=== PATIENT | female | born 1960 | race Caucasian/White ===

== ENCOUNTER 2016-08-19 13:33 | Inpatient (IN) | payer OTHER ==
[~2016-08-19] VITALS: Ht 162.5 cm
--- NOTE | ~2016-08-19 | PR ---
[place], [place] PROGRESS NOTE NAME: MONI CRONIN UNIT #: [id number] ROOM: 424 DOCTOR: IZABELA ALANIZ MD BIRTHDATE: [birth year] DOS: 08/23/2016 SUBJECTIVE: The patient has been admitted to hospital with history of marked weakness and difficulty in walking and the patient has severe arthritis of the back and hips that was causing the pain. She has also acute urinary tract infection with sepsis. The patient is feeling better now. Her urine culture and sensitivity shows E. coli infection, heavy growth of gram-positive bacteria, presently it is sensitive to many antibiotics including the one which she is already taking. CAT scan of the lumbar spine has been done, which showed chronic compression deformity of thoracolumbar junction, kyphosis, stable from the prior study, multilevel central canal stenosis, subarticular space compromise and L4-L5 foraminal compromise are noted and also felt to be chronic in nature. Her blood pressure is 110/62, pulse 68, respirations 18, temperature 98.5. The patient is having chronic renal failure and on hemodialysis and getting it. The patient is feeling better except some pain in the hip and the back. IZABELA ALANIZ MD CM:STEPHANIA [id number] IZABELA ALANIZ MD 09/29/16 1128 interface
--- NOTE | ~2016-08-19 | PR ---
[place], [place] PROGRESS NOTE [id number] UNIT #: [id number] ROOM: 424 DOCTOR: RANJANA GRIFFIN MD BIRTHDATE: [birth year] DOS: 08/21/2016 I am seeing this patient on behalf of Dr. Rosales. SUBJECTIVE: She is much better just finished her dinner. She is not short of breath, feels no palpitations and has no chest pain. She had left thoracentesis done. OBJECTIVE: GENERAL: She looks much better. Breathing is pretty comfortable. Her complexion looks reasonable. VITAL SIGNS: Pulse is 80 irregular at about 80 beats per minute. NECK: JVP is normal. CARDIOVASCULAR: Auscultation reveals irregular heart rate at about 80 beats per minute. No edema of the lower extremities. LUNGS: Breath sounds are diminished. She has crackles in both lungs, moreso on the right than on the left side. LABORATORY DATA: Monitor shows normal sinus rhythm at about 70-80 beats per minute. IMPRESSION: This patient has paroxysmal atrial fibrillation and is in normal sinus rhythm now and she is on Eliquis and current cardiac medications should be continued. From cardiac point, she may be discharged home. RANJANA GRIFFIN MD CM:PNTRANS [id number] RANJANA GRIFFIN MD 08/22/16 0747 interface
--- NOTE | ~2016-08-19 | PR ---
[place], [place] PROGRESS NOTE [id number] UN[facility] #: [id number] ROOM: 424 DOCTOR: IZABELA ALANIZ MD BIRTHDATE: [birth year] DOS: 08/22/2016 SUBJECTIVE: The patient who has been admitted to hospital with history of marked weakness and difficulty in walking. She fell down at home and sustained injury of the right shoulder and right hip, and she is complaining that she is feeling very weaker, not able to walk. She is getting physical therapy and has been seen by Dr. Retana for cardiac problem and he does not think there is any acute cardiac problem. She is having shortness of breath and anemia. Her basic metabolic profile showed glucose 82, BUN 32, creatinine 6.92. GFR is 6. CBC showed her hemoglobin 9.2, hematocrit 29.6, MCV 102.1. OBJECTIVE: VITAL SIGNS: Her blood pressure is 124/60, pulse 66, respirations 18, temperature 97.9. CHEST: Clear. HEART: Regular. ABDOMEN: Soft. The patient is getting dialysis for her chronic renal failure. IZABELA ALANIZ MD CM:PNTRANS [id number] IZABELA ALANIZ MD 09/29/16 1130 interface
--- NOTE | ~2016-08-19 | PR ---
[place], [place] PROGRESS NOTE [id number] UNIT #: [id number] ROOM: 424 DOCTOR: RANJANA GRIFFIN MD BIRTHDATE: [birth year] DOS: 08/21/2016 SUBJECTIVE: She feels much better. She walked around in the room a little bit today. She had diagnosis done and did not have chest pain or palpitations. Her breathing is pretty good. OBJECTIVE: GENERAL: She is very obese, pleasant, alert. VITAL SIGNS: Pulse is regular at 80, blood pressure is fine. NECK: JVP is difficult to assess. LUNGS: Clear. EXTREMITIES: No edema of the lower extremities. IMPRESSION: This patient has coronary disease and troponin I level was slightly and above normal, most likely due to severe anemia that she had along with hypertension and end-stage renal disease. From cardiac standpoint, she may be discharged home. RANJANA GRIFFIN MD CM:PNTRANS [phone] RANJANA GRIFFIN MD 08/22/16 0754 interface
--- NOTE | ~2016-08-19 | PR ---
[place], [place] PROGRESS NOTE [id number] UNIT #: [id number] ROOM: 424 DOCTOR: STACY CRONIN MD BIRTHDATE: [birth year] DOS: SUBJECTIVE: Twenty four-hour events noted. Discussed with the nursing staff. The patient's condition has not much changed since yesterday. OBJECTIVE: VITAL SIGNS: The last blood pressure is 130/50, heart rate is 69. HEENT: Unremarkable. NECK: Supple, no JVD. LUNGS: Diminished breath sounds. ABDOMEN: Soft, obese. EXTREMITIES: No edema. The patient does have some wheezing. GENERAL: The patient is morbidly obese. No rebound tenderness. LABORATORY DATA: Sodium 136. Hemoglobin 8.9, hematocrit 29.4. Sodium 141, potassium 4.7, BUN 24, creatinine 5.5, GFR is 8. IMPRESSION: End-stage renal disease, on dialysis, morbid obesity, atypical chest pain, gastroesophageal reflux disease, psoriasis, and hypertension. PLAN: Continue the present medication. Continue with dialysis. The patient has chronic hip pain. The patient had a hip x-ray basically showed bilateral osteoarthritis to a mild degree. Continue the pain medications and we will follow up. STACY CRONIN MD CM:PNTRANS 0705 20 STACY CRONIN MD 08/25/16 232 interface
--- NOTE | ~2016-08-19 | CON ---
[place], [place] REPORT OF CONSULTATION NAME[id number] UNIT #: [id number] ROOM: 424 DOCTOR: RANJANA GRIFFIN MD BIRTHDATE: [birth year] DOS: 08/20/2016 HISTORY OF PRESENT ILLNESS: This is a 55-year-old -[place] woman with a history of coronary artery disease. She had stents deployed in the left anterior descending artery a few years ago, this was done by me in [facility]. She has essential hypertension, end-stage renal disease and dialyzes 3 times a week, GERD, has had chronic anemia and morbid obesity. She does not have diabetes mellitus and never had a stroke or COPD. She quit smoking a very long time ago. No use of alcohol. FAMILY HISTORY: Positive for coronary artery disease, diabetes mellitus and hypertension. She was in the [facility] a few days ago and had her fistula recanalized I believe and at that time, she was found to have severe anemia. I believe hemoglobin was below 7 grams and she was transfused with 2 units of packed RBCs and the hemoglobin jordana to about 9 grams. She had developed some abdominal discomfort and has been constipated, felt very uncomfortable and came to the Emergency Department. She did not have any chest pain, pressure, heaviness and neck discomfort or arm discomfort. She did not have any undue shortness of breath or/more than usual shortness of breath and had no palpitations, dizziness or loss of consciousness and has not had any swelling of the lower extremities. HOME MEDICATIONS: Include aspirin, calcitriol, calcium acetate, calcium carbonate, carvedilol 25 b.i.d., clopidogrel 75 mg daily, famotidine 20 mg daily, hydrocodone p.r.n. Micardis 40 mg daily, Enbrel and Diastat cream. PHYSICAL EXAMINATION: GENERAL: The patient who is very pleasant, alert. She is moderately obese, looks little pale. No finger clubbing. VITAL SIGNS: Pulse is regular at 80 beats per minute, blood pressure 152/81. NECK: JVP difficult to assess. There is no obvious carotid bruit. HEART: There is no cardiomegaly. Auscultation revealed distant heart sounds. No rub. EXTREMITIES: She had no edema at all in the lower extremities and pedal pulses are palpable. LUNGS: Clear to auscultation and percussion with reduced breath sounds because of obesity. DIAGNOSTIC STUDIES: An ECG showed normal sinus rhythm with minimal ST segment depression in V5 and V6 and lead 1. An ECG on 10/15/[address] segment depression in similar leads. LABORATORY DATA: Troponin I level was 0.732 and 0.883. A week earlier, it was essentially normal. IMPRESSION: This patient with known coronary artery disease, has slightly increased troponin I level, but is entirely asymptomatic. Elevation of troponin is fairly common in patient with end-stage renal disease, the patient with [place], [place] REPORT OF CONSULTATION NAME: MONI CRONIN UNIT #: [id number] ROOM: 424 DOCTOR: RANJANA GRIFFIN MD BIRTHDATE: [birth year] volume overload and anemia. She had got severe anemia last week and this may be contributing to slightly increased troponin I level (this is probably due to her oxygen supply demand issue rather than occlusion of epicardial artery). At this time, I do not recommend any further cardiac workup. Should she develop any chest pain or heaviness, then one need to consider a normal noninvasive testing such as Lexiscan Cardiolite to look for any ischemia. She is not on a statin drug and I think this would be appropriate if no contraindication or side effects have been noted previously. I thank you for this consult. RANJANA GRIFFIN MD CM:CONSTR:REPORT OF CONSULTATION 0635 09/29/16 1138 interface EVA MALDONADO MD
--- NOTE | ~2016-08-19 | EKG ---
[place], [place] ELECTROCARDIOGRAM REPORT NAME: MONI CRONIN UNIT #: [id number] ROOM: 424 DOCTOR: RANJANA GRIFFIN MD BIRTHDATE: [birth year] DOS: 08/19/2016 TIME: 1459 hours. Normal sinus rhythm at 81 beats per minute. Minimal ST segment depression in V5 and V6 and lead I. No previous tracing is available for comparison. RANJANA GRIFFIN MD CM:EKGRPT:ELECTROCARDIOGRAM REPORT 0610 0800 RANJANA GRIFFIN MD
[2016-08-19 13:33] VITALS: BP 141/66
[~2016-08-19 13:33] MED LIST: ALAVERT D-12 HO1 T12 PO; ALBUTEROL0.09 MG/A2 IH; ANCEF1 GM; ANTIVERT/2525 MG PO; ASPIRIN ADULT L81 M1 PO; ASPIRIN ADULT L81 M2 PO; ASPIRIN325 MG PO; BENADRYL25 MG PO; CALCIUM ACETAT667 M2 PO; CIPROFLOXACIN500 MG PO; CLARITIN10 MG PO; COLACE100 MG PO; COREG CR40 MG PO; COREG12.5 MG PO; COREG25 MG PO; CUBICIN500 MG IV; DIPHENHYDRAMINE50 M1 PO; ENBREL50 MG/ML SC; FIORICET 325 MG1 TAB PO; FLEXERIL5 MG PO; FLONASE 0.05% 121 EA NAS; FLONASE ALLERG9.9 ML NAS; FLONASE0.05 MG/AC NS; HYCODAN/HYDROMET5 ML PO; HYDROCODONE BIT1 T11 PO; KEFLEX500 MG PO; KENALOG0.5% TP; MACROBID100 M1 PO; MECLIZINE HCL25 M1 PO; MEDROL DOSEPAK4 MG PO; MICARDIS40 M1 PO; MICARDIS40 MG PO; NIACIN50 MG PO; Nystatin Cream15 GM T; PEPCID20 MG PO; PLAVIX75 M1 PO; PLAVIX75 MG PO; PREDNICOT20 MG PO; PREDNISONE10 MG PO; PREDNISONE20 M1 PO; PREDNISONE20 MG PO; RENVELA800 MG PO; ROBITUSSIN DM 105 ML PO; Rocaltrol0.25 MCG PO; TOBRADEX 0.1%-0.5 ML OPH; TUMS EXTRA STR750 MG PO; TUMS SMOOTHIES750 M1 PO; VENTOLIN H0.09 MG/AC INH; VICODIN 5-3001 EACH PO; VICODIN 5/500 505 MG PO; VICODIN ES 7501 TAB PO; VITAMIN D-32000 UNIT PO; VITAMIN D50000 I3 PO; ZITHROMAX Z PA250 MG PO; ZITHROMAX250 MG PO; ZYRTEC10 MG PO
[2016-08-19 14:28] LABS: HEMATOCRIT 32.8 % (37.0-47.0); HEMOGLOBIN 10.6 g/dl (12.0-16.0); MEAN CORPUSCULAR HGB 32.3 pg (27.0-31.0); MEAN CORPUSCULAR HGB CONC 32.3 g/dl (33.0-37.0); NUCLEATED RED BLOOD CELL 0.1 10*3/uL (0.0-0.0); NUCLEATED RED BLOOD CELL 0.4 % (0.0-0.0); PLATELET COUNT AUTOMATED 241 10*3/uL (130-400); RED BLOOD COUNT 3.28 10*6/uL (4.10-5.10); RED CELL DISTRI WIDTH 16.4 % (0-14.5); WHITE BLOOD COUNT 12.3 10*3/uL (4.8-10.8)
[2016-08-19 14:44] LABS: ALBUMIN 2.6 gm/dl (3.1-4.5); BILIRUBIN, TOTAL 0.4 mg/dl (0.2-1.0); POTASSIUM 3.9 mmol/L (3.5-5.1); TOTAL PROTEIN 7.1 gm/dL (6.4-8.2)
[2016-08-19 14:46] LABS: TROPONIN I 0.967 ng/ml (<0.5)
[2016-08-19 14:47] LABS: LYMPHOCYTE # 1.5 10*3/uL (1.3-4.4); METAMYELOCYTES 1 % (0-0); MONOCYTE # 0.7 10*3/uL (0.1-1.0); NEUTROPHILS 81 % (47-73); PLATELET SUFFICIENCY NORMAL (NORMAL); POLYCHROMASIA SLIGHT; TOTAL CELLS COUNTED 100 #CELLS
[2016-08-19 15:00] VITALS: BP 140/88
[2016-08-19 18:12] VITALS: BP 150/84
[2016-08-19 18:23] LABS: CKMB 1.1 ng/ml (0.5-3.6)
[2016-08-19 18:35] LABS: TROPONIN I 0.883 ng/ml (<0.5)
[2016-08-19 20:00] VITALS: BP 152/81
[2016-08-20 00:43] LABS: CKMB 0.9 ng/ml (0.5-3.6)
[2016-08-20 00:45] LABS: TROPONIN I 0.732 ng/ml (<0.5)
[2016-08-20 06:39] LABS: CKMB 1.1 ng/ml (0.5-3.6)
[2016-08-20 06:45] LABS: BASO % 0.3 % (0.0-1.0); EOS # 0.2 10*3/uL (0.0-0.4); EOS % 1.5 % (1.0-4.0); HEMATOCRIT 30.4 % (37.0-47.0); HEMOGLOBIN 9.7 g/dl (12.0-16.0); IG # 0.2 10*3/uL (0.0-0.1); LYMPH # 1.5 10*3/uL (1.3-4.4); LYMPH % 14.3 % (27.0-41.0); MEAN CELL VOLUME 100.7 fl (81.0-99.0); MEAN CORPUSCULAR HGB 32.1 pg (27.0-31.0); MEAN CORPUSCULAR HGB CONC 31.9 g/dl (33.0-37.0); MONO # 0.9 10*3/uL (0.1-1.0); NEUT # 7.6 10*3/uL (2.3-7.9); NEUT % 73.2 % (47.0-73.0); NUCLEATED RED BLOOD CELL 0.1 10*3/uL (0.0-0.0); NUCLEATED RED BLOOD CELL 0.6 % (0.0-0.0); PLATELET COUNT AUTOMATED 237 10*3/uL (130-400); RED BLOOD COUNT 3.02 10*6/uL (4.10-5.10); RED CELL DISTRI WIDTH 15.8 % (0-14.5); WHITE BLOOD COUNT 10.4 10*3/uL (4.8-10.8)
[2016-08-20 06:46] LABS: TROPONIN I 0.698 ng/ml (<0.5)
[2016-08-20 07:03] LABS: ALBUMIN 2.6 gm/dl (3.1-4.5); BILIRUBIN, TOTAL 0.2 mg/dl (0.2-1.0); MAGNESIUM 2.2 mg/dL (1.5-2.1); PHOSPHOROUS 3.5 mg/dL (2.5-4.9); POTASSIUM 4.3 mmol/L (3.5-5.1); TOTAL PROTEIN 6.4 gm/dL (6.4-8.2)
[2016-08-20 16:00] VITALS: BP 128/53
[2016-08-20 18:48] LABS: BILIRUBIN NEGATIVE (NEGATIVE); BLOOD 2+ (NEGATIVE); CLARITY SL CLOUDY (CLEAR); COLOR YELLOW (YELLOW); GLUCOSE NEGATIVE (NEGATIVE); KETONE NEGATIVE (NEGATIVE); LEUKO ESTERASE 2+ (NEGATIVE); NITRITE NEGATIVE (NEGATIVE); PH 8.5 (5.0-9.0); PROTEIN 2+ (NEGATIVE); SPECIFIC GRAVITY 1.015 (1.005-1.030); UROBILINOGEN 0.2 E.U./dl (0.2-1.0)
[2016-08-20 18:56] LABS: EPITHELIAL CELLS 15-20; RBC 0-2 rbc/hpf (0-2)
[2016-08-20 18:57] LABS: BACTERIA 4+; URINE REFLEX COMMENT YES (NO)
[2016-08-20 20:00] VITALS: BP 143/49
[2016-08-21] VITALS: BP 134/60
[2016-08-21 07:43] LABS: BASO % 0.3 % (0.0-1.0); EOS # 0.5 10*3/uL (0.0-0.4); EOS % 5.1 % (1.0-4.0); HEMATOCRIT 29.6 % (37.0-47.0); HEMOGLOBIN 9.2 g/dl (12.0-16.0); IG # 0.1 10*3/uL (0.0-0.1); LYMPH # 2.3 10*3/uL (1.3-4.4); LYMPH % 22.5 % (27.0-41.0); MEAN CELL VOLUME 102.1 fl (81.0-99.0); MEAN CORPUSCULAR HGB 31.7 pg (27.0-31.0); MEAN CORPUSCULAR HGB CONC 31.1 g/dl (33.0-37.0); MEAN PLATELET VOLUME 11.1 fl (9.6-12.3); MONO % 9.7 % (3.0-9.0); NEUT # 6.1 10*3/uL (2.3-7.9); NEUT % 61.1 % (47.0-73.0); NUCLEATED RED BLOOD CELL 0.1 10*3/uL (0.0-0.0); NUCLEATED RED BLOOD CELL 0.6 % (0.0-0.0); PLATELET COUNT AUTOMATED 267 10*3/uL (130-400); RED CELL DISTRI WIDTH 15.5 % (0-14.5)
[2016-08-21 08:00] VITALS: BP 122/62
[2016-08-21 08:08] LABS: POTASSIUM 4.5 mmol/L (3.5-5.1)
[2016-08-21] MEDS ORDERED: BACTRIM DS 8001 TAB PO (15:50)
[2016-08-21 16:00] VITALS: BP 116/54
[2016-08-21 20:00] VITALS: BP 108/66
[2016-08-22] VITALS (7 sets, daily range): BP systolic 90–135; BP diastolic 50–63
[2016-08-22] MEDS ORDERED: COLACE100 MG PO (21:19)
[2016-08-23] VITALS: BP 135/73
[2016-08-23 08:00] VITALS: BP 126/46
[2016-08-23 12:00] VITALS: BP 110/62
[2016-08-23 16:00] VITALS: BP 119/52
[2016-08-23 20:00] VITALS: BP 124/58
[2016-08-24] VITALS: BP 125/72
[2016-08-24 08:00] VITALS: BP 110/37
[2016-08-24 08:41] LABS: BASO % 0.1 % (0.0-1.0); EOS # 0.3 10*3/uL (0.0-0.4); EOS % 2.3 % (1.0-4.0); HEMATOCRIT 28.3 % (37.0-47.0); HEMOGLOBIN 8.8 g/dl (12.0-16.0); IG # 0.1 10*3/uL (0.0-0.1); LYMPH # 1.3 10*3/uL (1.3-4.4); LYMPH % 11.3 % (27.0-41.0); MEAN CORPUSCULAR HGB 32.4 pg (27.0-31.0); MEAN CORPUSCULAR HGB CONC 31.1 g/dl (33.0-37.0); MEAN PLATELET VOLUME 10.9 fl (9.6-12.3); MONO % 9.2 % (3.0-9.0); NEUT # 8.4 10*3/uL (2.3-7.9); NEUT % 76.5 % (47.0-73.0); PLATELET COUNT AUTOMATED 303 10*3/uL (130-400); RED BLOOD COUNT 2.72 10*6/uL (4.10-5.10); RED CELL DISTRI WIDTH 15.6 % (0-14.5)
[2016-08-24 08:53] LABS: ALBUMIN 2.2 gm/dl (3.1-4.5); PHOSPHOROUS 5.4 mg/dL (2.5-4.9); POTASSIUM 5.6 mmol/L (3.5-5.1)
[2016-08-24 09:05] VITALS: BP 149/86
[2016-08-24 12:00] VITALS: BP 133/70
[2016-08-24 16:00] VITALS: BP 120/48
[2016-08-24 20:00] VITALS: BP 154/74
[2016-08-25] VITALS: BP 137/57
[2016-08-25 06:19] LABS: BASO % 0.1 % (0.0-1.0); EOS # 0.3 10*3/uL (0.0-0.4); EOS % 2.9 % (1.0-4.0); HEMATOCRIT 29.4 % (37.0-47.0); HEMOGLOBIN 8.9 g/dl (12.0-16.0); IG # 0.1 10*3/uL (0.0-0.1); LYMPH # 1.1 10*3/uL (1.3-4.4); LYMPH % 12.6 % (27.0-41.0); MEAN CORPUSCULAR HGB 31.8 pg (27.0-31.0); MEAN CORPUSCULAR HGB CONC 30.3 g/dl (33.0-37.0); MEAN PLATELET VOLUME 10.6 fl (9.6-12.3); MONO # 1.1 10*3/uL (0.1-1.0); MONO % 12.6 % (3.0-9.0); NEUT # 6.3 10*3/uL (2.3-7.9); NEUT % 71.2 % (47.0-73.0); PLATELET COUNT AUTOMATED 294 10*3/uL (130-400); RED CELL DISTRI WIDTH 15.9 % (0-14.5); WHITE BLOOD COUNT 8.9 10*3/uL (4.8-10.8)
[2016-08-25 06:52] LABS: POTASSIUM 4.7 mmol/L (3.5-5.1)
[2016-08-25 08:00] VITALS: BP 129/49
[2016-08-25] MEDS ORDERED: WALKER (10:42)
[2016-08-25 12:00] VITALS: BP 99/43
[2016-08-25 16:00] VITALS: BP 135/43
[2016-08-25 20:00] VITALS: BP 107/75
[2016-08-25 23:19] LABS: BILIRUBIN NEGATIVE (NEGATIVE); BLOOD 2+ (NEGATIVE); CLARITY SL CLOUDY (CLEAR); COLOR YELLOW (YELLOW); GLUCOSE NEGATIVE (NEGATIVE); KETONE NEGATIVE (NEGATIVE); LEUKO ESTERASE 1+ (NEGATIVE); NITRITE NEGATIVE (NEGATIVE); PH 8.5 (5.0-9.0); PROTEIN 2+ (NEGATIVE); UROBILINOGEN 0.2 E.U./dl (0.2-1.0)
[2016-08-25 23:30] LABS: BACTERIA TRACE; EPITHELIAL CELLS TNTC; URINE REFLEX COMMENT YES (NO)
[2016-08-26] VITALS: BP 131/59
[2016-08-26 07:41] VITALS: BP 100/72
[2016-08-26 08:30] LABS: BASO % 0.3 % (0.0-1.0); EOS # 0.4 10*3/uL (0.0-0.4); EOS % 5.5 % (1.0-4.0); HEMATOCRIT 28.7 % (37.0-47.0); HEMOGLOBIN 8.7 g/dl (12.0-16.0); LYMPH # 0.9 10*3/uL (1.3-4.4); LYMPH % 11.9 % (27.0-41.0); MEAN CELL VOLUME 105.1 fl (81.0-99.0); MEAN CORPUSCULAR HGB 31.9 pg (27.0-31.0); MEAN CORPUSCULAR HGB CONC 30.3 g/dl (33.0-37.0); MEAN PLATELET VOLUME 10.9 fl (9.6-12.3); MONO % 13.9 % (3.0-9.0); PLATELET COUNT AUTOMATED 305 10*3/uL (130-400); RED BLOOD COUNT 2.73 10*6/uL (4.10-5.10); RED CELL DISTRI WIDTH 15.8 % (0-14.5); WHITE BLOOD COUNT 7.3 10*3/uL (4.8-10.8)
[2016-08-26 08:43] LABS: ALBUMIN 2.1 gm/dl (3.1-4.5); PHOSPHOROUS 6.3 mg/dL (2.5-4.9); POTASSIUM 5.1 mmol/L (3.5-5.1)
[2016-08-26 12:00] VITALS: BP 129/72
[2016-08-26 16:00] VITALS: BP 156/84
[2016-08-26 20:00] VITALS: BP 123/51
[2016-08-27] VITALS: BP 120/44
[2016-08-27 08:00] VITALS: BP 130/50
[2016-08-27 12:00] VITALS: BP 122/59
[2016-08-27] MEDS ORDERED: TESSALON PERLE100 MG PO (13:32)
== END 2016-08-27 14:58 | disposition home or self-care (01) | DRG 871 ==
LOC: ED 13:33 → 4E 16:54 → EDHOLD 16:54 → 4E 17:54
PROVIDERS: Emergency Medicine; Hospitalist; Internal Medicine Nephrology
PROC: 5A1D60Z (ICD-10-PCS; principal; 2016-08-20)
DX: A41.9 Sepsis, unspecified organism (principal); E43 Unspecified severe protein-calorie malnutrition; I12.0 Hypertensive chronic kidney disease with stage 5 chronic kidney disease or end stage renal disease; N18.6 End stage renal disease; I48.0 Paroxysmal atrial fibrillation; Z68.42 Body mass index [BMI] 45.0-49.9, adult; N39.0 Urinary tract infection, site not specified; E83.41 Hypermagnesemia; R07.89 Other chest pain; M79.652 Pain in left thigh; M25.552 Pain in left hip; M25.551 Pain in right hip; E83.9 Disorder of mineral metabolism, unspecified; D63.1 Anemia in chronic kidney disease; D50.0 Iron deficiency anemia secondary to blood loss (chronic); I25.119 Atherosclerotic heart disease of native coronary artery with unspecified angina pectoris; D53.9 Nutritional anemia, unspecified; L40.9 Psoriasis, unspecified; E83.51 Hypocalcemia; B96.20 Unspecified Escherichia coli [E. coli] as the cause of diseases classified elsewhere; K21.9 Gastro-esophageal reflux disease without esophagitis; K59.00 Constipation, unspecified; E66.01 Morbid (severe) obesity due to excess calories; E89.2 Postprocedural hypoparathyroidism; Z98.890 Other specified postprocedural states; Z99.2 Dependence on renal dialysis; Z88.8 Allergy status to other drugs, medicaments and biological substances; Z88.6 Allergy status to analgesic agent; Z88.1 Allergy status to other antibiotic agents; Z91.041 Radiographic dye allergy status; Z82.49 Family history of ischemic heart disease and other diseases of the circulatory system; Z83.3 Family history of diabetes mellitus

== ENCOUNTER 2017-02-16 10:11 | Inpatient (IN) | payer OTHER ==
[2017-02-16] VITALS (8 sets, daily range): BP systolic 127–224; BP diastolic 60–105
[~2017-02-16] VITALS: Ht 162.6 cm; Wt 113.4 kg
[~2017-02-16 10:11] MED LIST changes: +BACTRIM DS 8001 TAB PO; +TESSALON PERLE100 MG PO; +WALKER
[2017-02-16 10:54] LABS: BASO % 0.1 % (0.0-1.0); EOS # 0.1 10*3/uL (0.0-0.4); EOS % 0.3 % (1.0-4.0); HEMOGLOBIN 12.2 g/dl (12.0-16.0); IG # 0.1 10*3/uL (0.0-0.1); LYMPH # 0.6 10*3/uL (1.3-4.4); LYMPH % 4.2 % (27.0-41.0); MEAN CELL VOLUME 98.5 fl (81.0-99.0); MEAN CORPUSCULAR HGB 30.8 pg (27.0-31.0); MEAN CORPUSCULAR HGB CONC 31.3 g/dl (33.0-37.0); MEAN PLATELET VOLUME 10.7 fl (9.6-12.3); MONO # 0.9 10*3/uL (0.1-1.0); MONO % 5.8 % (3.0-9.0); NEUT # 13.3 10*3/uL (2.3-7.9); NEUT % 89.1 % (47.0-73.0); PLATELET COUNT AUTOMATED 258 10*3/uL (130-400); RED BLOOD COUNT 3.96 10*6/uL (4.10-5.10); RED CELL DISTRI WIDTH 15.4 % (0-14.5); WHITE BLOOD COUNT 14.9 10*3/uL (4.8-10.8)
[2017-02-16 11:11] LABS: ALBUMIN 2.8 gm/dl (3.1-4.5); BILIRUBIN, TOTAL 0.5 mg/dl (0.2-1.0); POTASSIUM 4.4 mmol/L (3.5-5.1); TOTAL PROTEIN 7.2 gm/dL (6.4-8.2)
[2017-02-16 12:11] LABS: BILIRUBIN NEGATIVE (NEGATIVE); BLOOD TRACE-INTACT (NEGATIVE); CLARITY CLEAR (CLEAR); COLOR YELLOW (YELLOW); GLUCOSE TRACE (NEGATIVE); KETONE NEGATIVE (NEGATIVE); LEUKO ESTERASE NEGATIVE (NEGATIVE); NITRITE NEGATIVE (NEGATIVE); PH 8.5 (5.0-9.0); PROTEIN 2+ (NEGATIVE); UROBILINOGEN 0.2 E.U./dl (0.2-1.0)
[2017-02-16 12:17] LABS: BACTERIA TRACE; URINE REFLEX COMMENT NO (NO)
[2017-02-17 03:31] VITALS: BP 169/65
[2017-02-17 06:01] LABS: HEMOGLOBIN A1c 5.1 % (4.8-5.6)
[2017-02-17 06:05] LABS: BASO % 0.1 % (0.0-1.0); EOS # 0.3 10*3/uL (0.0-0.4); EOS % 3.8 % (1.0-4.0); HEMATOCRIT 33.5 % (37.0-47.0); HEMOGLOBIN 10.2 g/dl (12.0-16.0); LYMPH # 1.5 10*3/uL (1.3-4.4); LYMPH % 17.1 % (27.0-41.0); MEAN CELL VOLUME 100.6 fl (81.0-99.0); MEAN CORPUSCULAR HGB 30.6 pg (27.0-31.0); MEAN CORPUSCULAR HGB CONC 30.4 g/dl (33.0-37.0); MEAN PLATELET VOLUME 11.2 fl (9.6-12.3); MONO # 0.9 10*3/uL (0.1-1.0); MONO % 10.5 % (3.0-9.0); NEUT # 6.1 10*3/uL (2.3-7.9); NEUT % 68.2 % (47.0-73.0); PLATELET COUNT AUTOMATED 225 10*3/uL (130-400); RED BLOOD COUNT 3.33 10*6/uL (4.10-5.10); RED CELL DISTRI WIDTH 15.7 % (0-14.5)
[2017-02-17 06:15] LABS: ALBUMIN 2.3 gm/dl (3.1-4.5); BILIRUBIN, TOTAL 0.4 mg/dl (0.2-1.0); MAGNESIUM 2.1 mg/dL (1.5-2.1); PHOSPHOROUS 6.7 mg/dL (2.5-4.9); POTASSIUM 4.5 mmol/L (3.5-5.1)
[2017-02-17 06:21] LABS: FREE T4 1.13 ng/dl (0.76-1.46); THYROID STIM HORMONE (HS) 0.486 uIU/ml (0.358-4.75)
[2017-02-17 07:03] LABS: FOLIC ACID 2.49 ng/mL (>5.38); VITAMIN D, 25-HYDROXY 22.8 ng/mL (30-100)
[2017-02-17 08:00] VITALS: BP 128/71
[2017-02-17 12:00] VITALS: BP 125/72
[2017-02-17 16:07] VITALS: BP 164/65
[2017-02-17 20:00] VITALS: BP 147/71
[2017-02-18] VITALS: BP 143/65
[2017-02-18 04:00] VITALS: BP 139/68
[2017-02-18 05:51] LABS: ALBUMIN 2.2 gm/dl (3.1-4.5); BILIRUBIN, TOTAL 0.4 mg/dl (0.2-1.0); PHOSPHOROUS 5.9 mg/dL (2.5-4.9); POTASSIUM 4.6 mmol/L (3.5-5.1); TOTAL PROTEIN 6.2 gm/dL (6.4-8.2)
[2017-02-18 06:03] LABS: BASO % 0.1 % (0.0-1.0); EOS # 0.5 10*3/uL (0.0-0.4); HEMATOCRIT 34.3 % (37.0-47.0); HEMOGLOBIN 10.6 g/dl (12.0-16.0); LYMPH # 1.7 10*3/uL (1.3-4.4); LYMPH % 23.6 % (27.0-41.0); MEAN CELL VOLUME 100.6 fl (81.0-99.0); MEAN CORPUSCULAR HGB 31.1 pg (27.0-31.0); MEAN CORPUSCULAR HGB CONC 30.9 g/dl (33.0-37.0); MEAN PLATELET VOLUME 11.2 fl (9.6-12.3); MONO # 0.9 10*3/uL (0.1-1.0); MONO % 12.7 % (3.0-9.0); NEUT % 56.3 % (47.0-73.0); PLATELET COUNT AUTOMATED 213 10*3/uL (130-400); RED BLOOD COUNT 3.41 10*6/uL (4.10-5.10); RED CELL DISTRI WIDTH 15.3 % (0-14.5)
[2017-02-18 08:00] VITALS: BP 161/62
[2017-02-18 12:00] VITALS: BP 171/71
[2017-02-18] MEDS ORDERED: LINEZOLID-600 MG/300 IV (13:37)
[2017-02-18] MEDS ORDERED: GENTAMICIN SULF15 GM T (13:46)
[2017-02-18] MEDS ORDERED: CEFTRIAXON2 GM/50 ML IV (13:46)
[2017-02-18] MEDS ORDERED: PHARMASSURE FO0.4 MG PO (13:46)
[2017-02-20 12:07] LABS: ORGANISM ID Not indicated. (.); SPECIMEN SOURCE Urine (.); STREPTOCOCCUS PNEUMONIAE AG Negative (Negative)
== END 2017-02-18 16:10 | disposition short-term general hospital (02) | DRG 314 ==
LOC: ED 10:11 → EDHOLD 12:05 → ICCU 12:05
PROVIDERS: Emergency Medicine; Internal Medicine
DX: T80.211A Bloodstream infection due to central venous catheter, initial encounter (principal); A40.1 Sepsis due to streptococcus, group B; E43 Unspecified severe protein-calorie malnutrition; I50.33 Acute on chronic diastolic (congestive) heart failure; J18.9 Pneumonia, unspecified organism; N18.6 End stage renal disease; Z68.41 Body mass index [BMI] 40.0-44.9, adult; E66.01 Morbid (severe) obesity due to excess calories; I16.1 Hypertensive emergency; I13.2 Hypertensive heart and chronic kidney disease with heart failure and with stage 5 chronic kidney disease, or end stage renal disease; R42 Dizziness and giddiness; R74.8 Abnormal levels of other serum enzymes; R73.9 Hyperglycemia, unspecified; D63.1 Anemia in chronic kidney disease; K21.9 Gastro-esophageal reflux disease without esophagitis; J44.9 Chronic obstructive pulmonary disease, unspecified; N28.1 Cyst of kidney, acquired; L40.9 Psoriasis, unspecified; E53.8 Deficiency of other specified B group vitamins; I25.10 Atherosclerotic heart disease of native coronary artery without angina pectoris; E55.9 Vitamin D deficiency, unspecified; L30.8 Other specified dermatitis; M25.552 Pain in left hip; M25.551 Pain in right hip; Z99.2 Dependence on renal dialysis; Z95.5 Presence of coronary angioplasty implant and graft; Z88.6 Allergy status to analgesic agent; Z88.1 Allergy status to other antibiotic agents; Z88.5 Allergy status to narcotic agent; Z88.8 Allergy status to other drugs, medicaments and biological substances; Z91.041 Radiographic dye allergy status; Z87.891 Personal history of nicotine dependence; Z79.82 Long term (current) use of aspirin; E89.2 Postprocedural hypoparathyroidism; Y83.8 Other surgical procedures as the cause of abnormal reaction of the patient, or of later complication, without mention of misadventure at the time of the procedure; Y92.89 Other specified places as the place of occurrence of the external cause

== ENCOUNTER 2017-04-18 18:36 | Emergency (ER) | payer OTHER ==
[~2017-04-18] VITALS: Ht 162.5 cm; Wt 104.3 kg
[~2017-04-18 18:36] MED LIST changes: +CEFTRIAXON2 GM/50 ML IV; +GENTAMICIN SULF15 GM T; +LINEZOLID-600 MG/300 IV; +PHARMASSURE FO0.4 MG PO
== END 2017-04-18 20:07 | disposition home or self-care (01) ==
LOC: ED 18:36
DX: T82.9XXA Unspecified complication of cardiac and vascular prosthetic device, implant and graft, initial encounter (principal); I13.2 Hypertensive heart and chronic kidney disease with heart failure and with stage 5 chronic kidney disease, or end stage renal disease; N18.6 End stage renal disease; K21.9 Gastro-esophageal reflux disease without esophagitis; Z88.1 Allergy status to other antibiotic agents; Z88.8 Allergy status to other drugs, medicaments and biological substances; Z88.6 Allergy status to analgesic agent; Z79.82 Long term (current) use of aspirin; Z99.2 Dependence on renal dialysis

== ENCOUNTER → 2017-05-19 | Outpatient (CLI) | payer OTHER | END | disposition home or self-care (01) | LOC: US 10:19 | DX: I82.C11 Acute embolism and thrombosis of right internal jugular vein (principal); M79.89 Other specified soft tissue disorders ==

== ENCOUNTER 2017-05-29 18:04 | Inpatient (IN) | payer OTHER ==
[~2017-05-29] VITALS: Ht 157.4 cm; Wt 116.3 kg
[2017-05-29] VITALS (18 sets, daily range): BP systolic 71–235; BP diastolic 33–123
--- NOTE | ~2017-05-29 | CON ---
[place], [place] REPORT OF CONSULTATION [id number] UNIT #: [id number] ROOM: [facility] DOCTOR[facility] [birth year] DOS: 05/30/2017 COVERING PHYSICIAN: Dr. Mock, Hammer Operator HISTORY OF PRESENT ILLNESS: The patient may have bacteremia and Troponin is elevated marginally, probably related to the sepsis, bacteremia, and also from the renal failure dialysis dependent end-stage. It appears to be noncardiac. EKG did not show any acute changes. No significant progressive change in the troponin. The patient is on the ventilator and the patient is on sedation. Skin is warm and not diaphoretic. The patient is on pressor agent. Blood pressure 105/50, 80/30, 91/40. Hypotensive, borderline blood pressure. Case discussed with Dr. Jeff Greenwood and difficult venous access. We attempted to get the access, could not get through it. The patient has a previous AV fistula on both sides, tunneled dialysis and one side apparently bacteremia could be coming from and possible ____ and I will discuss with Dr. Mock in the morning. The nursing staff here also will inform Dr. Mock. The patient is coming under Dr. Green and Dr. Mock, who may do the transesophageal echocardiogram to evaluate for any underlying bacterial endocarditis. The existing tunneled dialysis catheter will come out, put a new one and at the same time try to get a permanent access so that the patient continue to have the good IV access to get IV antibiotics given and the blood drawn and CKMV is elevated. Troponin is 1.7, but it has remained same but without any EKG changes. No clinical manifestation to indicate acute myocardial infarctions. Although, troponin is 1.8, but not critically different and 1.15 also was then. There is redness in the left shoulder and armpit area and underlying infectious cellulitis cannot be excluded. PAST MEDICAL HISTORY: The patient has hypothyroidism, hypercalcemia, hypertension, hypertensive cardiovascular coronary artery disease, morbid obesity, esophagitis, gastroesophageal reflux disease and macrocytic anemia. The patient has a previous history of fistula formation for the dialysis apparently and has been using the tunneled dialysis catheter, history of coronary artery graft with , history of umbilical hernia repair, parathyroidectomy and removal of arteriovenous graft in the past, and stent in the coronary artery. SOCIAL HISTORY: No drug or alcohol use. No history of smoking. ALLERGIES: The patient's multiple allergies has been registered. LABORATORY DATA: EKG, sinus rhythm. Nonspecific ST-T changes, no acute changes noted. IMPRESSION: Noncardiac troponin elevation, does not appears to be clinically or acute coronary syndrome at this time and overwhelming concern at this time congestive heart failure, respiratory failure and bacteremia, sepsis, and possible endocarditis and tunneled dialysis may come out and cut the venous access and put a new tunneled dialysis catheter for the dialysis. Dr. Green is admitting Dr. Mock will the follow the patient at [facility]. Dr. Platt is the churn operator. He will follow the patient at the [place], [place] REPORT OF CONSULTATION NAME: MONI CRONIN UNIT #: [id number] ROOM: [facility] DOCTOR: SANCHEZ TOTH [facility] BIRTHDATE: [birth year] [facility] and I will inform Dr. Mock about the current status of the patient. Thank you very for asking me to see the patient and Dr. Mock will follow the patient at [place]. TETE BRADFORD MD CM:CONSTR:REPORT OF CONSULTATION 1934 05/31/17 1004 interface IZABELA ALANIZ MD
--- NOTE | ~2017-05-29 | EKG ---
[place], [place] ELECTROCARDIOGRAM REPORT NAME: MONI CRONIN UNIT #: [id number] ROOM: [facility] DOCTOR: RANJANA GRIFFIN MD BIRTHDATE: [birth year] DOS: 05/29/2017 TIME: 2144 hours. Normal sinus rhythm at 93 beats per minute. Minimal ST segment depression in lateral leads. When compared with an ECG done about 3 hours earlier, no significant change has become evident, except the heart rate is little slower. RANJANA GRIFFIN MD CM:EKGRPT:ELECTROCARDIOGRAM REPORT 1139 [id number] RANJANA GRIFFIN MD
--- NOTE | ~2017-05-29 | CON ---
[place], [place] REPORT OF CONSULTATION NAME: MONI CRONIN [facility] #: [id number] UNIT #: [id number] ROOM: [facility] DOCTOR: CHIN HATCH MD BIRTHDATE: [birth year] DOS: 05/30/2017 REASON FOR CONSULTATION: Management of dialysis/patient known to you. HISTORY OF PRESENT ILLNESS: The patient is a 56-year-old female. She has a past questionable history of end-stage renal disease. She undergoes dialysis Wednesday, Wednesday, Wednesday at [facility] under the care of our practice. The patient has a number of failed dialysis access. She currently has a right upper extremity AV fistula, has not matured yet. She does have tunneled dialysis catheter in her right IJ it seems. Exact details of what transpired are not clear other than the patient presented to the emergency room seems last night with shortness of breath, pulmonary edema, was started on BiPAP. She eventually was intubated and transferred to the intensive care unit. The patient was hypotensive and was started on pressors. Blood cultures were drawn yesterday and apparently now are growing Gram-positive cocci in clusters in 2 bottles. She has been started on broad spectrum antibiotics. Again the exact details of what has transpired so far are not quite clear. She has had slight increase in her troponin level as well. All information was obtained from review of the records, the patient was unable to obviously give any history. I do not see that there is any reported syncope or seizure. Apparently, the patient was hypoxic even for EMS with sats noted in the 70s. The patient was on sedation when I had seen her. ALLERGIES: Listed to CODEINE, OXYCODONE, IV CONTRAST, WELLBUTRIN, SENSIPAR, CIPROFLOXACIN, CARDIZEM, NEXIUM, PREVACID, METHOTREXATE, AMOXICILLIN, CODEINE, MEPERIDINE AND VANCOMYCIN. MEDICATIONS: Include Fortaz, propofol, aztreonam, norepinephrine, Zyvox. PAST MEDICAL HISTORY: 1. End-stage renal disease, on hemodialysis as stated above. 2. Coronary artery disease. 3. Anemia. 4. History of angioedema. 5. AV fistula creation on a number of occasions. 6. Tunneled dialysis catheter placement. 7. Hypertension. 8. Obesity. 9. Polycystic kidney disease. 10. Psoriasis. 11. Yeast dermatitis. 12. Cardiac catheterization. 13. x 2. 14. Hernia repair. 15. History of parathyroidectomy. 16. History of cardiac stents. 17. Anemia of chronic disease. FAMILY HISTORY: Positive for polycystic kidney disease and diabetes. Otherwise, noncontributory. [place], [place] REPORT OF CONSULTATION NAME: MONI CRONIN UNIT #: [id number] ROOM: [facility] DOCTOR: CHIN HATCH MD BIRTHDATE: [birth year] SOCIAL HISTORY: No current tobacco, alcohol or illicit drugs. REVIEW OF SYSTEMS: As per HPI, otherwise a 10-point review of systems was reviewed and was negative or unobtainable. PHYSICAL EXAMINATION: VITAL SIGNS: T max of 101, pulse was in the 70s, respiratory rate 14, systolic blood pressures were in the 90s-110s. GENERAL: She is critically ill, sedated, intubated, sedated on vent support. HEENT: Endotracheal tube is in place. Anicteric sclerae. She has a thick appearing neck. Mucous membranes were dry. Pharynx otherwise clear. NECK: Supple. Trachea midline. There is no lymphadenopathy or thyromegaly. LUNGS: Diminished breath sounds, appreciable wheezes. No tactile fremitus. She is not breathing excessively over the vent. HEART: Normal S1, S2. No rub, thrill or gallop. ABDOMEN: Obese, soft, nontender. There is no organomegaly or rigidity, rebound or guarding. There is no CVA tenderness. EXTREMITIES: Had no edema. There is no lower extremity lymphadenopathy. Distal pulses are present. SKIN: She had no overt rash. She did have yeast dermatitis in her bilateral groin areas and lower abdominal area. Skin temperature was warm. NEUROLOGIC: She is sedated, otherwise neurological exam is limited. DIAGNOSTIC DATA: Blood cultures were drawn, it seems showing Gram-positive cocci in cultures 4 out of 4 bottles, hemoglobin 11.0, white count of 23,000, platelets 246, BUN 29, creatinine 6.7, sodium 138, potassium 5.3, CO2 of 20, calcium of 8.0, albumin of 2.5. The chest x-ray was personally reviewed, my interpretation was bilateral infiltrate/edema. IMPRESSION: 1. End-stage renal disease on hemodialysis Wednesday, Wednesday and Wednesday through a tunneled dialysis catheter. 2. Bacteremia with septic shock. 3. Respiratory failure. 4. Anemia. 5. Elevated troponin/questionable N-STEMI. 6. Yeast dermatitis. 7. Numerous allergies including vancomycin. 8. Coronary artery disease. 9. Apparent history of psoriasis. PLAN: 1. Continue ongoing hemodynamic support. Central line is being placed. Would recommend an arterial line as well. Monitor blood pressure very carefully. 2. The patient has blood cultures that are positive. Her dialysis catheter will need to be removed. Would recommend consulting surgery to remove the catheter. She will need a temporary dialysis catheter to resume dialysis as well. 3. Would consult infectious disease to evaluate the patient. She likely will [place], [place] REPORT OF CONSULTATION NAME: MONI CRONIN UNIT #: [id number] ROOM: [facility] DOCTOR: HOLDEN TOTH,CHIN Merino BIRTHDATE: [birth year] need to rule out endocarditis. 4. Dose medications for end-stage renal disease. The patient may certainly require continuous renal replacement therapy. She will be evaluated in the morning for dialysis. We will give Epogen with dialysis. Transfuse as needed. This was discussed with the patient's nurse. Thank you for this consultation. We will follow with you. CHIN HATCH MD CM:CONSTR:REPORT OF CONSULTATION 1257 05/30/17 1857 interface
--- NOTE | ~2017-05-29 | WRIGHTHP ---
[place], [place] PATIENT HISTORY AND PHYSICAL EXAM NAME: MONI CRONIN [facility] #: [id number] UNIT #: [id number] ROOM: [facility] DOCTOR: IZABELA ALANIZ MD BIRTHDATE: [birth year] DOS: 05/29/2017 HISTORY OF PRESENT ILLNESS: The patient has been admitted to the hospital this morning with very severe difficulty in breathing and right now she is on respirator and cannot talk to me what is happening to her but according to her daughter, the patient was feeling fairly good day before yesterday, yesterday morning she started having pain in the left shoulder and left neck and then developed acute difficulty in breathing and progressively getting worse and she was not able to move around or do anything and she came to Emergency Department where she was found to be having severe congestive heart failure and needed to be admitted to the ICU and was needed to be put on the respirator. The patient was last admitted to hospital in January 2016. The patient has history of chronic kidney disease and is on kidney dialysis. PAST MEDICAL HISTORY: Chest pain, elevated troponin level, end-stage renal failure, moderate protein chlorine malnutrition, macrocytic anemia and GERD syndrome, esophagitis, psoriasis, morbid obesity, hypermagnesemia, CAD, hypertension, hypocalcemia, hypoparathyroidism, constipation, left thigh pain, urinary tract infection. The patient has multiple alleges, she has history of allergic angioedema. PAST SURGICAL HISTORY: The patient has history of fistula formation for her dialysis, cardiac catheterization, history of , history of hernia repair, history of umbilical hernia repair, history of parathyroidectomy, status post removal of arteriovenous graft, stent in the coronary artery. SOCIAL HISTORY: The patient does not drink and does not do any drugs. She does not smoke. FAMILY HISTORY: Mother and father both have high blood pressure. ALLERGIES: SHE IS ALLERGIC TO IV DYE, BUPRENORPHINE, PERCOCET, CIPROFLOXACIN, DILTIAZEM, NEXIUM, PREVACID, METHOTREXATE, OXYCODONE, AMOXICILLIN, VANCOMYCIN. MEDICATIONS: She is taking following medication at home: Aspirin 81 mg daily, calcitriol 1 mcg daily, calcium acetate 667 mg 3 times daily, carvedilol 25 mg twice daily, Plavix 75 mg daily, Colace p.r.n., Pepcid 20 mg daily, hydrocodone/acetaminophen 5/325 mg daily and Micardis 80 mg daily. PHYSICAL EXAMINATION: GENERAL: The patient is lying in the bed on respirator. Cannot talk and she is on dopamine drip which is maintained slowly. LABORATORY DATA: Lactic acidosis base is due. Protime is 10.4. Comprehensive metabolic profile showed glucose 117, creatinine is 5.89, GFR is 7, sodium 135, magnesium is 2.2, alkaline phosphatase is 181. ProBNP is 26,477. Troponin level on admission was 0.20, but now it has gone high. Her latest CK and CK-MB, troponin level, CK is 212, CK-MB is 7.7, troponin level is 1.76. Blood culture showed gram-positive cocci in cluster. CBC showed white count 23,200, hemoglobin 11.9, hematocrit 37.6, 82% neutrophils, 10%, lymphocyte and 90% [place], [place] PATIENT HISTORY AND PHYSICAL EXAM NAME: MONI CRONIN [facility] #: [id number] UNIT #: [id number] ROOM: [facility] DOCTOR: IZABELA ALANIZ MD BIRTHDATE: [birth year] neutrophils. Arterial blood gas shows pH 7.38, pCO2 of 42, pO2 of 61.7. O2 saturation 90.3, that is why patient needed to be on respirator due to respiratory failure. DIAGNOSES: Myocardial infarction with acute congestive heart failure, respiratory failure, septicemia, history of end-stage renal disease, hypertension, history of coronary artery disease, history of angioplasty, gastroesophageal reflux disease syndrome, chronic pain, hypoparathyroidism, moderate protein calorie malnutrition, morbid obesity, polycystic kidney disease, psoriasis. PLAN: The patient is right now on respirator, consultation has been called with Dr. Will, vp research and also with Dr. Platt, systems analyst developer. Her condition is very, very serious and critical. This has been explained very clearly to the family. IZABELA ALANIZ MD CM:HISPHYS:PATIENT HISTORY AND PHYSICAL EXAMINATION 1126 1251 IZABELA ALANIZ MD 05/30/17 1250 interface
--- NOTE | ~2017-05-29 | EKG ---
[place], [place] ELECTROCARDIOGRAM REPORT NAME: MONI CRONIN UNIT #: [id number] ROOM: [facility] DOCTOR: RANJANA GRIFFIN MD BIRTHDATE: [birth year] DOS: 05/30/2017 TIME: 0308 hours. Normal sinus rhythm at 76 beats per minute. Minimal ST segment depression in lateral and inferior leads. No significant change from an ECG of the previous day. RANJANA GRIFFIN MD CM:EKGRPT:ELECTROCARDIOGRAM REPORT [id number] RANJANA GRIFFIN MD
--- NOTE | ~2017-05-29 | EKG ---
[place], [place] ELECTROCARDIOGRAM REPORT NAME: MONI CRONIN UNIT #: [id number] ROOM: [facility] DOCTOR: RANJANA GIRFFIN MD BIRTHDATE: [birth year] DOS: 05/29/2017 TIME: 1810 hours. Sinus tachycardia at 105 beats per minute. The tracing is within normal limits. No previous tracing is available for comparison. RNAJANA GRIFFIN MD CM:EKGRPT:ELECTROCARDIOGRAM REPORT [id number] RANJANA GRIFFIN MD
--- NOTE | ~2017-05-29 | CON ---
[place], [place] REPORT OF CONSULTATION NAME: MONI CRONIN [facility] #: [id number] UNIT #: [id number] ROOM: [facility] DOCTOR: DORITA PACK MD,GRANT BIRTHDATE: [birth year] DOS: 05/30/2017 CONSULTATION REQUESTED BY: Dr. Corral. REASON FOR CONSULTATION: Assess the patient's current acute respiratory failure. The patient is unable to give me any history. All the history has been obtained after review of current documentation, medical record by the other physician and the nursing note. HISTORY OF PRESENT ILLNESS: This is a 56-year-old female who has been admitted to the hospital under the care of Dr. Corral on 05/29/2017. The patient presented to the hospital as she has been noted with symptoms of increased shortness of breath, which occurred in the morning prior to the assessment in the Emergency Room. The shortness of breath has been present at rest and noted clinically worsened. The patient was noted with significant difficulty speaking, because of the shortness of breath as well. She has been admitted to the hospital. The patient was noted with progressive respiratory failure requiring intubation and mechanical ventilation. She has been currently intubated, noted on mechanical ventilation. She has been sedated with intravenous Diprivan as well. She was also described the pain in the left shoulder as well as left leg area along with the symptoms of shortness of breath. As the patient was assessed in the Emergency Room, she has been described findings of congestive heart failure and been hospitalized. The x-ray finding of the patient is noted quite limited because of very large body habitus and difficulty to get significantly well exposed x-ray because of the large body habitus. The patient has a blood culture, which were done in the Emergency Room, which has been noted positive for the gram-positive cocci, in 2 out of 2 bottles. She was also noted with hypotension, requiring use of the vasopressor of the patient for the medical management of hypotension. Cardiac enzymes for the patient was also noted mild elevation of the troponin at this time as well. The mechanical ventilation, started the patient on the oxygen supplementation has been gradually decreased. The patient has been known with history of end-stage renal failure requiring hemodialysis. She has been noted with some problems intermittently with the vascular access for the dialysis with fistula and the other dialysis catheters. REVIEW OF SYSTEMS: Could not be completed because the patient is currently intubated, noted on mechanical ventilation. PAST MEDICAL HISTORY: Noted with history of: 1. End-stage renal failure, on hemodialysis. 2. Large body habitus with morbid obesity. 3. History of congestive heart failure with diastolic dysfunction. 4. Anemia of chronic kidney disease. 5. History of gastroesophageal reflux. 6. Essential hypertension. 7. History of hyperparathyroidism. 8. Protein-calorie malnutrition. [place], [place] REPORT OF CONSULTATION NAME: MONI CRONIN UNIT #: [id number] ROOM: [facility] DOCTOR: DORITA PACK MD,[facility] BIRTHDATE: [birth year] 9. History of polycystic kidney disease. 10. History of psoriasis. 11. Yeast dermatitis. PAST SURGICAL HISTORY: 1. Fistula formation all the upper extremities. 2. Tesio catheter insertion in the right chest for the dialysis. 3. Cardiac catheterization. 4. x 2. 5. Hernia repair. 6. Parathyroidectomy. 7. Coronary artery insertion with the patient cardiac catheterization. The patient had 3 stents placed previously. SOCIAL HISTORY: She has been reported nonsmoker. There is no history of alcohol or illicit drug use was described. The patient lives at home. FAMILY HISTORY: Has been reported for hypertension in both parents. MEDICATIONS: The medication listed ongoing for this patient were noted as use of Levophed intravenously, IV ceftazidime, aztreonam, Zyvox and propofol. Some other p.r.n. medications also administered. DRUG ALLERGIES: Noted: 1. IVP DYE. 2. CODEINE. 3. PERCOCET. 4. HOMATROPINE. 5. METHOTREXATE. 6. CIPROFLOXACIN. 7. AMOXICILLIN. 8. CARDIZEM. 9. WELLBUTRIN. 10. MEPERIDINE. 11. VANCOMYCIN CAUSING ITCHING. 12. SENSIPAR. 13. NEXIUM. PHYSICAL EXAMINATION: GENERAL: This is a 56-year-old female who has been noted currently awake, intubated on mechanical ventilator, height of 5 feet 3 inches, weight of 256 pounds, BMI 46.9. VITAL SIGNS: For the patient which were recorded. The patient showed rectal temperature 100.8 degree Fahrenheit and oral temperature noted 101 degree Fahrenheit. The respiratory rate of the patient ranged between 16-28. Heart rate 116-93 with sinus tachycardia, blood pressure was noted as lowest of 80/41 and blood pressure at this time are noted 132/50. Intake for the patient was at 2200 mL, output was 50 mL. The pulse oxygen saturation of the patient was noted as 100% on 55% oxygen prior to intubation and mechanical ventilation noted with BiPAP 98% saturation. [place], [place] REPORT OF CONSULTATION NAME: MONI CRONIN UNIT #: [id number] ROOM: [facility] DOCTOR: DORITA PACK MD,GRANT BIRTHDATE: [birth year] HEENT: The patient is currently intubated. Severely obese. NECK: Very short and obese. CARDIOVASCULAR: S1, S2 audible. LUNGS: The patient was noted with [id number]-rz-[id number] decreased breath sounds in the lungs bilaterally. ABDOMEN: Noted soft severely obese. Bowel sounds present. EXTREMITIES: The patient noted severe ____ of the extremities without any edema. SKIN: Visible skin no lesions or rashes. Dermatitis related to the yeast infection noted in the groins. CENTRAL NERVOUS SYSTEM: Cannot be assessed. It was reported the patient without any focal deficit prior to intubation and mechanical ventilation. MUSCULOSKELETAL: No acute deformities. LABORATORY DATA: The PT, PTT that was done on admission yesterday normal. Lactic acid yesterday 2.0 on admission. CMP of the patient on admission 05/29/2017, BUN 24, creatinine 5.89, glucose 117. Sodium 135. ProBNP was elevated to greater than 26,000. CBC yesterday, WBC count 16.1, hemoglobin and hematocrit were normal. Platelet count was normal. The differential noted with 5% lymphocytes, 90% neutrophils. Urinalysis, the patient was noted with 2+ protein. Troponin first set was noted 0.57, second set was 1.150. The third set for this patient 1.82 is the maximum troponin. CPK noted as normal, MB of 6.5. CMP this morning, BUN 29, creatinine 6.65. Glucose 113, potassium 5.3, CO2 of 20. CBC this morning, WBC count 23.2, hemoglobin 11.9, hematocrit 37.6, platelet count 246,000. Blood cultures 2 out of 2 sets on 05/29/2017 were noted gram-positive cocci in clusters, endotracheal aspirate of the patient this morning, many white blood cells, few epithelial cells with gram-positive cocci in pairs, chains and clusters. The chest x-ray that was done for this patient on admission was noted with pulmonary venous congestion was noted in the lung, limited study because of large body habitus. The chest x-ray this morning, endotracheal tube were noted 5.5 cm by the anton level. The congestive heart failure finding may persistent. There were no gross area of consolidation was noted, however, the assessment remains limited because of the patient's current body habitus and portable chest x-ray. IMPRESSION: 1. The patient who has been currently admitted to the hospital noted with acute severe sepsis related to Gram-positive cocci bacteremia, most likely Staphylococcus aureus with VRE to be excluded in the differential diagnosis. 2. Possibility infection of the Tesio catheter would be considered as the source of infection in origin. 3. Suspected obstructive sleep apnea disorder, recurrent large body habitus as well would be considered with possibility of obesity hypoventilation syndrome with the assessment as well. 4. The patient with end-stage renal failure, hemodialysis regularly for few years. 5. Abnormal troponin, possibility of non-ST segment elevation myocardial infarction to be excluded. 6. The patient with a history of essential hypertension and other medical problem noted previously. [place], [place] REPORT OF CONSULTATION NAME: MONI CRONIN Sakshi UNIT #: [id number] ROOM: [facility] DOCTOR: GRANT COLORADO MD BIRTHDATE: [birth year] PLAN OF TREATMENT: Continue vasopressor to maintain a mean arterial pressure of 65 or greater. The mechanical ventilation for the patient setting essentially remains the same except reducing the oxygen to 50% at this time because saturations noted 100%. Extreme difficulty of obtaining arterial blood gases were noted. The last blood gas was done for the patient this morning 545 hours after previous failed attempt multiple, pH of 7.38, pCO2 of 42, pO2 61.7. Try to obtain another arterial blood gas of the patient to assess the improvement in the oxygenation. Hemodialysis per recommendation of the Nephrology services. Ventilator bundle management the patient will be initiated. The patient will be continued on the vasopressors as well. Nutrition support could be started for this patient as well. Use of the Peridex rinse for this patient as a part of the ventilator bundle management. Usual care. The Zyvox should be able to treat the patient's current bacteremia. Assessment of endocarditis with echocardiogram, especially transesophageal echocardiogram will be considered. Usual care, other supportive plan of therapy and care. Further adjustment in medication based on the arterial blood gases assessment. Total time spent on pulmonary critical care evaluation and management was 35 minutes. GRANT KEVIN MD CM:CONSTR:REPORT OF CONSULTATION 1400 05/31/17 0625 interface
--- NOTE | ~2017-05-29 | PR ---
[place], [place] PROGRESS NOTE NAME: MONI CRONIN [facility] #: [id number] UNIT #: [id number] ROOM: [facility] DOCTOR: DORITA PACK MD,GRANT BIRTHDATE: [birth year] DOS: 05/31/2017 SUBJECTIVE: The patient has been noted comfortable at this time, noted awake. The patient does follow vocal commands. Remains on a mechanical ventilator, intubated. She has not been noted any acute hemodynamic instability. She was planned for transfer to another hospital. The patient presented to [facility] for assessment of endocarditis. Vascular access with history of end-stage renal failure for this patient and other problems. OBJECTIVE: VITAL SIGNS: For the patient which has been recorded showed the temperature remains normal, respiratory 14, heart rate of 64, blood pressure 107/53. Blood pressure remains normal otherwise. The pulse oxygen saturation of the patient noted on 50% oxygen was 100% saturation. HEENT: Examination showed no acute change. NECK: Supple and obese. The patient remains intubated orally. Orogastric tube is in place. CARDIOVASCULAR: S1, S2 is audible. LUNGS: The patient was noted without any crackles, rhonchi, or wheezing at this time. ABDOMEN: Noted severe morbid obesity, bowel sounds present. EXTREMITIES: The patient was noted without any edema. LABORATORY DATA: The cultures of the endotracheal aspirate of the patient from showed normal tyler. Preliminary findings culture results were pending. The Gram stain showed many white blood cells, few epithelial cells, few gram-positive cocci in pairs, chains, and clusters. Other labs could not be drawn because of the difficulty with venous access for the patient and morbid obesity. The patient has been continued on the vasopressor therapy as level for this patient and other antibiotics were continued as previously ordered. The culture of the blood for the patient, which were done for this patient 28, two sets of patient so far, the final results remains pending. Arterial blood gas was not able to be obtained for this patient because of large body habitus and difficult arterial stick. IMPRESSION: 1. The patient who has been currently noted with end-stage renal failure for this patient with acute hypoxic and hypercapnic respiratory failure. 2. Bacteremia for this patient, rule out endocarditis. The patient related to the Tesio catheter used for dialysis. 3. Severe morbid obesity. 4. Suspicion of Pickwickian syndrome and obstructive sleep apnea disorder as well. 5. The patient with hypotension related to the current acute sepsis as well. There were no gross evidence of pneumonia noted on the chest x-ray. The endotracheal tube was yesterday adjusted successfully. PLAN OF MANAGEMENT: The patient has been currently planned for transfer to another facility for further continued workup of the venous access and removal of the Tesio catheter and also to rule out endocarditis. The arrangements has [place], [place] PROGRESS NOTE [facility] [id number] UNIT #: [id number] ROOM: [facility] DOCTOR: GRANT COLORADO MD BIRTHDATE: [birth year] been noted in progress of the patient at this time. Continuation of current mechanical ventilatory support. Liberation from mechanical ventilation assessment [facility]. Diprivan to be given to the patient for the comfort for this patient. Continue other supportive therapy, plan and management and care. Transthoracic echocardiogram has been done for this patient pending results. Post likely, the patient will require transesophageal echocardiogram for patient to definitively exclude the endocarditis. Maintain a mean arterial pressure of 65 or greater. Total time pulmonary critical evaluation and management for this patient was 32 minutes. GRANT KEVIN MD CM:STEPHANIA [id number] GRANT PACK MD 06/01/17 0508 interface
[~2017-05-29 18:04] MED LIST changes: -HYDROCODONE BIT1 T11 PO; -MICARDIS40 M1 PO; +MICARDIS80 MG PO; +NORCO 5-325 TA1 EACH PO; -TUMS SMOOTHIES750 M1 PO; +TUMS300 MG PO
[2017-05-29 18:21] LABS: HEMATOCRIT 43.8 % (37.0-47.0); HEMOGLOBIN 13.5 g/dl (12.0-16.0); MEAN CELL VOLUME 107.6 fl (81.0-99.0); MEAN CORPUSCULAR HGB 33.2 pg (27.0-31.0); MEAN CORPUSCULAR HGB CONC 30.8 g/dl (33.0-37.0); MEAN PLATELET VOLUME 10.6 fl (9.6-12.3); PLATELET COUNT AUTOMATED 295 10*3/uL (130-400); RED BLOOD COUNT 4.07 10*6/uL (4.10-5.10); RED CELL DISTRI WIDTH 14.5 % (0-14.5); WHITE BLOOD COUNT 16.1 10*3/uL (4.8-10.8)
[2017-05-29 18:32] LABS: ACT PARTIAL THROMBO TIME 24.9 SECONDS (20.8-31.5)
[2017-05-29 18:37] LABS: ALBUMIN 3.1 gm/dl (3.1-4.5); CREATININE 5.89 mg/dL (0.55-1.02)
[2017-05-29 18:40] LABS: TROPONIN I 0.02 ng/ml (<0.045)
[2017-05-29 18:41] LABS: PLATELET SUFFICIENCY NORMAL (NORMAL); STOMATOCYTE FEW; TOTAL CELLS COUNTED 100 #CELLS
[2017-05-29 21:04] LABS: BILIRUBIN NEGATIVE (NEGATIVE); BLOOD TRACE-LYSED (NEGATIVE); CLARITY CLEAR (CLEAR); COLOR YELLOW (YELLOW); GLUCOSE TRACE (NEGATIVE); KETONE NEGATIVE (NEGATIVE); LEUKO ESTERASE NEGATIVE (NEGATIVE); NITRITE NEGATIVE (NEGATIVE); SPECIFIC GRAVITY 1.015 (1.005-1.030); UROBILINOGEN 0.2 E.U./dl (0.2-1.0)
[2017-05-29 21:10] LABS: BACTERIA TRACE
[2017-05-29 21:11] LABS: MUCOUS 1+
[2017-05-30] VITALS (89 sets, daily range): BP systolic 72–153; BP diastolic 24–92
[2017-05-30 05:54] LABS: ABG BASE EXCESS 0.1 mmol/L (-2.0-2.0); ABG HCO3 24.6 mmol/l (22-26); ABG O2 SATURATION 90.3 % (95-97); ARTERIAL BLOOD GAS PCO2 42.3 mmHg (35-45); ARTERIAL BLOOD GAS PH 7.384 (7.35-7.45); ARTERIAL BLOOD GAS PO2 61.7 mmHg (80-90)
[2017-05-30 06:50] LABS: HEMOGLOBIN 11.9 g/dl (12.0-16.0); MEAN CORPUSCULAR HGB 32.8 pg (27.0-31.0); MEAN CORPUSCULAR HGB CONC 31.6 g/dl (33.0-37.0); MEAN PLATELET VOLUME 11.2 fl (9.6-12.3); PLATELET COUNT AUTOMATED 246 10*3/uL (130-400); RED BLOOD COUNT 3.63 10*6/uL (4.10-5.10); RED CELL DISTRI WIDTH 14.6 % (0-14.5); WHITE BLOOD COUNT 23.2 10*3/uL (4.8-10.8)
[2017-05-30 06:52] LABS: HEMATOCRIT 37.6 % (37.0-47.0); MEAN CELL VOLUME 103.6 fl (81.0-99.0)
[2017-05-30 06:59] LABS: CKMB 6.5 ng/ml (0.5-3.6); TROPONIN I 1.82 ng/ml (<0.045)
[2017-05-30 07:00] LABS: ALBUMIN 2.5 gm/dl (3.1-4.5); CREATININE 6.65 mg/dL (0.55-1.02); POTASSIUM 5.3 mmol/L (3.5-5.1); TOTAL PROTEIN 6.3 gm/dL (6.4-8.2)
[2017-05-30 07:28] LABS: BASOPHILS 1 % (0-1); PLATELET SUFFICIENCY NORMAL (NORMAL); TOTAL CELLS COUNTED 100 #CELLS
[2017-05-30 09:37] LABS: CKMB 7.7 ng/ml (0.5-3.6); TROPONIN I 1.76 ng/ml (<0.045)
[2017-05-30] MEDS ORDERED: COREG25 MG PO (15:11)
[2017-05-30] MEDS ORDERED: ENBREL50 MG/1 ML SQ (15:15)
[2017-05-31] VITALS (80 sets, daily range): BP systolic 87–176; BP diastolic 40–109
== END 2017-05-31 22:11 | disposition short-term general hospital (02) | DRG 314 ==
LOC: ED 18:04 → EDHOLD 19:09 → ED 19:09 → ICCU 19:09 → EDHOLD 19:28 → ICCU 19:28
PROVIDERS: Emergency Medicine; Internal Medicine Critical Care Medicine; Student in an Organized Health Care Education/Training Program; ADMIT Internal Medicine
PROC: 5A1945Z Respiratory Ventilation, 24-96 Consecutive Hours (ICD-10-PCS; principal; 2017-05-29)
PROC: 0BH17EZ Insertion of Endotracheal Airway into Trachea, Via Natural or Artificial Opening (ICD-10-PCS; principal; 2017-05-29)
PROC: 05JY3ZZ Inspection of Upper Vein, Percutaneous Approach (ICD-10-PCS; 2017-05-29)
PROC: 5A09357 Assistance with Respiratory Ventilation, Less than 24 Consecutive Hours, Continuous Positive Airway Pressure (ICD-10-PCS; 2017-05-29)
DX: T82.7XXA Infection and inflammatory reaction due to other cardiac and vascular devices, implants and grafts, initial encounter (principal); A41.01 Sepsis due to Methicillin susceptible Staphylococcus aureus; N18.6 End stage renal disease; E43 Unspecified severe protein-calorie malnutrition; J96.01 Acute respiratory failure with hypoxia; R65.21 Severe sepsis with septic shock; J96.02 Acute respiratory failure with hypercapnia; I13.2 Hypertensive heart and chronic kidney disease with heart failure and with stage 5 chronic kidney disease, or end stage renal disease; J18.9 Pneumonia, unspecified organism; Z68.42 Body mass index [BMI] 45.0-49.9, adult; Q61.3 Polycystic kidney, unspecified; T80.211A Bloodstream infection due to central venous catheter, initial encounter; I50.9 Heart failure, unspecified; E66.01 Morbid (severe) obesity due to excess calories; I25.10 Atherosclerotic heart disease of native coronary artery without angina pectoris; L40.9 Psoriasis, unspecified; K21.9 Gastro-esophageal reflux disease without esophagitis; E89.2 Postprocedural hypoparathyroidism; E55.9 Vitamin D deficiency, unspecified; G89.29 Other chronic pain; D63.1 Anemia in chronic kidney disease; E87.5 Hyperkalemia; E53.8 Deficiency of other specified B group vitamins; L30.3 Infective dermatitis; Y95 Nosocomial condition; Z99.2 Dependence on renal dialysis; Z88.8 Allergy status to other drugs, medicaments and biological substances; Z88.6 Allergy status to analgesic agent; Z88.1 Allergy status to other antibiotic agents; Z91.041 Radiographic dye allergy status; Z87.01 Personal history of pneumonia (recurrent); Z98.891 History of uterine scar from previous surgery; Z98.61 Coronary angioplasty status; Z82.49 Family history of ischemic heart disease and other diseases of the circulatory system; Z83.3 Family history of diabetes mellitus; Z87.440 Personal history of urinary (tract) infections; Z79.82 Long term (current) use of aspirin; Z79.899 Other long term (current) drug therapy; Y83.8 Other surgical procedures as the cause of abnormal reaction of the patient, or of later complication, without mention of misadventure at the time of the procedure; Y92.89 Other specified places as the place of occurrence of the external cause; Z53.8 Procedure and treatment not carried out for other reasons

== ENCOUNTER 2017-12-03 11:30 | Inpatient (IN) | payer OTHER ==
[~2017-12-03] VITALS: Ht 162.6 cm; Wt 128.8 kg
--- NOTE | ~2017-12-03 | PR ---
[place], [place] PROGRESS NOTE NAME: MONI CRONIN [facility] #: [id number] UNIT #: [id number] ROOM: [facility] DOCTOR: RANJANA GRIFFIN MD BIRTHDATE: [birth year] DOS: 12/05/2017 SUBJECTIVE: She feels fine. She does not have any chest pain, in fact she never had any chest pain. No breathing problem, has not had any palpitations either. Her appetite is fine. She dialyzed 2 days ago. She had some issue with her fistula and temporary catheter was inserted by ____ for dialysis and she is to have work done on peripheral vascular problem of the right leg and is due to see him in 2 days. PHYSICAL EXAMINATION: GENERAL: The patient is very pleasant, alert. She is very obese. VITAL SIGNS: Pulse is 60 and regular, blood pressure 137/53. NECK: JVP difficult to assess, but seems to be okay. EXTREMITIES: There is absolutely no edema of the lower extremities. CARDIAC: Auscultation with no rub or murmur. LUNGS: Auscultation of the lungs reveals modestly reduced breath sounds, very few adventitious sounds in the bases, mainly crackles. LABORATORY DATA: Chest x-ray was done today and I reviewed it. I was not impressed with any significant abnormal findings. IMPRESSION: Mildly elevated troponin I level, reason is not clear. It may be a small non-ST elevation acute myocardial infarction, type 2 infarction is also a possibility as mentioned previously. She is very stable and her volume status appears satisfactory. RANJANA GRIFFIN MD CM:PNTRANS [id number] RANJANA GRIFFIN MD 12/05/17 1029 interface
--- NOTE | ~2017-12-03 | PR ---
[place], [place] PROGRESS NOTE NAME: MONI CRONIN UNIT #: [id number] ROOM: [facility] DOCTOR: DORITA PACK MD,GRANT BIRTHDATE: [birth year] DOS: 12/06/2017 SUBJECTIVE: The patient is noted comfortable at this time without any acute distress. She has not been noted with any symptoms of chest pain or any hemoptysis. The patient's coughing has been improving. Shortness of breath has been decreasing. Denies symptoms of nausea or vomiting. She was planned for transfer to [facility] for further workup of the patient on dialysis catheter, which probably will be removed and will be replaced with a new dialysis catheter. She does have a fistula in place in the right upper extremity, which is not currently used because of infiltration of the fluid with previous dialysis. OBJECTIVE: VITAL SIGNS: Normal temperature, respiratory rate 16, heart rate 57, blood pressure ____. The pulse ox saturation on 1 liter nasal cannula is 96% saturation. HEENT: Head was atraumatic. Eyes nonicterus. NECK: Supple. CARDIOVASCULAR: S1, S2 is audible. LUNGS: The patient was noted without any wheezing or crackles at the present time. Breath sounds are noted mild to moderately decreased bilaterally. ABDOMEN: Soft, severely obese. Bowel sounds present. EXTREMITIES: Without any acute edema. LABORATORY DATA: CBC, WBC count 13.9, hemoglobin 9.4, hematocrit 31.4, platelet count was normal. The BMP of the patient, BUN 76, creatinine 8.14, potassium 5.8. IMAGING STUDIES: Chest x-ray, 2-view which was done yesterday, was reviewed and shows finding of congestive heart failure. IMPRESSION: 1. Acute congestive heart failure with respiratory distress. 2. Acute bacteremia with Staphylococcus aureus, which was noted with current blood cultures taken on admission with additional culture taken on 12/04/2017, noted as no bacterial growth preliminary. 3. Chronic obesity. 4. Allergy to multiple antibiotics. PLAN OF TREATMENT: The patient could be transferred to another facility for further workup of the patient. Medical management of current bacteremia. Usual care. Continue antibiotic of the patient per recommendation of Infectious disease specialist. [place], [place] PROGRESS NOTE NAME: PALMA CRONINJORIDamon Cantor UNIT #: [id number] ROOM: [facility] DOCTOR: GRANT COLORADO MD BIRTHDATE: [birth year] GRANT KEVIN MD CM:PNCAROL [id number] GRANT PACK MD 12/07/17 0033 interface
--- NOTE | ~2017-12-03 | CON ---
[place], [place] REPORT OF CONSULTATION NAME: MONI CRONIN [facility] #: [id number] UNIT #: [id number] ROOM: [facility] DOCTOR: DORITA PACK MD,GRANT BIRTHDATE: [birth year] DOS: 12/04/2017 PULMONARY CONSULTATION, EVALUATION, AND MANAGEMENT CONSULTATION REQUESTED BY: Shawn Prince MD. REASON FOR CONSULTATION: To assess the patient's current acute severe hypoxic respiratory failure. HISTORY OF PRESENT ILLNESS: This is a 56-year-old white female patient with longstanding history of hemodialysis several years ago. The patient presented and admitted to the hospital on 12/03/2017. She has been given routine hemodialysis yesterday in the Dialysis Clinic. The patient went home and developed symptoms of severe fever and chills with shortness of breath, which were noted rapidly progressive. The patient came to the Emergency Room for further assessment of current symptoms. She was noted temperature of 102 degrees Fahrenheit. The patient was also noted severe acute hypoxia with pulse ox saturation about 67%. She was started on 100% nonrebreather mask with improvement in the oxygen saturation noted. She was transferred to the Intensive Care Unit, where she has been ordered the BiPAP, which is used by the patient since last night. The patient currently noted awake and alert with shortness of breath. Shortness of breath has been improving. The fever was also noted decreased. Cough has been noted [id number] without any sputum expectoration as per the patient. Denies symptoms of hemoptysis. REVIEW OF SYSTEMS: Remaining systems were reviewed with the patient and they were noted all negative. PAST MEDICAL HISTORY: 1. Acute respiratory failure, requiring intubation, mechanical ventilation, and hypertension and others in 05/2018. 2. End-stage renal failure, on hemodialysis. Hemodialysis received by the patient for end-stage renal failure on Wednesday, Wednesday, and Fridays. 3. Severe morbid obesity. 4. History of congestive heart failure, diastolic dysfunction. 5. Anemia related to chronic kidney disease. 6. Gastroesophageal reflux. 7. Essential hypertension. 8. Hyperparathyroidism secondary to end-stage renal failure. 9. History of protein-calorie malnutrition. 10. Polycystic kidney disease. 11. History of psoriasis. 12. Yeast dermatitis. PAST SURGICAL HISTORY: 1. Fistula formation creation on the right upper extremity. 2. Current temporary dialysis catheter in place since the fistula was not used because of the infiltration recently. 3. Cardiac catheterization. 4. . [place], [place] REPORT OF CONSULTATION NAME: MONI CRONIN [facility] #: [id number] UNIT #: [id number] ROOM: [facility] DOCTOR: DORITA PACK MD,GRANT BIRTHDATE: [birth year] 5. Hernia repair. 6. Parathyroidectomy. 7. Catheterization and coronary stents insertion. SOCIAL HISTORY: The patient is currently noted , lives at home. Tobacco use since teenager, pack of cigarettes per day until 2007. FAMILY HISTORY: Noted noncontributory. MEDICATIONS: Current medications administered noted as use of Solu-Medrol 40 mg b.i.d., Plavix 75 mg daily, aspirin, losartan, Coreg, DuoNeb q.4 hours, IV doxycycline, and other p.r.n. medications. ALLERGIES: THE DRUG ALLERGIES FOR THE PATIENT WERE NOTED : 1. IVP DYE. 2. CODEINE. 3. PERCOCET. 4. HOMATROPINE. 5. METHOTREXATE. 6. CIPROFLOXACIN. 7. AMOXICILLIN. 8. PREVACID. 9. CARDIZEM. 10. WELLBUTRIN. 11. MEPERIDINE. 12. VANCOMYCIN. 13. SENSIPAR. 14. NEXIUM. PHYSICAL EXAMINATION: GENERAL: This is a 56-year-old white female, currently sitting on the chair in her room at this time without acute distress. Height of 5 feet 4 inches, weight of 248 pounds, and BMI 48.7. VITAL SIGNS: Temperature noted 102.6 degree Fahrenheit, respiratory rate 35, heart rate of 97, blood pressure ____ on admission. Vital signs this morning, temperature normal, respiratory rate 14, heart rate 54, and blood pressure 116/56. Pulse oxygen saturation noted as on 4 liters nasal cannula 99% saturation this morning. HEENT: On examination, moderate obesity. Head was atraumatic. Eyes nonicterus. NECK: Supple. CARDIOVASCULAR: S1, S2 audible. LUNGS: Noted crackles. The lungs were noted without any wheezing at the present time. ABDOMEN: Soft, nontender. Bowel sounds present. MUSCULOSKELETAL: The patient noted without any acute deformities. CENTRAL NERVOUS SYSTEM: Cranial nerves 2-12 intact. VISIBLE SKIN: No lesions or rashes. LABORATORY DATA: The arterial blood gas that was done yesterday, pH of 7.37, [place], [place] REPORT OF CON[facility]ULTATION [id number] UNIT #: [id number] ROOM: [facility] DOCTOR: DORITA PACK MD,GRANT BIRTHDATE: [birth year] pCO2 53, and pO2 48 on 50% oxygen. Troponin noted 1.60 yesterday. CMP of the patient that was done on 12/03/2017, glucose 146, BUN 16, and creatinine 3.5. Troponin first set was 0.46, the second set noted 1.63. PTT was noted normal yesterday. CBC of the patient, WBC count 14.7, hemoglobin 9.7, hematocrit 31.5, and platelet count 270,000. CMP of the patient that was done this morning, BUN 26, creatinine 4.89, and glucose 161. Albumin of 2.5. TSH was 0.192. PT and INR noted normal. Blood culture taken yesterday gram-positive cocci in cluster in 1/2 bottles, the other two bottles with aerobic and anaerobic both showing gram-positive cocci in clusters. The chest x-ray, which was done yesterday one view was noted with cardiomegaly. Dialysis catheter noted in place in the left chest. Small perihilar infiltration as well as in the left lingula would be considered. Increased pulmonary venous congestion marking was also noted. IMPRESSION: 1. The patient who has been currently admitted to the hospital noted with acute sepsis with gram-positive cocci bacteremia note overwhelming, possible pneumonia of the left lung cannot be completely excluded. 2. The patient with acute hypoxic respiratory failure secondary to sepsis and pulmonary venous congestion secondary to acute infection. 3. Multiple allergy noted to antibiotic and many medications limiting the use of the appropriate medication for current bacteremia management. Source of bacteremia could be considered with current dialysis catheter because of the multiple positive blood cultures from admission. 4. Possibility of non-ST segment elevation myocardial infarction to be excluded as well. 5. The patient with severe morbid obesity with this clinical suspicion of obstructive sleep apnea disorder. 6. End-stage renal failure, long-term, on hemodialysis, 3 times a week, every Wednesday, Wednesday, and Wednesday. 7. Possible exacerbation of chronic obstructive pulmonary disease would be considered as well. PLAN OF MANAGEMENT: The patient has been started on Solu-Medrol 40 mg b.i.d. to be continued with gradual reduction from the other dose. Titrate oxygen to maintain pulse ox 90% or greater. BiPAP could be used in case of worsening hypoxia. The patient noted comfortably, not required the use of the BiPAP continued need. ID consultation to be done to appropriately administer the antibiotic. Strong consideration should be given for removal of the dialysis catheter and placement of new dialysis catheter with current bacteremia with the decision finding to be made by the Infectious Disease specialist. At this time, possible pneumonia cannot be excluded. Obtain a PA and lateral chest x-ray of the patient tomorrow morning to reassess the progression of the chronic pulmonary infiltration if the infiltrate ____ pneumonia to be considered less likely. Bronchodilators to be continued. Further reduction of the steroids to be done most likely tomorrow and discontinuation in the next few days would be considered. Outpatient assessment to be done if the patient will be able for sleep apnea disorder in future as well. Thanks for allowing me to participate in the care of this patient. [place], [place] REPORT OF CONSULTATION NAME: MONI CRONIN Sakshi UNIT #: [id number] ROOM: [facility] DOCTOR: GRANT COLORADO MD BIRTHDATE: [birth year] GRANT KEVIN MD CM:CONSTR:REPORT OF CONSULTATION 45 12/05/17 0556 interface
--- NOTE | ~2017-12-03 | CON ---
[place], [place] REPORT OF CONSULTATION NAME: MONI CRONIN [facility] #: [id number] UNIT #: [id number] ROOM: [facility] DOCTOR: RANJANA GRIFFIN MD BIRTHDATE: [birth year] DOS: 12/04/2017 HISTORY OF PRESENT ILLNESS: This is a 56-year-old -[place] woman with a history of coronary artery disease and coronary stents. She had a diagnostic heart catheterization done in December of last year. She had an EF of 60%, 20% stenosis in RCA, no stenosis in the circumflex artery, but had 80% stenosis in the ostial of a large diagonal branch and 50% stenosis in the proximal LAD and 80% in the distal left anterior descending artery. A 2.25 x 16 mm stent was deployed in the large diagonal branch and 2.25 x 16 mm drug-eluting stent was deployed in the distal left anterior descending artery. She had a transesophageal echocardiogram done in April of last year for suspicion of endocarditis. The valves were essentially normal and LV ejection fraction 55-60%. She also has end-stage renal disease and has been dialyzing for quite a long time. She has had flash pulmonary edema in the remote past, GERD, essential hypertension, hypoparathyroidism, morbid obesity, polycystic kidney disease, psoriasis. She has had umbilical herniorrhaphy, parathyroidectomy and had AV fistula, which has not been working and has been a left subclavian dialysis catheter now. She dialyzed yesterday and while there, she had developed a fever and was shivering. She went home and had more shivering and came to the emergency department. Her temperature was over 101 degrees Fahrenheit. She did not have any sweating, palpitation, chest pain, pressure, a little shortness of breath, but no abdominal pain or any urinary symptoms. I was asked to see her because her troponin level was 1.63 initially and then jordana to 2.17. MEDICATIONS: Reviewed. She is on aspirin, clopidogrel, carvedilol, Micardis. PHYSICAL EXAMINATION: GENERAL: The patient who is morbidly obese. She is alert, oriented. She is afebrile. Complexion is little pale. There is no finger clubbing. VITAL SIGNS: Pulse is 64 and regular, blood pressure 122/57. NECK: JVP is normal, no bruit in the neck. CARDIOVASCULAR: Cardiac auscultation reveals a 1-2/6 systolic murmur over the pulmonic area. No rub was present. No edema. EXTREMITIES: Lower extremities, pedal pulses are palpable. RESPIRATORY: Breath sounds are diminished with no adventitious sounds are present. DIAGNOSTIC STUDIES: Chest x-ray was ____ difficult to interpret. IMPRESSION: This patient with known coronary artery disease, has mildly increased troponin I level, but she has not had any cardiac symptoms whatsoever. She may have had a small non-Q-wave myocardial infarction; however, type 2 myocardial infarction, supply demand imbalance may be responsible for this as well. RECOMMENDATIONS: She has had heparin for about 24 hours. I think this can be [place], [place] REPORT OF CONSULTATION NAME: [facility]ANNEMONI Sakshi [id number] UN[facility] #: [id number] ROOM: [facility] DOCTOR: RANJANA GRIFFIN MD BIRTHDATE: [birth year] discontinued, aspirin, clopidogrel, and beta deana should be continued. An echocardiogram should be performed to asses for any regional wall motion abnormality. For the time being, I think we can defer any cardiac catheterization. I thank you for this consult. RANJANA GRIFFIN MD CM:CONSTR:REPORT OF CONSULTATION 1003 12/05/17 0047 interface
--- NOTE | ~2017-12-03 | PR ---
[place], [place] PROGRESS NOTE NAME: MONI CRONIN UNIT #: [id number] ROOM: [facility] DOCTOR: CHIN HATCH MD BIRTHDATE: [birth year] DOS: 12/05/2017 SUBJECTIVE: The patient was seen and examined. She is awake and alert. She states she feels a little bit better. She is complaining of some discomfort in her chest. She was on nasal cannula, not in any acute distress. PHYSICAL EXAMINATION: VITAL SIGNS: Showed temperature 98.2, pulse 61, respiration rate 16, blood pressure 160/60. HEENT: Shows no JVD. LUNGS: Diminished breath sounds. No wheeze. HEART: Normal S1, S2. No rub, thrill or gallop. ABDOMEN: Soft, nontender. There is organomegaly. EXTREMITIES: Showed no lower extremity edema. LABORATORY DATA: Reviewed. Blood cultures are noted to be positive for gram-positive cocci in clusters in a number of bottles. There is no chemistry or CBC today. ASSESSMENT AND PLAN: 1. End-stage renal disease on hemodialysis Wednesday, Wednesday, Wednesday. The patient will be for dialysis tomorrow. She has a tunneled dialysis catheter. She has an AV fistula; however, it has not been cannulated recently due to recent infiltration and hematoma. 2. Bacteremia concerning for MRSA. The patient will need her tunneled dialysis catheter removed. She is on antibiotics as per the Infectious Disease Service. As mentioned, she has an AV fistula that is not being used currently. We will plan to use her catheter tomorrow. I did discuss with the patient the possibility of trying her fistula tomorrow. The patient does not want anything to be done without her surgeon from [place] being notified. I told her dialysis catheter will need to come out, no matter what. We will reassess the situation tomorrow and the possibility of transfer to another facility is possible as she does not want her catheter removed by a surgeon here at [place]. 3. Hypertension. Continue medications. 4. Anemia. We will give as needed erythropoietin stimulating agents with dialysis. [place], [place] PROGRESS NOTE NAME: MONI CRONIN UNIT #: [id number] ROOM: [facility] DOCTOR: CHIN HATCH MD BIRTHDATE: [birth year] CHIN HATCH MD CM:PNTRANS [id number] CHIN HATCH MD 12/05/17 1805 interface
--- NOTE | ~2017-12-03 | PR ---
[place], [place] PROGRESS NOTE NAME: MONI CRONIN [facility] #: [id number] UNIT #: [id number] ROOM: [facility] DOCTOR: RANJANA GRIFFIN MD BIRTHDATE: [birth year] DOS: 12/06/2017 SUBJECTIVE: She is very comfortable in bed. She is not tachypneic, but has oxygen on. No chest pain, palpitation or any pain in the leg. She has no nausea. She dialyzed today and tolerated well. OBJECTIVE: VITAL SIGNS: Pulse is regular at 80 beats per minute, blood pressure 170/80, previous blood pressure was mildly elevated. NECK: JVP is normal. LUNGS: Clear to auscultation, although breath sounds are diminished. EXTREMITIES: There is no edema in the lower extremities and feet are warm. LABORATORY DATA: Monitor shows normal sinus rhythm. IMPRESSION: 1. This patient has coronary artery disease and had a troponin level of 2, which was either from a small myocardial infarction or type 2 myocardial infarction. She is asymptomatic and I do not think we need to do a heart catheterization on this patient, unless she displays some other symptoms. 2. End-stage renal disease. She is euvolemic. 3. Peripheral vascular disease. She is to undergo a procedure of the right lower extremity with Dr. Green. RANJANA GRIFFIN MD CM:PNTRANS 28 RANJAAN GRIFFIN MD 12/06/171927 interface
--- NOTE | ~2017-12-03 | PR ---
[place], [place] PROGRESS NOTE [id number] #: [id number] ROOM: [facility] DOCTOR: CHIN HATCH MD BIRTHDATE: [birth year] DOS: SUBJECTIVE: The patient was seen and examined. She is awake, alert in the ICU. She is on nasal cannula. She states she feels better. She did have dialysis yesterday. It seems she has received some antibiotics for questionable pneumonia. Blood cultures were drawn, which showed high-grade bacteremia with Gram-positive cocci in clusters concerning for MRSA. She denies any nausea or vomiting presently. PHYSICAL EXAMINATION: VITAL SIGNS: Temperature 97.5, pulse 63, respiratory rate 14, blood pressure 169/56. HEENT: Shows no JVD. LUNGS: Diminished breath sounds. No wheeze. HEART: Normal S1, S2. No rub, thrill or gallop. ABDOMEN: Soft, nontender. There is no organomegaly. EXTREMITIES: No lower extremity edema. SKIN: Showed no rash. LABORATORY DATA: BUN 26, creatinine 4.9, sodium 137, potassium 4.8, CO2 of 28, phosphorus 5.5, magnesium 2.5. Hemoglobin 9.6, white count 11.9, platelets 238. Did note a troponin I that was elevated 2.170. ASSESSMENT AND PLAN: 1. End-stage renal disease on hemodialysis Wednesday, Wednesday, Wednesday. 2. Bacteremia concerning for MRSA. The likely source is her tunneled dialysis catheter. The patient will need her tunneled dialysis catheter removed. Continue antibiotics and would continue MRSA coverage. I discussed with the patient that she is going to need her dialysis catheter taken out. The patient does have an AV fistula that has been used, but per her vascular surgeon was told to give it a break for now. The patient tells me she wants to be transferred to [place] to have her surgeon remove her dialysis catheter and reassess her dialysis access. This will need to be discussed with the primary service and from a renal standpoint, this is acceptable. 3. Hypertension. Stable on medications. 4. Anemia. We will give as needed erythropoietin stimulating agents with dialysis. [place], [place] PROGRESS NOTE NAME: PALMA CRONINJORIDamon Cantor UNIT #: [id number] ROOM: [facility] DOCTOR: HOLDEN TOTH,CHIN Merino BIRTHDATE: [birth year] CHIN HATCH MD CM:PNTRANS [phone] [id number] CHIN HATCH MD 12/04/17 1705 interface
[~2017-12-03 11:30] MED LIST changes: +ENBREL50 MG/1 ML SQ
[2017-12-03 11:49] VITALS: BP 153/102
[2017-12-03 12:25] LABS: BASO % 0.1 % (0.0-1.0); EOS # 0.1 10*3/uL (0.0-0.4); EOS % 0.5 % (1.0-4.0); HEMATOCRIT 31.5 % (37.0-47.0); HEMOGLOBIN 9.7 g/dl (12.0-16.0); LYMPH # 0.3 10*3/uL (1.3-4.4); LYMPH % 2.2 % (27.0-41.0); MEAN CELL VOLUME 105.7 fl (81.0-99.0); MEAN CORPUSCULAR HGB 32.6 pg (27.0-31.0); MEAN CORPUSCULAR HGB CONC 30.8 g/dl (33.0-37.0); MEAN PLATELET VOLUME 10.8 fl (9.6-12.3); MONO # 1.1 10*3/uL (0.1-1.0); MONO % 7.7 % (3.0-9.0); NEUT % 88.8 % (47.0-73.0); PLATELET COUNT AUTOMATED 270 10*3/uL (130-400); RED BLOOD COUNT 2.98 10*6/uL (4.10-5.10); WHITE BLOOD COUNT 14.7 10*3/uL (4.8-10.8)
[2017-12-03 12:44] LABS: ACT PARTIAL THROMBO TIME 29.5 SECONDS (20.8-31.5)
[2017-12-03 12:48] LABS: CREATININE 3.51 mg/dL (0.55-1.02); POTASSIUM 4.1 mmol/L (3.5-5.1); TOTAL PROTEIN 6.8 gm/dL (6.4-8.2)
[2017-12-03 12:52] LABS: TROPONIN I 0.046 ng/ml (<0.045)
[2017-12-03 13:00] VITALS: BP 171/67
[2017-12-03 14:13] VITALS: BP 150/74
[2017-12-03 14:30] VITALS: BP 114/55
[2017-12-03] MEDS ORDERED: ENBREL50 MG/1 M1 SQ (14:59)
[2017-12-03 15:43] LABS: ABG BASE EXCESS 4.4 mmol/L (-2.0-2.0); ABG O2 SATURATION 76.1 % (95-97); ARTERIAL BLOOD GAS PCO2 53.7 mmHg (35-45); ARTERIAL BLOOD GAS PH 7.37 (7.35-7.45); ARTERIAL BLOOD GAS PO2 48.5 mmHg (80-90)
[2017-12-03 16:00] VITALS: BP 138/80
[2017-12-03 20:00] VITALS: BP 150/62
[2017-12-04] VITALS: BP 148/65
[2017-12-04 04:00] VITALS: BP 122/57
[2017-12-04 05:19] LABS: HEMATOCRIT 32.6 % (37.0-47.0); HEMOGLOBIN 9.6 g/dl (12.0-16.0); MEAN CORPUSCULAR HGB 32.1 pg (27.0-31.0); MEAN CORPUSCULAR HGB CONC 29.4 g/dl (33.0-37.0); MEAN PLATELET VOLUME 11.5 fl (9.6-12.3); PLATELET COUNT AUTOMATED 238 10*3/uL (130-400); RED BLOOD COUNT 2.99 10*6/uL (4.10-5.10); WHITE BLOOD COUNT 11.9 10*3/uL (4.8-10.8)
[2017-12-04 05:39] LABS: ALBUMIN 2.8 gm/dl (3.1-4.5); CREATININE 4.89 mg/dL (0.55-1.02); PHOSPHOROUS 5.5 mg/dL (2.5-4.9); POTASSIUM 4.8 mmol/L (3.5-5.1); TOTAL PROTEIN 6.6 gm/dL (6.4-8.2)
[2017-12-04 05:44] LABS: THYROID STIM HORMONE (HS) 0.192 uIU/ml (0.358-4.75)
[2017-12-04 07:06] LABS: ATYPICAL LYMPHS 1 % (0-0); PLATELET SUFFICIENCY NORMAL (NORMAL); TOTAL CELLS COUNTED 100 #CELLS
[2017-12-04 08:00] VITALS: BP 169/56
[2017-12-04 08:02] LABS: BILIRUBIN NEGATIVE (NEGATIVE); BLOOD TRACE-LYSED (NEGATIVE); CLARITY SL CLOUDY (CLEAR); COLOR YELLOW (YELLOW); GLUCOSE 1+ (NEGATIVE); KETONE NEGATIVE (NEGATIVE); LEUKO ESTERASE NEGATIVE (NEGATIVE); NITRITE NEGATIVE (NEGATIVE); SPECIFIC GRAVITY <= 1.005 (1.005-1.030); UROBILINOGEN 0.2 E.U./dl (0.2-1.0)
[2017-12-04 08:37] LABS: BACTERIA 2+
[2017-12-04 16:00] VITALS: BP 139/43
[2017-12-04 20:00] VITALS: BP 154/50
[2017-12-05] VITALS: BP 158/53
[2017-12-05 04:02] VITALS: BP 165/70
[2017-12-05 08:00] VITALS: BP 137/53
[2017-12-05 12:00] VITALS: BP 160/60
[2017-12-05 16:00] VITALS: BP 146/46
[2017-12-05 20:00] VITALS: BP 155/76
[2017-12-06] VITALS: BP 163/62
[2017-12-06 04:00] VITALS: BP 149/44
[2017-12-06 06:59] LABS: HEMATOCRIT 31.4 % (37.0-47.0); HEMOGLOBIN 9.4 g/dl (12.0-16.0); MEAN CELL VOLUME 108.7 fl (81.0-99.0); MEAN CORPUSCULAR HGB 32.5 pg (27.0-31.0); MEAN CORPUSCULAR HGB CONC 29.9 g/dl (33.0-37.0); MEAN PLATELET VOLUME 11.6 fl (9.6-12.3); NUCLEATED RED BLOOD CELL 0.1 10*3/uL (0.0-0.0); NUCLEATED RED BLOOD CELL 0.4 % (0.0-0.0); PLATELET COUNT AUTOMATED 263 10*3/uL (130-400); RED BLOOD COUNT 2.89 10*6/uL (4.10-5.10); RED CELL DISTRI WIDTH 13.9 % (0-14.5); WHITE BLOOD COUNT 13.9 10*3/uL (4.8-10.8)
[2017-12-06 07:15] LABS: ALBUMIN 2.8 gm/dl (3.1-4.5); CREATININE 8.14 mg/dL (0.55-1.02); PHOSPHOROUS 6.2 mg/dL (2.5-4.9); POTASSIUM 5.9 mmol/L (3.5-5.1)
[2017-12-06 07:34] LABS: PLATELET SUFFICIENCY NORMAL (NORMAL); POLYCHROMASIA SLIGHT; TOTAL CELLS COUNTED 100 #CELLS
[2017-12-06 08:00] VITALS: BP 175/79
[2017-12-06 12:00] VITALS: BP 142/107
[2017-12-06 16:00] VITALS: BP 171/83
[2017-12-06 20:00] VITALS: BP 145/81
== END 2017-12-06 23:05 | disposition short-term general hospital (02) | DRG 280 ==
LOC: ED 11:30 → ICCU 13:09 → EDHOLD 13:09 → ICCU 13:18
PROVIDERS: Internal Medicine; Internal Medicine Critical Care Medicine; Nurse Practitioner Family; Student in an Organized Health Care Education/Training Program
PROC: 5A1D70Z Performance of Urinary Filtration, Intermittent, Less than 6 Hours Per Day (ICD-10-PCS; 2017-12-03)
PROC: 5A1D70Z Performance of Urinary Filtration, Intermittent, Less than 6 Hours Per Day (ICD-10-PCS; principal; 2017-12-06)
DX: T82.838A Hemorrhage due to vascular prosthetic devices, implants and grafts, initial encounter (principal); A41.89 Other specified sepsis; I21.A1 Myocardial infarction type 2; J96.01 Acute respiratory failure with hypoxia; J18.9 Pneumonia, unspecified organism; E44.0 Moderate protein-calorie malnutrition; I13.2 Hypertensive heart and chronic kidney disease with heart failure and with stage 5 chronic kidney disease, or end stage renal disease; J90 Pleural effusion, not elsewhere classified; I50.31 Acute diastolic (congestive) heart failure; R65.20 Severe sepsis without septic shock; N18.6 End stage renal disease; Q61.3 Polycystic kidney, unspecified; Z68.42 Body mass index [BMI] 45.0-49.9, adult; T80.219A Unspecified infection due to central venous catheter, initial encounter; D72.825 Bandemia; I25.10 Atherosclerotic heart disease of native coronary artery without angina pectoris; D72.810 Lymphocytopenia; D75.89 Other specified diseases of blood and blood-forming organs; D53.9 Nutritional anemia, unspecified; R53.81 Other malaise; R74.8 Abnormal levels of other serum enzymes; R73.9 Hyperglycemia, unspecified; E20.9 Hypoparathyroidism, unspecified; B95.61 Methicillin susceptible Staphylococcus aureus infection as the cause of diseases classified elsewhere; I73.9 Peripheral vascular disease, unspecified; E66.01 Morbid (severe) obesity due to excess calories; K21.9 Gastro-esophageal reflux disease without esophagitis; L40.9 Psoriasis, unspecified; D63.1 Anemia in chronic kidney disease; Z99.2 Dependence on renal dialysis; L98.8 Other specified disorders of the skin and subcutaneous tissue; R80.9 Proteinuria, unspecified; E53.8 Deficiency of other specified B group vitamins; E55.9 Vitamin D deficiency, unspecified; Z95.5 Presence of coronary angioplasty implant and graft; Z82.49 Family history of ischemic heart disease and other diseases of the circulatory system; Z83.3 Family history of diabetes mellitus; Z84.1 Family history of disorders of kidney and ureter; Z88.8 Allergy status to other drugs, medicaments and biological substances; Z88.6 Allergy status to analgesic agent; Z88.1 Allergy status to other antibiotic agents; Z91.041 Radiographic dye allergy status; Z79.82 Long term (current) use of aspirin; Z79.899 Other long term (current) drug therapy; Y84.1 Kidney dialysis as the cause of abnormal reaction of the patient, or of later complication, without mention of misadventure at the time of the procedure; Y92.89 Other specified places as the place of occurrence of the external cause

== ENCOUNTER → 2018-02-17 | Outpatient (CLI) | payer OTHER ==
[~2018-02-17] MED LIST changes: +ENBREL50 MG/1 M1 SQ; +PEPCID40 MG PO
== END | disposition home or self-care (01) ==
LOC: CARD 02:54
DX: R06.02 Shortness of breath (principal); I25.10 Atherosclerotic heart disease of native coronary artery without angina pectoris; R53.81 Other malaise

== ENCOUNTER 2018-09-05 18:12 | Emergency (ER) | payer OTHER ==
--- NOTE | ~2018-09-05 | EKG ---
[place], [place] ELECTROCARDIOGRAM REPORT NAME: MONI CRONIN UNIT #: [id number] ROOM: DOCTOR: EPIPHANY DRAFT REPORT BIRTHDATE: [birth year] [facility] Test Date: 2018-09-05 Test Time: 18:58:26 Pat Name: MONI CRONIN Department: Room: Gender: F Email Designer: Franca Pennington : 1960 Requested By: CRISTAL GELLER PA-C Order Number: [id number] Reading MD: Heber Retana MD Measurements Intervals [place] Rate: 67 P: 70 RI: 149 QRS: 66 QRSD: 89 T: 136 QT: 437 QTc: 462 Interpretive Statements Sinus rhythm Abnormal T, consider ischemia, lateral leads Compared to ECG 07/07/2018 01:38:53 T-wave abnormality now present in I and aVL- possible ischemia Possible ischemia now present Electronically Signed On 09-07-2018 8:21:25 PST by Heber Retana MD CM:EKGRPT:ELECTROCARDIOGRAM REPORT [id number] CRISTAL GELLER PA-C EPIPHANY DRAFT REPORT CRISTAL GELLER PA-C
[~2018-09-05 18:12] MED LIST changes: +CALPHRON667 MG PO; +DOXYCYCLINE MO100 M1 PO
[2018-09-05 19:09] LABS: BASO % 0.1 % (0.0-1.0); EOS # 0.4 10*3/uL (0.0-0.4); EOS % 6.1 % (1.0-4.0); HEMATOCRIT 38.4 % (37.0-47.0); HEMOGLOBIN 11.5 g/dl (12.0-16.0); LYMPH # 1.2 10*3/uL (1.3-4.4); LYMPH % 17.8 % (27.0-41.0); MEAN CELL VOLUME 104.6 fl (81.0-99.0); MEAN CORPUSCULAR HGB 31.3 pg (27.0-31.0); MEAN CORPUSCULAR HGB CONC 29.9 g/dl (33.0-37.0); MEAN PLATELET VOLUME 11.1 fl (9.6-12.3); MONO # 0.6 10*3/uL (0.1-1.0); NEUT # 4.6 10*3/uL (2.3-7.9); NEUT % 66.7 % (47.0-73.0); PLATELET COUNT AUTOMATED 257 10*3/uL (130-400); RED BLOOD COUNT 3.67 10*6/uL (4.10-5.10); RED CELL DISTRI WIDTH 14.5 % (0-14.5); WHITE BLOOD COUNT 6.9 10*3/uL (4.8-10.8)
[2018-09-05 19:27] LABS: ALBUMIN 2.6 gm/dl (3.1-4.5); CREATININE 5.01 mg/dL (0.55-1.02); POTASSIUM 4.6 mmol/L (3.5-5.1); TOTAL PROTEIN 7.1 gm/dL (6.4-8.2); TROPONIN I 0.022 ng/ml (<0.045)
[2018-09-05] MEDS ORDERED: NORCO 5-325 TA1 EACH PO (21:29)
[2019-02-02] MEDS ORDERED: DOXYCYCLINE100 M3 PO (12:10)
== END 2018-09-05 21:55 | disposition home or self-care (01) ==
LOC: ED 18:12
PROVIDERS: Physician Assistant
DX: M25.512 Pain in left shoulder (principal); R07.89 Other chest pain; M10.9 Gout, unspecified; I25.10 Atherosclerotic heart disease of native coronary artery without angina pectoris; Z79.899 Other long term (current) drug therapy; Z79.82 Long term (current) use of aspirin; Z88.1 Allergy status to other antibiotic agents; Z88.6 Allergy status to analgesic agent; Z88.8 Allergy status to other drugs, medicaments and biological substances; Z91.041 Radiographic dye allergy status; X58.XXXA Exposure to other specified factors, initial encounter; Y93.89 Activity, other specified; Y92.89 Other specified places as the place of occurrence of the external cause; Y99.8 Other external cause status

== ENCOUNTER 2019-05-07 15:25 | Inpatient (IN) | payer OTHER ==
[~2019-05-07] VITALS: Ht 162.5 cm; Wt 123.0 kg
[~2019-05-07 15:25] MED LIST changes: +DOXYCYCLINE100 M3 PO
[2019-05-07 15:29] VITALS: BP 150/73
[2019-05-07 15:53] VITALS: BP 161/69
[2019-05-07 16:40] LABS: BASO % 0.1 % (0.0-1.0); EOS # 0.3 10*3/uL (0.0-0.4); EOS % 3.9 % (1.0-4.0); HEMATOCRIT 37.5 % (37.0-47.0); HEMOGLOBIN 11.5 g/dl (12.0-16.0); LYMPH # 1.2 10*3/uL (1.3-4.4); LYMPH % 15.4 % (27.0-41.0); MEAN CELL VOLUME 106.2 fl (81.0-99.0); MEAN CORPUSCULAR HGB 32.6 pg (27.0-31.0); MEAN CORPUSCULAR HGB CONC 30.7 g/dl (33.0-37.0); MEAN PLATELET VOLUME 11.2 fl (9.6-12.3); MONO # 0.7 10*3/uL (0.1-1.0); NEUT # 5.3 10*3/uL (2.3-7.9); NEUT % 71.3 % (47.0-73.0); PLATELET COUNT AUTOMATED 271 10*3/uL (130-400); RED BLOOD COUNT 3.53 10*6/uL (4.10-5.10); RED CELL DISTRI WIDTH 13.7 % (0-14.5); WHITE BLOOD COUNT 7.5 10*3/uL (4.8-10.8)
[2019-05-07 16:50] LABS: ACT PARTIAL THROMBO TIME 27.9 SECONDS (20.0-32.1); INTERNATIONAL NORM RATIO 0.9 (2.0-3.5)
[2019-05-07 16:57] LABS: ALKALINE PHOSPHATASE 121 U/L (45-117); BUN 53 mg/dl (7-24); CHLORIDE 98 mmol/L (98-107); CREATININE 8.31 mg/dL (0.55-1.02); POTASSIUM 4.7 mmol/L (3.5-5.1); SGOT/AST 12 IU/L (3-35); SGPT/ALT 13 U/L (12-78); SODIUM 141 mmol/L (136-145); TOTAL PROTEIN 6.7 gm/dL (6.4-8.2)
[2019-05-07 16:59] LABS: TROPONIN I < 0.015 ng/ml (<0.045)
[2019-05-07 17:24] VITALS: BP 143/42
--- NOTE | 2019-05-07 17:26 | NUR ---
THE PT DENIES ANY WOUNDS TO HER BODY. SHE DOES HAVE PSORIASIS TO NUMBEROUS SITES ON HER BODY.
--- NOTE | 2019-05-07 17:50 | NUR ---
THIS NURSE CALLED THE RX FOR THE MED
--- NOTE | 2019-05-07 18:51 | NUR ---
A 58, admitted to 4E, under the services of EVA Pendleton MD with a diagnosis of CHF, GENERALIZED WEAKNESS, END STAGE KINDEY DISEASE. . Chief complaint is COUGH, SPUTUN. Patient arrived via ambulatory from ER. Monitor applied. Initial assessment completed. Vital signs taken and recorded. EVA PENDLETON MD notified of admission to the unit. Orders received. See assessment for past medical history, medications and allergies. Patient and/or family oriented to unit. [facility] visitation policy reviewed. Clothing/patient valuable form completed. ROGER BRANTLEY
[2019-05-07 18:54] VITALS: BP 155/95
--- NOTE | 2019-05-07 19:50 | NUR ---
DR LAST ANSWERING SERVICE NOTIFIED OF CONSULT.
--- NOTE | 2019-05-07 19:55 | NUR ---
DR LAST CALLED IN AND UPDATED ON PT. NO NEW ORDERS AT THIS TIME AND STATES WILL SEE PT TOMORROW.
[2019-05-07 20:00] VITALS: BP 159/69
[2019-05-08] VITALS: BP 151/60
--- NOTE | 2019-05-08 00:40 | NUR ---
PT C/O HEADACHE. DR MALDONADO NOTIFIED AND NEW ORDER RECEIVED. PT MEDICATED WITH TYLENOL PER PRN ORDER FOR C/O HEADACHE.
[2019-05-08 03:57] LABS: ALBUMIN 2.7 gm/dl (3.1-4.5); CREATININE 9.15 mg/dL (0.55-1.02); PHOSPHOROUS 7.8 mg/dL (2.5-4.9); POTASSIUM 4.4 mmol/L (3.5-5.1)
[2019-05-08 08:00] VITALS: BP 151/66
--- NOTE | 2019-05-08 08:20 | NUR ---
CALL PLACED TO DR MALDONADO REGARDING PT'S REQUEST FOR THROAT LOZENGE. ORDER RECEIVED.
--- NOTE | 2019-05-08 09:00 | NUR ---
Production Machine Shop Supervisor in to talk to patient. Patient states lives at home with her boyfriend, 2 daughters, and 2 grandsons. There are 0 steps in the home. Physician: Dr. Shawn Prince Pharmacy: [facility]: her youngest daughter is her aide. She works for [employer] and has been her aide for about 2 years. Patient's level of ADLs: MODERATE ASSIST Patient has working utilities: yes DME: wheelchair, cane, walker Follow-up physician's appointment after d/c: she prefers to make her own follow up appt after discharge Does patient want to access PORTAL?: no Discharge plan discussed with patient. She lives at home with her boyfriend, 2 daughters, and 2 grandsons. She is independent in her ADLs and uses a wheelchair to get around for long distances and either a cane or walker for short distances. Discussed home health care services and she states her youngest daughter is her aide who works for [employer]. When medically stable she will be discharged to home with the resumption of her [employer]. Her daughter will transport on discharge. She is HD MWF with a chair time of 0515. Her boyfriend or daughter transports to HD. Her daughter, Cordelia, will provide transportation on discharge. SARY KRAMER
[2019-05-08 12:00] VITALS: BP 153/56
--- NOTE | 2019-05-08 12:17 | NUR ---
Direction home [facility] Area on aging called stating patient has waiver services with Aides through [employer] Wednesday through Wednesday for 8 hours per day. She also has the emergency response system. Discharge plan to go home when stable.
--- NOTE | 2019-05-08 12:44 | NUR ---
RECEIVED CALL FROM DIALYSIS NURSE, STATES PT THINKS SHE IS HAVING A RECTION TO MEDICINE. PT HAS NOT RECEIVED ANYTHING SINCE 0500. STATES PT IS RED/ITCHY ALL OVER. CALL PLACED TO DR MEJIA. ORDERS RECEIVED.
--- NOTE | 2019-05-08 13:10 | NUR ---
MEDICATED WITH BENADRYL PER PRN ORDER. WILL MONITOR FOR EFFECTIVENESS.
--- NOTE | 2019-05-08 14:39 | NUR ---
DR PATEL'S ANSWERING SERVICE MADE AWARE OF NEW CONSULT.
--- NOTE | 2019-05-08 14:41 | NUR ---
PT STATES VERY LITTLE RELIEF FROM ITCHING WITH BENADRYL. SPOKE WITH DR QUIJANO, ONE TIME DOSE RECEIVED FOR ADDITIONAL 25MG BENADRYL PO.
[2019-05-08 16:00] VITALS: BP 138/90
--- NOTE | 2019-05-08 16:45 | NUR ---
PT RETURNED FROM DIALYSIS. STATES EARLIER BENADRYL HELPED SOME, BUT CONTINUES TO ITCH.
--- NOTE | 2019-05-08 18:44 | NUR ---
PT C/O HEADAHCE, RATES PAIN 7 ON PAIN SCALE 0-10. MEDICATED WITH TYLENOL PO PER PRN ORDER, SEE EMAR. CALL LIGHT IN REACH.
[2019-05-08 20:00] VITALS: BP 154/61
[2019-05-09] VITALS: BP 148/48
[2019-05-09 08:00] VITALS: BP 148/72
[2019-05-09 09:24] LABS: ALBUMIN 2.9 gm/dl (3.1-4.5); CREATININE 5.6 mg/dL (0.55-1.02); PHOSPHOROUS 6.1 mg/dL (2.5-4.9); POTASSIUM 4.8 mmol/L (3.5-5.1); TOTAL PROTEIN 5.9 gm/dL (6.4-8.2)
--- NOTE | 2019-05-09 10:00 | NUR ---
Restaurant Delivery Driver in to see patient. No new needs or request at this time. When medically stable she will be discharged to home with the resumption of her [employer].
[2019-05-09 12:00] VITALS: BP 164/62
[2019-05-09 16:00] VITALS: BP 133/63
[2019-05-09 20:00] VITALS: BP 125/62
[2019-05-10] VITALS: BP 151/57
--- NOTE | 2019-05-10 05:28 | NUR ---
PT REFUSES TO TAKE CLEOCLIN THIS MORNING. STATES THAT HER THROAT IS DRY AND SORE FROM THE MEDICATION. PATIENT HAS NO OTHER COMPLAINTS AT THIS TIME. WILL MONITOR.
[2019-05-10 07:03] LABS: BASO % 0.2 % (0.0-1.0); EOS # 0.4 10*3/uL (0.0-0.4); HEMOGLOBIN 10.7 g/dl (12.0-16.0); LYMPH % 10.5 % (27.0-41.0); MEAN CELL VOLUME 104.8 fl (81.0-99.0); MEAN CORPUSCULAR HGB CONC 30.6 g/dl (33.0-37.0); MEAN PLATELET VOLUME 11.7 fl (9.6-12.3); MONO # 0.6 10*3/uL (0.1-1.0); MONO % 6.5 % (3.0-9.0); NEUT # 7.7 10*3/uL (2.3-7.9); NEUT % 78.4 % (47.0-73.0); PLATELET COUNT AUTOMATED 230 10*3/uL (130-400); RED BLOOD COUNT 3.34 10*6/uL (4.10-5.10); RED CELL DISTRI WIDTH 13.4 % (0-14.5); WHITE BLOOD COUNT 9.9 10*3/uL (4.8-10.8)
[2019-05-10 07:12] LABS: ALBUMIN 2.7 gm/dl (3.1-4.5); CREATININE 7.15 mg/dL (0.55-1.02); POTASSIUM 5.1 mmol/L (3.5-5.1); TOTAL PROTEIN 6.1 gm/dL (6.4-8.2)
[2019-05-10 08:00] VITALS: BP 158/88
--- NOTE | 2019-05-10 08:12 | NUR ---
off floor to dialysis.
--- NOTE | 2019-05-10 08:30 | NUR ---
Deal Architect in to see patient. She is currently getting dialysis in the dialysis room. No new needs or request at this time. When medically stable she will be discharged to home with the resumption of her [employer].
--- NOTE | 2019-05-10 10:20 | NUR ---
BENADRYL GIVEN FOR C/O ITCHING, WILL MONITOR.
--- NOTE | 2019-05-10 11:30 | NUR ---
BENADRYL EFFECTIVE PER PT.
[2019-05-10 12:30] VITALS: BP 155/66
[2019-05-10 16:00] VITALS: BP 156/63
[2019-05-10 20:00] VITALS: BP 150/60
--- NOTE | 2019-05-10 21:10 | NUR ---
PATIENT IS AAOX3 RESTING IN BED WITH EASY AND REGULAR RESPERS ON 2L O2 VIA NC. ASSESSMENT IS COMPLETE WITH NO S/S OF DISTRESS NOTED AT THIS TIME. PATIENT DOES C/O DRY MOUTH AND CEPACOL LOSENGE WAS PROVIDED. BED IS LOW, LOCKED, AND CALL LIGHT IS WITHIN REACH. WILL CONTINUE TO MONITOR SEE SHIFT ASSESSMENT.
[2019-05-11] VITALS: BP 145/49
--- NOTE | 2019-05-11 03:13 | NUR ---
24 HR chart check completed.
[2019-05-11 06:58] LABS: BASO % 0.2 % (0.0-1.0); EOS # 0.4 10*3/uL (0.0-0.4); EOS % 4.6 % (1.0-4.0); HEMATOCRIT 35.6 % (37.0-47.0); HEMOGLOBIN 10.8 g/dl (12.0-16.0); LYMPH # 0.9 10*3/uL (1.3-4.4); LYMPH % 9.7 % (27.0-41.0); MEAN CELL VOLUME 104.7 fl (81.0-99.0); MEAN CORPUSCULAR HGB 31.8 pg (27.0-31.0); MEAN CORPUSCULAR HGB CONC 30.3 g/dl (33.0-37.0); MEAN PLATELET VOLUME 11.7 fl (9.6-12.3); MONO # 0.6 10*3/uL (0.1-1.0); MONO % 6.7 % (3.0-9.0); NEUT # 7.3 10*3/uL (2.3-7.9); NEUT % 78.6 % (47.0-73.0); PLATELET COUNT AUTOMATED 250 10*3/uL (130-400); RED CELL DISTRI WIDTH 13.7 % (0-14.5); WHITE BLOOD COUNT 9.4 10*3/uL (4.8-10.8)
[2019-05-11 07:00] LABS: CREATININE 5.43 mg/dL (0.55-1.02); POTASSIUM 4.8 mmol/L (3.5-5.1)
[2019-05-11] MEDS ORDERED: CLINDAMYCIN HC300 MG PO (11:08)
[2019-05-11] MEDS ORDERED: Rocaltrol0.25 MCG PO ×2 (11:08→12:30)
[2019-05-11] MEDS ORDERED: DIPHENHYDRAMINE25 M2 PO (11:08)
--- NOTE | 2019-05-11 12:41 | NUR ---
Discharge instructions reviewed with patient/family. Patient receptive and verbalizes understanding. Follow-up care arranged. Written instructions given to patient/family. SAIAM TRAMMELL
== END 2019-05-11 12:41 | disposition home or self-care (01) | DRG 291 ==
LOC: ED 15:25 → EDHOLD 17:25 → 4E 17:25
PROVIDERS: Internal Medicine; Physician Assistant; ADMIT Internal Medicine
PROC: 5A1D70Z Performance of Urinary Filtration, Intermittent, Less than 6 Hours Per Day (ICD-10-PCS; principal; 2019-05-08)
DX: I13.2 Hypertensive heart and chronic kidney disease with heart failure and with stage 5 chronic kidney disease, or end stage renal disease (principal); J18.9 Pneumonia, unspecified organism; N18.6 End stage renal disease; I50.33 Acute on chronic diastolic (congestive) heart failure; E44.0 Moderate protein-calorie malnutrition; J44.1 Chronic obstructive pulmonary disease with (acute) exacerbation; J44.0 Chronic obstructive pulmonary disease with (acute) lower respiratory infection; Z68.42 Body mass index [BMI] 45.0-49.9, adult; M79.605 Pain in left leg; R53.1 Weakness; I25.10 Atherosclerotic heart disease of native coronary artery without angina pectoris; E55.9 Vitamin D deficiency, unspecified; D63.1 Anemia in chronic kidney disease; E66.01 Morbid (severe) obesity due to excess calories; L40.9 Psoriasis, unspecified; E20.9 Hypoparathyroidism, unspecified; K21.9 Gastro-esophageal reflux disease without esophagitis; T36.4X5A Adverse effect of tetracyclines, initial encounter; Y92.238 Other place in hospital as the place of occurrence of the external cause; T78.40XA Allergy, unspecified, initial encounter; R09.02 Hypoxemia; Z99.2 Dependence on renal dialysis; Z95.5 Presence of coronary angioplasty implant and graft; Z87.891 Personal history of nicotine dependence; Z88.5 Allergy status to narcotic agent; Z88.8 Allergy status to other drugs, medicaments and biological substances; Z88.1 Allergy status to other antibiotic agents; Z91.041 Radiographic dye allergy status; Z88.6 Allergy status to analgesic agent; Z98.891 History of uterine scar from previous surgery; Z82.49 Family history of ischemic heart disease and other diseases of the circulatory system; Z83.3 Family history of diabetes mellitus; Z84.1 Family history of disorders of kidney and ureter; Z87.01 Personal history of pneumonia (recurrent); I25.2 Old myocardial infarction; Z87.440 Personal history of urinary (tract) infections; Z79.82 Long term (current) use of aspirin; Z79.899 Other long term (current) drug therapy; Z79.02 Long term (current) use of antithrombotics/antiplatelets

== ENCOUNTER 2019-06-04 15:03 | Inpatient (IN) | payer OTHER ==
[~2019-06-04] VITALS: Ht 162.6 cm; Wt 136.7 kg
--- NOTE | ~2019-06-04 | PR ---
[place], [place] PROGRESS NOTE NAME: MONI CRONIN [facility] #: [id number] UNIT #: [id number] ROOM: 529 DOCTOR: CHIN HATCH MD BIRTHDATE: [birth year] DOS: 06/11/2019 NEPHROLOGY FOLLOWUP NOTE SUBJECTIVE: The patient was seen and examined. She was awake and alert. She denies shortness of breath, fevers, chills or night sweats. She denies any major complaints. She hopes to go home today. PHYSICAL EXAMINATION: VITAL SIGNS: Temperature 97.4, pulse 56, respiratory rate 16, blood pressure 137/75. HEENT: Shows no JVD. LUNGS: Diminished breath sounds with no wheeze. HEART: S1, S2. No rub. ABDOMEN: Soft, nontender. EXTREMITIES: Showed trace edema. LABORATORY DATA: Sodium 138, potassium 4.7, CO2 of 29, BUN 98, creatinine 8.1, glucose 107 and calcium 8.1. ASSESSMENT AND PLAN: 1. End-stage renal disease on hemodialysis Wednesday, Wednesday, Wednesday. The patient will continue dialysis as per her normal schedule. Dialysis will be planned for tomorrow. 2. Anemia of chronic disease. Give Epogen as needed with dialysis. 3. Hyperphosphatemia. Continue phosphorus binders. 4. Hypertension. Continue meds. 5. From a renal standpoint, she is okay for discharge if that was planned. She should report to the outpatient clinic tomorrow for her normal dialysis as per schedule. CHIN HATCH MD CM:PNTRANS [id number] CHIN HATCH MD 06/11/192001 interface
--- NOTE | ~2019-06-04 | PR ---
[place], [place] PROGRESS NOTE NAME: MONI CRONIN [facility] #: [id number] UNIT #: [id number] ROOM: 529 DOCTOR: CHIN HATCH MD BIRTHDATE: [birth year] DOS: 06/10/2019 NEPHROLOGY FOLLOWUP NOTE SUBJECTIVE: The patient was seen and examined. She is awake and alert, on room air. She denies shortness of breath, fevers, chills or night sweats. She was asking about her potassium. Apparently it was high today, but the specimen seems to be hemolyzed. She tells me that she had a finger prick and blood was drawn through a tube from there, which probably was not an accurate reading. I did note her potassium from 12/29; it was 5.3 today. PHYSICAL EXAMINATION: VITAL SIGNS: Temperature 97.9, pulse 65, respiratory rate 20, blood pressure 116/66. HEENT: Shows no JVD. LUNGS: Diminished breath sounds. No wheeze. HEART: S1, S2. No rub. ABDOMEN: Soft, nontender. EXTREMITIES: Positive edema. LABORATORY DATA: Potassium 5.3 as mentioned. Hemoglobin 12.4, white count of 14.2, platelets 274. Glucose 116. BUN 68, creatinine 6.2. Sodium 138, calcium 8.5, CO2 of 28. ASSESSMENT AND PLAN: 1. End-stage renal disease. The patient is on dialysis Wednesday, Wednesday and Wednesday. Next dialysis will be planned for Wednesday. Acceptable electrolytes. 2. Anemia of chronic disease. We will give as needed Epogen with dialysis. 3. Hyperphosphatemia. Continue phosphorus binder. 4. Hypertension. Continue meds. CHIN HATCH MD CM:PNTRANS [id number] CHIN HATCH MD 06/11/19 05 interface
--- NOTE | ~2019-06-04 | EKG ---
[place], [place] ELECTROCARDIOGRAM REPORT NAME: MONI CRONIN UNIT #: [id number] ROOM: 529 DOCTOR: FAITH DRAFT REPORT BIRTHDATE: [birth year] [facility] Test Date: 2019-06-04 Test Time: 16:23:11 Pat Name: MONI CRONIN Department: Room: 529 Gender: F Fuel Oil Truck Driver: : [id number] Requested By: KAYLNA MENJIVAR Order Number: [id number] Reading MD: Remy Masterson Measurements Intervals [place] Rate: 62 P: 40 MA: 160 QRS: 24 QRSD: 87 T: 232 QT: 441 QTc: 448 Interpretive Statements Sinus rhythm Anterolateral ST/T abnormality Compared to ECG 05/07/2019 16:22:49 Possible ischemia no longer present Electronically Signed On 06-05-2019 11:13:48 PST by Remy Masterson CM:EKGRPT:ELECTROCARDIOGRAM REPORT [id number] KAYLAN MENJIVAR EPIPHANY DRAFT REPORT KAYLAN MENJIVAR
[2019-06-04 15:03] VITALS: BP 207/86
[~2019-06-04 15:03] MED LIST changes: +CLINDAMYCIN HC300 MG PO; +DIPHENHYDRAMINE25 M2 PO
--- NOTE | 2019-06-04 15:04 | NUR ---
PT PULSE OX 89-90 ON RA PLACED ON 2LNC
[2019-06-04 15:33] VITALS: BP 150/80
[2019-06-04 15:49] LABS: BASO % 0.2 % (0.0-1.0); EOS # 0.3 10*3/uL (0.0-0.4); EOS % 3.3 % (1.0-4.0); HEMATOCRIT 35.7 % (37.0-47.0); HEMOGLOBIN 10.9 g/dl (12.0-16.0); LYMPH # 1.2 10*3/uL (1.3-4.4); MEAN CELL VOLUME 107.2 fl (81.0-99.0); MEAN CORPUSCULAR HGB 32.7 pg (27.0-31.0); MEAN CORPUSCULAR HGB CONC 30.5 g/dl (33.0-37.0); MEAN PLATELET VOLUME 11.1 fl (9.6-12.3); MONO # 0.8 10*3/uL (0.1-1.0); MONO % 7.5 % (3.0-9.0); NEUT # 8.1 10*3/uL (2.3-7.9); NEUT % 77.7 % (47.0-73.0); PLATELET COUNT AUTOMATED 307 10*3/uL (130-400); RED BLOOD COUNT 3.33 10*6/uL (4.10-5.10); RED CELL DISTRI WIDTH 14.1 % (0-14.5); WHITE BLOOD COUNT 10.4 10*3/uL (4.8-10.8)
[2019-06-04 16:00] LABS: ACT PARTIAL THROMBO TIME 28.5 SECONDS (20.0-32.1); INTERNATIONAL NORM RATIO 0.9 (2.0-3.5)
[2019-06-04 16:05] LABS: ALBUMIN 2.9 gm/dl (3.1-4.5); CREATININE 8.17 mg/dL (0.55-1.02); POTASSIUM 4.6 mmol/L (3.5-5.1); TOTAL PROTEIN 6.6 gm/dL (6.4-8.2)
[2019-06-04 16:11] LABS: TROPONIN I 0.207 ng/ml (<0.045)
--- NOTE | 2019-06-04 17:38 | NUR ---
PT RESTING COMFORTABLY IN BED
[2019-06-04] MEDS ORDERED: CETIRIZINE HYDR10 MG PO (18:49)
[2019-06-04 19:39] VITALS: BP 151/61
[2019-06-04 20:00] VITALS: BP 154/80
--- NOTE | 2019-06-04 20:03 | NUR ---
A 58, admitted to 5E, under the services of EVA Pendleton MD with a diagnosis of CHF EXACERBATION, END STAGE KIDNEY DISEASE. Chief complaint is COUGH, SPUTUM. Patient arrived via stretcher from ER. Monitor applied. Initial assessment completed. Vital signs taken and recorded. EVA PENDLETON MD notified of admission to the unit. Orders received. See assessment for past medical history, medications and allergies. Patient and/or family oriented to unit. [address] visitation policy reviewed. Clothing/patient valuable form completed. VAMSHI BOOKER
[2019-06-04] MEDS ORDERED: NORCO 5-325 TA1 EACH PO (20:31)
[2019-06-04] MEDS ORDERED: FLONASE ALLERG9.9 ML NAS (20:34)
--- NOTE | 2019-06-04 20:40 | NUR ---
SPOKE WITH DR. HATCH REGARDING CONSULT FOR DR. LAST AND USE OF LASIX IN PATIENT. DR. HATCH STATED IT WOULD NOT HURT THE PATIENT TO HAVE LASIX SINCE SHE DOES PRODUCE URINE AND WILL BE HAVING DIALYSIS TOMORROW. PATIENT STILL REFUSING IV LASIX UNTIL SHE CAN TALK TO DR. LAST HIMSELF.
--- NOTE | 2019-06-04 20:56 | NUR ---
SPOKE WITH DR. MALDONADO. ADMISSION ORDERS PLACED. ORDERS TO RESUME ALL HOME MEDICATIONS, IV ZITHROMAX 500 MG DAILY, IV ROCEPHIN 1 G DAILY, SOLU-MEDROL IV 80 MG BID, DUONEBS Q4H, AND CONSULT TO DR. LAST.
--- NOTE | 2019-06-04 21:00 | NUR ---
PATIENT EDUCATED ON IV LASIX AND THAT DR. HATCH AND DR. MALDONADO THINK THE PATIENT NEEDS A DOSE OF LASIX FOR THE CONGESTION IN HER LUNGS. PATIENT STILL REFUSING IV LASIX UNTIL SHE CAN TALK TO DR. LAST HIMSELF. PATIENT STATES SHE DOES NOT THINK IT WILL HELP HER. RN TRIED TO EDUCATE PATIENT
--- NOTE | 2019-06-04 23:14 | NUR ---
PRN BENADRYL GIVEN PER REQUEST. PATIENT MOVED TO A DIFFERENT BED PER REQUEST. BED LOCKED IN LOWEST POSITION. CALL LIGHT WITHIN REACH. NO OTHER NEEDS AT THIS TIME.
[2019-06-05] VITALS: BP 139/75
--- NOTE | 2019-06-05 | NUR ---
PRN BENADRYL EFFECTIVE.
--- NOTE | 2019-06-05 01:49 | NUR ---
24 HR chart check completed.
--- NOTE | 2019-06-05 10:30 | NUR ---
Muff Winder in to talk to patient. Patient states lives at home with her boyfriend, 2 daughters, and 2 grandsons. There are 0 steps in the home. Physician: Dr. Shawn Prince Pharmacy: [facility] Home health services: her youngest daughter is her aide. She works for [employer] and has been her aide for about 2 years. Patient's level of ADLs: MODERATE ASSIST Patient has working utilities: yes DME: wheelchair, cane, walker Follow-up physician's appointment after d/c: she prefers to make her own follow up appt after discharge Does patient want to access PORTAL?: no Discharge plan discussed with patient. She lives at home with her boyfriend, 2 daughters, and 2 grandsons. She is independent in her ADLs and uses a wheelchair to get around for long distances and either a cane or walker for short distances. Discussed home health care services and she states her youngest daughter is her aide who works for [employer]. When medically stable she will be discharged to home with the resumption of her [employer]. She is HD MWF with a chair time of 0515. Her boyfriend or daughter transports to HD. Her daughter, Cordelia, will provide transportation on discharge. SARY KRAMER
--- NOTE | 2019-06-05 10:57 | NUR ---
PT REFUSED SCHEDULED 10 AM BP MEDS BEFORE DIALYSIS. PT STATES "MY PRESSURE WILL DROP TOO LOW AND I WILL TAKE THEM WHEN I GET BACK FROM DIALYSIS."
[2019-06-05 12:00] VITALS: BP 151/89
--- NOTE | 2019-06-05 12:37 | NUR ---
PT IN DIALYSIS
[2019-06-05 16:00] VITALS: BP 139/87
--- NOTE | 2019-06-05 17:22 | NUR ---
PT BACK TO THE FLOOR FROM DIALYSIS.
--- NOTE | 2019-06-05 19:34 | NUR ---
NOTIFIED DR. EVANS THAT PATIENT HAS A HEADACHE WITH NO TYLENOL ORDERED. PO PRN TYLENOL 650 MG Q4H ORDERED.
[2019-06-05 20:00] VITALS: BP 114/83
--- NOTE | 2019-06-05 20:08 | NUR ---
PATIENT MEDICATED WITH PRN TYLENOL AND CEPACOL FOR C/O OF HEADACHE AND A DRY THROAT. WILL MONITOR FOR EFFECTIVENESS.
--- NOTE | 2019-06-05 20:40 | NUR ---
PER PATIENT PRN TYLENOL AND CEPACOL EFFECTIVE.
[2019-06-06] VITALS: BP 135/50
--- NOTE | 2019-06-06 00:07 | NUR ---
PATIENT MEDICATED WITH PRN TYLENOL FOR C/O HEADACHE. WILL MONITOR FOR EFFECTIVENESS.
--- NOTE | 2019-06-06 00:50 | NUR ---
PATIENT SLEEPING IN BED. RESPIRATIONS DEEP AND UNLABORED. PRN TYLENOL EFFECTIVE. CALL LIGHT WITHIN REACH.
--- NOTE | 2019-06-06 01:10 | NUR ---
24 HR chart check completed.
--- NOTE | 2019-06-06 05:00 | NUR ---
PATIENT MEDICATED WITH PRN NORCO FOR C/O 10/10 PAIN IN HER EARS AND HEAD. WILL MONITOR FOR EFFECTIVENESS.
--- NOTE | 2019-06-06 05:50 | NUR ---
PER PATIENT PRN NORCO EFFECTIVE.
[2019-06-06 08:00] VITALS: BP 148/98
--- NOTE | 2019-06-06 10:25 | NUR ---
Nutritional Support Services Note: Pt is currently on a regular diet. Ht.5'4 Wt.293#. She delcines a diet instruction for weight loss. Encouraged healthy eating and smaller portion sizes. Pt listened. No other nutrition intervention needed at this time. Will follow as needed. Sonia Brown Rdn Ld
--- NOTE | 2019-06-06 10:30 | NUR ---
Veneer Glue Jointer Feedback in to see patient. Completed HPOA paperwork. Witnessed by CM and SW. Copy placed in chart. Original given to patient with 2 copies. She denies any home needs at this time. When medically stable she will be discharged to home. Per multidisciplinary discharge planning meeting she will be discharged on as waiting on cxr results from this morning and she is HD MWF. Spoke to Dr. Khan patient is not ready for discharge today.
--- NOTE | 2019-06-06 10:36 | NUR ---
PT SITTING UP IN BED DRINKING HER COFFEE. RESPS EASY ON RA. DENIES CH/PRESSURE. NO DISTRESS NOTED. MEDS GIVEN PER MAR. CALL LIGHT IN REACH.
[2019-06-06 12:00] VITALS: BP 141/74; BP 95/58
--- NOTE | 2019-06-06 14:45 | NUR ---
TYLENOL 650 MG GIVEN FOR C/O PAIN,01/09.
[2019-06-06 16:00] VITALS: BP 144/79
[2019-06-06 20:00] VITALS: BP 146/82
--- NOTE | 2019-06-06 21:36 | NUR ---
NYSTATIN APPLIED TO BILATERAL UNDER BREAST AREAS, RED AREAS INTACT.
[2019-06-06 22:33] VITALS: BP 136/68
[2019-06-07] VITALS: BP 151/65
--- NOTE | 2019-06-07 01:38 | NUR ---
PATIENT ADMINISTERED NORCO FOR COMPLAINTS OF ALL OVER PAIN. RN WILL REASSESS
[2019-06-07 06:31] LABS: HEMATOCRIT 40.7 % (37.0-47.0); MEAN CELL VOLUME 108.2 fl (81.0-99.0); MEAN CORPUSCULAR HGB 31.9 pg (27.0-31.0); MEAN CORPUSCULAR HGB CONC 29.5 g/dl (33.0-37.0); MEAN PLATELET VOLUME 12.3 fl (9.6-12.3); PLATELET COUNT AUTOMATED 364 10*3/uL (130-400); RED BLOOD COUNT 3.76 10*6/uL (4.10-5.10); WHITE BLOOD COUNT 13.4 10*3/uL (4.8-10.8)
[2019-06-07 06:43] LABS: CREATININE 7.99 mg/dL (0.55-1.02); POTASSIUM 5.8 mmol/L (3.5-5.1)
[2019-06-07 07:48] VITALS: BP 146/111
--- NOTE | 2019-06-07 07:48 | NUR ---
MEDICATED WITH PRN PO NORCO FOR C/O HEADACHE, BILATERAL EARS AND SHOULDERS PAIN.
[2019-06-07 08:03] LABS: PLATELET SUFFICIENCY NORMAL (NORMAL); TOTAL CELLS COUNTED 100 #CELLS
--- NOTE | 2019-06-07 08:30 | NUR ---
PATIENT TO DIALYSIS BY BED.
--- NOTE | 2019-06-07 10:53 | NUR ---
DR. PAETL'S OFFICE STAFF NOTIFIED OF THE CONSULT.
[2019-06-07 13:48] VITALS: BP 141/79
--- NOTE | 2019-06-07 13:50 | NUR ---
PATIENT BACK FROM DIALYSIS, SEE SHIFT ASSESSMENT FOR DETAILS.
--- NOTE | 2019-06-07 14:49 | NUR ---
Mechanical Design Drafter in to see patient. No new needs or request at this time. She denies any home needs. When medically stable she will be discharged to home. She had dialysis today, plan is to discharge patient tomorrow to home per Dr. Khan.
[2019-06-07 16:00] VITALS: BP 143/62
[2019-06-07 20:00] VITALS: BP 133/104
[2019-06-08] VITALS: BP 120/62
--- NOTE | 2019-06-08 02:49 | NUR ---
MEDICATED WITH NORCO FOR COMPLAINTS OF JAW/TEETH PAIN, HEADACHE, BILATERAL ARM PAIN AND LEG CRAMPS. RN WILL MONITOR FOR EFFECTIVENESS.
--- NOTE | 2019-06-08 04:00 | NUR ---
PATIENT IS APPEARS TO BE SLEEPING AT THIS TIME. PATIENT HAS SNORING RESPIRATIONS,EARLIER PAIN MEDICATION SEEMS TO HAVE HELP REDUCE PATIENTS PAIN LEVEL. RN WILL CONTINUE TO MONITOR THIS PATIENT
[2019-06-08 06:24] LABS: HEMOGLOBIN 12.5 g/dl (12.0-16.0); MEAN CORPUSCULAR HGB 32.1 pg (27.0-31.0); MEAN CORPUSCULAR HGB CONC 29.8 g/dl (33.0-37.0); MEAN PLATELET VOLUME 12.2 fl (9.6-12.3); NUCLEATED RED BLOOD CELL 0.1 % (0.0-0.0); PLATELET COUNT AUTOMATED 321 10*3/uL (130-400); RED BLOOD COUNT 3.89 10*6/uL (4.10-5.10); RED CELL DISTRI WIDTH 13.9 % (0-14.5); WHITE BLOOD COUNT 13.3 10*3/uL (4.8-10.8)
[2019-06-08 06:50] LABS: CREATININE 5.85 mg/dL (0.55-1.02); POTASSIUM 5.2 mmol/L (3.5-5.1)
[2019-06-08 07:01] LABS: PLATELET SUFFICIENCY NORMAL (NORMAL); TOTAL CELLS COUNTED 100 #CELLS
[2019-06-08 08:00] VITALS: BP 128/92
--- NOTE | 2019-06-08 08:41 | NUR ---
NORCO 5/325 MG GIVEN FOR C/O GENERALIZED PAIN,03/11.ZOFRAN GIVEN FOR NAUSEA.
--- NOTE | 2019-06-08 10:00 | NUR ---
Music Instructor in to see patient. No new needs or request at this time. She denies any home needs. When medically stable she will be discharged to home. Per multidisciplinary discharge planning meeting she will be discharged today.
--- NOTE | 2019-06-08 11:03 | NUR ---
DR PAREDES ROUNDED AND DISCUSSED PLAN OF CARE WITH DR HUNT. ORDERS RECIEVED.
--- NOTE | 2019-06-08 11:25 | NUR ---
DR LAST AND TEAM ROUNDED. DR HUNT ROUNDED AND DISCUSSED PLAN OF CARE.
[2019-06-08 12:00] VITALS: BP 104/70
[2019-06-08 16:00] VITALS: BP 119/60
--- NOTE | 2019-06-08 18:07 | NUR ---
NORCO 5/325 MG GIVEN FOR C/O EAR PAIN,02/08.ZOFRAN 4 MG GIVEN FOR NAUSEA.
--- NOTE | 2019-06-08 19:30 | NUR ---
BEDSIDE REPORT RECEIVED ON PT. PT SITTING UP IN BED, ALERT ORIENTED AND PLEASANT MOOD. RESPIRATIONS EASY AND UNLABORED. AT BEDSIDE. PT COMPLAINS OF NOTHING AT THIS TIME. WILL MONITOR. CALL LIGHT IN REACH.
[2019-06-08 20:00] VITALS: BP 147/79
--- NOTE | 2019-06-08 20:00 | NUR ---
PT STATES THAT SHE IS FEELING "HOT AND FLUSHED" FROM THE DYE THAT SHE RECEIVED EARLIER VIA IV FOR HER CT. PT EDUCATED ON SIDE EFFECTS FROM IVP DYE. DR JESUS NOTIFIED AND STATES THAT SHE COME UP TO THE FLOOR TO SEE PATIENT.
--- NOTE | 2019-06-08 21:30 | NUR ---
Hep Lock discontinued to left antecubital. Site asymptomatic. Pressure applied. Sterile dressing applied. PAULETTE FLOYD
[2019-06-09] VITALS: BP 120/63
--- NOTE | 2019-06-09 00:56 | NUR ---
IV started left forearm with #22 protective cath after 1 attempts. Site prepped with Chloroprep. Sterile dressing applied. Patient tolerated procedure well. IV antibiotic infusing at 125 cc/hr. PAULETTE FLOYD
--- NOTE | 2019-06-09 03:27 | NUR ---
PT GIVEN NORCO AT THIS TIME FOR C/O PAIN TO BILATERAL FACE/EARS. WILL MONITOR FOR EFFECTIVENESS. CALL LIGHT IN REACH.
--- NOTE | 2019-06-09 04:27 | NUR ---
MANOJ EFFECTIVE PER PT.
[2019-06-09 05:59] LABS: HEMATOCRIT 41.5 % (37.0-47.0); HEMOGLOBIN 12.5 g/dl (12.0-16.0); MEAN CELL VOLUME 106.4 fl (81.0-99.0); MEAN CORPUSCULAR HGB 32.1 pg (27.0-31.0); MEAN CORPUSCULAR HGB CONC 30.1 g/dl (33.0-37.0); NUCLEATED RED BLOOD CELL 0.1 10*3/uL (0.0-0.0); NUCLEATED RED BLOOD CELL 0.6 % (0.0-0.0); PLATELET COUNT AUTOMATED 325 10*3/uL (130-400); RED CELL DISTRI WIDTH 13.7 % (0-14.5); WHITE BLOOD COUNT 12.1 10*3/uL (4.8-10.8)
[2019-06-09 06:17] LABS: CREATININE 7.85 mg/dL (0.55-1.02); POTASSIUM 5.8 mmol/L (3.5-5.1)
[2019-06-09 06:42] LABS: TOTAL CELLS COUNTED 100 #CELLS
[2019-06-09 06:43] LABS: PLATELET SUFFICIENCY NORMAL (NORMAL)
[2019-06-09 08:00] VITALS: BP 148/66
--- NOTE | 2019-06-09 09:00 | NUR ---
Desk Pen Set Assembler in to see patient. No new needs or request at this time. She denies any home needs. There is mention of transfer to [place] for ENT.
[2019-06-09 12:00] VITALS: BP 141/58
[2019-06-09 16:00] VITALS: BP 136/46
--- NOTE | 2019-06-09 17:15 | NUR ---
NORCO 5/325 MG GIVEN FOR PAIN,03/11.
--- NOTE | 2019-06-09 19:30 | NUR ---
BEDSIDE REPORT RECEIVED ON PT. PT RESTING IN BED, RESPIRATIONS UNLABORED ON 2L NC. PT TALKING WITH , AT BEDSIDE. PT C/O NAUSEA AND REQUESTS SOMETHING FOR IT. NO OTHER COMPLAINTS VOICED. WILL MEDICATE PT WITH SOMETHING AND RETURN. SAFETY MEASURES IN PLACE. CALL LIGHT IN REACH.
[2019-06-09 20:00] VITALS: BP 149/61
--- NOTE | 2019-06-09 20:17 | NUR ---
PT GIVEN 4 MG ZOFRAN VIA IV FOR C/O NAUSEA. WILL MONITOR FOR EFFECTIVENESS. CALL LIGHT IN REACH.
--- NOTE | 2019-06-09 21:14 | NUR ---
PT STATES THAT ZOFRAN IS EFFECTIVE AT THIS TIME. PT C/O CONSTIPATION AND REQUESTS A STOOL SOFTENER. WILL NOTIFY HOSPITALIST. PT ALSO REFUSES ZITHROMAX ANTIBIOTIC. WILL NOTIFY HOSPITALIST OF THIS, WELL. ASSESSMENT IS COMPLETE AT THIS TIME. RESPIRATIONS EASY AND UNLABORED. PT DENIES SHORTNESS OF BREATH AND CHEST PAIN. HOB ELEVATED. PT WATCHING TELEVISION. CALL LIGHT IN REACH.
[2019-06-10] VITALS: BP 160/57
[2019-06-10 00:33] VITALS: BP 124/58
--- NOTE | 2019-06-10 05:26 | NUR ---
PT GIVEN NORCO FOR C/O BACK PAIN. WILL MONITOR FOR EFFECTIVENESS. ALL OTHER AM MEDICATIONS GIVEN AT THIS TIME. NO OTHER COMPLAINTS VOICED. RESPIRATIONS EASY AND UNLABORED ON ROOM AIR. CALL LIGHT IN REACH.
--- NOTE | 2019-06-10 06:28 | NUR ---
MANOJ EFFECTIVE PER PT.
[2019-06-10 06:42] LABS: HEMATOCRIT 40.1 % (37.0-47.0); HEMOGLOBIN 12.4 g/dl (12.0-16.0); MEAN CELL VOLUME 105.8 fl (81.0-99.0); MEAN CORPUSCULAR HGB 32.7 pg (27.0-31.0); MEAN CORPUSCULAR HGB CONC 30.9 g/dl (33.0-37.0); MEAN PLATELET VOLUME 11.9 fl (9.6-12.3); NUCLEATED RED BLOOD CELL 0.1 10*3/uL (0.0-0.0); NUCLEATED RED BLOOD CELL 0.9 % (0.0-0.0); PLATELET COUNT AUTOMATED 274 10*3/uL (130-400); RED BLOOD COUNT 3.79 10*6/uL (4.10-5.10); RED CELL DISTRI WIDTH 13.9 % (0-14.5); WHITE BLOOD COUNT 14.2 10*3/uL (4.8-10.8)
[2019-06-10 06:57] LABS: CREATININE 6.2 mg/dL (0.55-1.02)
[2019-06-10 07:09] LABS: POTASSIUM 6.3 mmol/L (3.5-5.1)
--- NOTE | 2019-06-10 07:13 | NUR ---
LAB CALLS CRITICAL LAB TO THIS NURSE. PT POTASSIUM IS 6.3. DR MALDONADO NOTIFIED. NEW ORDERS RECEIVED FOR 30 GRAMS KAYEXALATE PO NOW. WILL NOTIFY AM NURSE AND PATIENT OF ORDER.
[2019-06-10 07:37] LABS: PLATELET SUFFICIENCY NORMAL (NORMAL); POLYCHROMASIA SLIGHT; TOTAL CELLS COUNTED 100 #CELLS
[2019-06-10 08:00] VITALS: BP 144/56
--- NOTE | 2019-06-10 08:00 | NUR ---
PATIENT IV IS OUT AND DOESN'T WANT A NEW ONE STATES SHE IS GOING HOME.
[2019-06-10 12:00] VITALS: BP 152/61
[2019-06-10 16:00] VITALS: BP 116/66
--- NOTE | 2019-06-10 19:30 | NUR ---
TOOK OVER CARE OF PT AT THIS TIME. PT RESTING IN BED, TAKING BREATHING TREATMENT. NO S/S OF DISTRESS VOICED/OBSERVED. SAFETY MEASURES IN PLACE. CALL LIGHT IN REACH.
[2019-06-10 20:00] VITALS: BP 116/48
--- NOTE | 2019-06-10 22:44 | NUR ---
NOTIFIED DR MALDONADO THAT PT STATES THAT SHE STILL HAS NOT HAD A BOWEL MOVEMENT DESPITE HAVING 30 GRAMS OF KAYEXALATE PO AND 10 MG DULCOLAX PO EARLIER IN THE DAY. PT REQUESTS AN ENEMA, PHYSICIAN STATES IT IS OKAY TO ADD AN ORDER FOR ENEMA-EITHER FLEETS OR TAP WATER. WILL ADD ORDER AND NOTIFY PATIENT.
--- NOTE | 2019-06-10 23:30 | NUR ---
NOTIFIED PT THAT THERE IS A FLEETS ENEMA ORDER IN PLACE. SHE STATES THAT SHE WILL PUT CALL LIGHT ON IF SHE WANTS IT OR FEELS THAT SHE NEEDS IT. AT THIS POINT, PT STILL HAS NOT HAD A BOWEL MOVEMENT. NORMOACTIVE BSX4 QUADS PRESENT AND PT STATES THAT SHE IS PASSING GAS. WILL CONTINUE TO MONITOR PT. CALL LIGHT IN REACH.
[2019-06-11] VITALS: BP 121/45
--- NOTE | 2019-06-11 06:00 | NUR ---
AM MEDICATIONS GIVEN TO PT AT THIS TIME. PT STATES THAT SHE STILL HAS NOT HAD A BOWEL MOVEMENT BUT DENIES WANTING ORDERED PRN FLEETS ENEMA AT THIS TIME. PT RESTING IN BED. RESPIRATIONS EASY AND UNLABORED ON ROOM AIR. CALL LIGHT IN REACH.
[2019-06-11 07:17] LABS: CREATININE 8.07 mg/dL (0.55-1.02); POTASSIUM 4.7 mmol/L (3.5-5.1)
[2019-06-11 08:00] VITALS: BP 154/66
--- NOTE | 2019-06-11 09:18 | NUR ---
PATIENT C/O CONSTIPATION. FLEETS GIVEN.
--- NOTE | 2019-06-11 10:00 | NUR ---
PATIENT HAD BM. FLEETS EFFECTIVE.
[2019-06-11 12:00] VITALS: BP 137/75
[2019-06-11 16:00] VITALS: BP 102/79
[2019-06-11] MEDS ORDERED: CEFDINIR300 MG PO (17:19)
--- NOTE | 2019-06-11 17:30 | NUR ---
PATIENT C/O UNABLE TO HAVE BM AGAIN IT IS STUCK. PATIENT HAD MASSIVE BM WITH ASSIST.
--- NOTE | 2019-06-11 18:17 | NUR ---
PATIENT BEING DISCHARGED TO HOME.
--- NOTE | 2019-06-11 18:32 | NUR ---
PATIENT DISCHARGED TO HOME.
== END 2019-06-11 18:47 | disposition home or self-care (01) | DRG 291 ==
LOC: ED 15:03 → 5E 18:12 → EDHOLD 18:12 → 5E 18:37
PROVIDERS: Nurse Practitioner Family; Student in an Organized Health Care Education/Training Program; ADMIT Internal Medicine
PROC: 5A1D70Z Performance of Urinary Filtration, Intermittent, Less than 6 Hours Per Day (ICD-10-PCS; principal; 2019-06-07)
DX: I13.2 Hypertensive heart and chronic kidney disease with heart failure and with stage 5 chronic kidney disease, or end stage renal disease (principal); J18.9 Pneumonia, unspecified organism; I50.33 Acute on chronic diastolic (congestive) heart failure; N18.6 End stage renal disease; J44.1 Chronic obstructive pulmonary disease with (acute) exacerbation; E44.0 Moderate protein-calorie malnutrition; Z68.41 Body mass index [BMI] 40.0-44.9, adult; D63.1 Anemia in chronic kidney disease; I25.10 Atherosclerotic heart disease of native coronary artery without angina pectoris; K21.9 Gastro-esophageal reflux disease without esophagitis; E20.9 Hypoparathyroidism, unspecified; R73.9 Hyperglycemia, unspecified; E66.01 Morbid (severe) obesity due to excess calories; L40.9 Psoriasis, unspecified; E55.9 Vitamin D deficiency, unspecified; H66.93 Otitis media, unspecified, bilateral; E53.8 Deficiency of other specified B group vitamins; E87.5 Hyperkalemia; Z91.041 Radiographic dye allergy status; Z91.09 Other allergy status, other than to drugs and biological substances; I25.2 Old myocardial infarction; Z83.3 Family history of diabetes mellitus; Z79.82 Long term (current) use of aspirin; Z98.891 History of uterine scar from previous surgery; Z95.5 Presence of coronary angioplasty implant and graft; Z82.49 Family history of ischemic heart disease and other diseases of the circulatory system; Z87.891 Personal history of nicotine dependence

== ENCOUNTER 2019-07-30 12:08 | Inpatient (IN) | payer OTHER ==
[~2019-07-30] VITALS: Ht 162.6 cm; Wt 127.5 kg
[~2019-07-30 12:08] MED LIST changes: +CEFDINIR300 MG PO; +CETIRIZINE HYDR10 MG PO
[2019-07-30 12:29] LABS: BASO % 0.2 % (0.0-1.0); EOS # 0.3 10*3/uL (0.0-0.4); EOS % 3.9 % (1.0-4.0); HEMATOCRIT 36.7 % (37.0-47.0); HEMOGLOBIN 11.2 g/dl (12.0-16.0); LYMPH % 12.2 % (27.0-41.0); MEAN CELL VOLUME 107.9 fl (81.0-99.0); MEAN CORPUSCULAR HGB 32.9 pg (27.0-31.0); MEAN CORPUSCULAR HGB CONC 30.5 g/dl (33.0-37.0); MEAN PLATELET VOLUME 11.4 fl (9.6-12.3); MONO # 0.6 10*3/uL (0.1-1.0); MONO % 6.9 % (3.0-9.0); NEUT # 6.5 10*3/uL (2.3-7.9); NEUT % 76.6 % (47.0-73.0); PLATELET COUNT AUTOMATED 312 10*3/uL (130-400); RED CELL DISTRI WIDTH 14.5 % (0-14.5); WHITE BLOOD COUNT 8.5 10*3/uL (4.8-10.8)
[2019-07-30 12:36] VITALS: BP 141/66
[2019-07-30 12:39] LABS: ACT PARTIAL THROMBO TIME 28.4 SECONDS (20.0-32.1); INTERNATIONAL NORM RATIO 0.9 (2.0-3.5)
[2019-07-30 12:47] LABS: ALBUMIN 3.1 gm/dl (3.1-4.5); CREATININE 8.22 mg/dL (0.55-1.02); POTASSIUM 5.1 mmol/L (3.5-5.1); TOTAL PROTEIN 6.7 gm/dL (6.4-8.2)
--- NOTE | 2019-07-30 12:55 | NUR ---
TROPONIN 0.186. DR ESTEVES AWARE.
[2019-07-30 12:56] LABS: TROPONIN I 0.186 ng/ml (<0.045)
[2019-07-30 13:16] VITALS: BP 129/33
[2019-07-30 13:57] VITALS: BP 148/68
[2019-07-30 14:20] VITALS: BP 144/68
--- NOTE | 2019-07-30 14:20 | NUR ---
A 58, admitted to , under the services of EVA Pendleton MD with a diagnosis of ELEVATED TROPONINS. Chief complaint is SOB. Patient arrived via stretcher from ER. Monitor applied. Initial assessment completed. Vital signs taken and recorded. EVA PENDLETON MD notified of admission to the unit. Orders received. See assessment for past medical history, medications and allergies. Patient and/or family oriented to unit. [facility]U visitation policy reviewed. Clothing/patient valuable form completed. ANNMARIE CRONIN
--- NOTE | 2019-07-30 14:41 | NUR ---
THE PATIENT DENIES ANY WOUNDS BUT DOES HAVE PSORSIS OVER HER BODY WITH ERYTHEMA UNDER BITLATERAL BREASTS. SHE REFUSED PICTURES
--- NOTE | 2019-07-30 15:35 | NUR ---
DR GRIFFIN NOTIFIED OF CONSULT.
--- NOTE | 2019-07-30 15:35 | NUR ---
DR QUINN'S ANSWERING SERVICE NOTIFIED OF CONSULT.
--- NOTE | 2019-07-30 15:59 | NUR ---
NOTIFIED DR GRIFFIN OF CRITICAL TROPONIN.
[2019-07-30 16:00] VITALS: BP 110/56
--- NOTE | 2019-07-30 18:48 | NUR ---
DR GRIFFIN NOTIFIED OF CRITICAL TROPONIN LEVEL.
--- NOTE | 2019-07-30 19:58 | NUR ---
DR. MALDONADO NOTIFIED PATIENT REQUESTING COUGH DROPS. HE STATED OK TO PUT IN
[2019-07-30 20:00] VITALS: BP 137/57
--- NOTE | 2019-07-30 22:19 | NUR ---
NOTIFIED DR. MALDONAOD OF PATIENTS INCREASED TROPONIN. ATTEMPTED TO CONTACT DR. GRIFFIN WITH NO ANSWER. WILL RETRY
--- NOTE | 2019-07-30 22:22 | NUR ---
NOTIFIED DR. GRIFFIN OF PATIENTS TROPONIN LEVEL. NO NEW ORDERS RECIEVED
--- NOTE | 2019-07-30 23:00 | NUR ---
PATIENTS IV BAD. UNABLE TO PUSH LASIX AT THIS TIME. TRIED MULTIPLE IV STICKS. WHEN GETTING A GOOD IV PATIENT JERKS AND DISLODGES IV. PATIENT THEN CONTINUES TO SAY HE WILL JUST LEAVE, BUT ALLOWING MORE TRIES.
--- NOTE | 2019-07-30 23:32 | NUR ---
PRN NORCO GIVEN FOR PT COMPLAINTS OF TEETH PAIN RATING IT 7/10. CALL LIGHT WITHIN REACH, WILL MONITOR
[2019-07-31] VITALS: BP 138/73
--- NOTE | 2019-07-31 00:30 | NUR ---
PRN NORCO APPERS EFFECTIVE, PT SLEEPING
--- NOTE | 2019-07-31 09:00 | NUR ---
Global Sourcing Manager in to talk to patient. Patient states lives at home with boyfriend and family. There are few steps in the home. Physician: justine Pharmacy: [facility] Home health services: none Patient's level of ADLs: INDEPENDENT Patient has working utilities: all working DME: wheelchair, walker Follow-up physician's appointment after d/c: will be made by hospitalist nurse director upon discharge Does patient want to access PORTAL?: no Discharge plan discussed with patient, she lives at home with boyfriend and family, she stated she would return home when medically stable and denies any home needs. LUCIA CRUZ
[2019-07-31 16:00] VITALS: BP 134/85
[2019-07-31 20:00] VITALS: BP 144/82
--- NOTE | 2019-07-31 20:40 | NUR ---
DR. BONILLA NOTIFIED OF PATIENT REQUESTING BREATHING TREATMENTS. ORDER RECIEVED FOR DUONEBS Q4H SCHEDULED
--- NOTE | 2019-07-31 22:38 | NUR ---
PRN CEPACOL GIVEN FOR PT COMPLAINTS OF A COUGH. WILL MONITOR
--- NOTE | 2019-07-31 23:52 | NUR ---
COUGH DROP EFFECTIVE PER PT
[2019-08-01] VITALS: BP 134/66; BP 143/49
--- NOTE | 2019-08-01 00:20 | NUR ---
PRN NORCO GIVEN FOR PT COMPLAINTS OF TEETH PAIN RATING IT 8/10. CALL LIGHT WITHIN REACH, WILL MONITOR
--- NOTE | 2019-08-01 01:30 | NUR ---
PRN MEDICATION APPEARS EFFECTIVE, PT SLEEPING
[2019-08-01 07:44] VITALS: BP 112/72
--- NOTE | 2019-08-01 11:32 | NUR ---
case management visits with patient, she will return home when medically stable possible discharge for today and denies any home needs
[2019-08-01 12:00] VITALS: BP 151/59
[2019-08-01 16:00] VITALS: BP 126/56
[2019-08-01 20:00] VITALS: BP 156/72
[2019-08-02] VITALS: BP 135/60
[2019-08-02 08:00] VITALS: BP 128/64
--- NOTE | 2019-08-02 14:56 | NUR ---
DR GRIFFIN ROUNDED AND SEEN PT.
[2019-08-02 16:00] VITALS: BP 135/50
--- NOTE | 2019-08-02 19:20 | NUR ---
REPORT RECEIVED FROM CATHERINE WHITE. PT IS LYING IN BED AT THIS TIME. VOICES NO COMPLAINTS. CALL LIGHT IN REACH.
[2019-08-02 20:00] VITALS: BP 124/47
--- NOTE | 2019-08-02 21:55 | NUR ---
DR. BARRETO NOTIFED OF PT C/O NAUSEA. WILL ORDER ZOFRAN. ALSO NOTIFIED OF HR 50'S-60'S PER CM. ORDERED TO HOLD COREG DOSE TONIGHT.
[2019-08-03] VITALS: BP 117/55
--- NOTE | 2019-08-03 01:44 | NUR ---
24 HR chart check completed.
[2019-08-03 09:44] LABS: HEMATOCRIT 39.5 % (37.0-47.0); HEMOGLOBIN 11.9 g/dl (12.0-16.0); MEAN CORPUSCULAR HGB 32.2 pg (27.0-31.0); MEAN CORPUSCULAR HGB CONC 30.1 g/dl (33.0-37.0); MEAN PLATELET VOLUME 11.8 fl (9.6-12.3); PLATELET COUNT AUTOMATED 310 10*3/uL (130-400); RED BLOOD COUNT 3.69 10*6/uL (4.10-5.10); RED CELL DISTRI WIDTH 14.2 % (0-14.5); WHITE BLOOD COUNT 12.2 10*3/uL (4.8-10.8)
[2019-08-03 09:56] LABS: CREATININE 6.67 mg/dL (0.55-1.02); POTASSIUM 5.3 mmol/L (3.5-5.1)
[2019-08-03 09:57] LABS: PHOSPHOROUS 5.6 mg/dL (2.5-4.9)
[2019-08-03 10:02] LABS: TOTAL CELLS COUNTED 100 #CELLS
[2019-08-03 10:03] LABS: PLATELET SUFFICIENCY NORMAL (NORMAL); POLYCHROMASIA SLIGHT
--- NOTE | 2019-08-03 10:30 | NUR ---
Sock Knitting Machine Operator in to see patient. Discussed home health care services and she states she has [facility] 5 days a week for 8 hours a day. She is dialysis MWF, chair time 0515. Her boyfriend or daughter transports to dialysis. When medically stable she will be discharged to home with the resumption of her [facility].
[2019-08-03 12:00] VITALS: BP 126/49
[2019-08-03] MEDS ORDERED: DOXYCYCLINE MO100 M1 PO (13:02)
[2019-08-03] MEDS ORDERED: PROAIR HFA8.5 GM INH (13:02)
[2019-08-03] MEDS ORDERED: PREDNISONE10 MG PO (13:02)
[2019-08-03] MEDS ORDERED: NYSTOP60 GM T (13:02)
--- NOTE | 2019-08-03 14:45 | NUR ---
Discharge instructions reviewed with patient/family. Patient receptive and verbalizes understanding. Follow-up care arranged. Written instructions given to patient/family. HARIKA TRAN
--- NOTE | 2019-08-03 14:45 | NUR ---
PT DISCHARGED AT THIS TIME WITH DAUGHTER TO HOME.
== END 2019-08-03 14:45 | disposition home or self-care (01) | DRG 193 ==
LOC: ED 12:08 → EDHOLD 13:33 → 4E 13:33
PROVIDERS: Emergency Medicine; Hospitalist; ADMIT Internal Medicine
PROC: 5A1D70Z Performance of Urinary Filtration, Intermittent, Less than 6 Hours Per Day (ICD-10-PCS; principal; 2019-07-31)
PROC: 5A1D70Z Performance of Urinary Filtration, Intermittent, Less than 6 Hours Per Day (ICD-10-PCS; 2019-08-02)
DX: J18.9 Pneumonia, unspecified organism (principal); N18.6 End stage renal disease; I13.2 Hypertensive heart and chronic kidney disease with heart failure and with stage 5 chronic kidney disease, or end stage renal disease; Z68.42 Body mass index [BMI] 45.0-49.9, adult; J20.9 Acute bronchitis, unspecified; I50.9 Heart failure, unspecified; I25.10 Atherosclerotic heart disease of native coronary artery without angina pectoris; K21.9 Gastro-esophageal reflux disease without esophagitis; L40.9 Psoriasis, unspecified; L30.4 Erythema intertrigo; E55.9 Vitamin D deficiency, unspecified; D63.8 Anemia in other chronic diseases classified elsewhere; E20.9 Hypoparathyroidism, unspecified; R79.89 Other specified abnormal findings of blood chemistry; E66.01 Morbid (severe) obesity due to excess calories; Z95.5 Presence of coronary angioplasty implant and graft; Z79.899 Other long term (current) drug therapy; Z79.82 Long term (current) use of aspirin; Z79.01 Long term (current) use of anticoagulants; Z88.1 Allergy status to other antibiotic agents; Z88.8 Allergy status to other drugs, medicaments and biological substances; Z87.891 Personal history of nicotine dependence; Z83.3 Family history of diabetes mellitus; Z84.1 Family history of disorders of kidney and ureter; Z99.2 Dependence on renal dialysis

== ENCOUNTER 2019-08-04 13:33 | Inpatient (IN) | payer OTHER ==
[~2019-08-04] VITALS: Ht 162.6 cm; Wt 126.6 kg
[~2019-08-04 13:33] MED LIST changes: +NYSTOP60 GM T; +PROAIR HFA8.5 GM INH
[2019-08-04 13:35] VITALS: BP 149/67
[2019-08-04 15:16] LABS: HEMATOCRIT 39.8 % (37.0-47.0); HEMOGLOBIN 12.2 g/dl (12.0-16.0); MEAN CELL VOLUME 107.3 fl (81.0-99.0); MEAN CORPUSCULAR HGB 32.9 pg (27.0-31.0); MEAN CORPUSCULAR HGB CONC 30.7 g/dl (33.0-37.0); MEAN PLATELET VOLUME 11.6 fl (9.6-12.3); PLATELET COUNT AUTOMATED 298 10*3/uL (130-400); RED BLOOD COUNT 3.71 10*6/uL (4.10-5.10); RED CELL DISTRI WIDTH 14.1 % (0-14.5); WHITE BLOOD COUNT 14.7 10*3/uL (4.8-10.8)
[2019-08-04 15:31] LABS: CREATININE 4.46 mg/dL (0.55-1.02); POTASSIUM 4.7 mmol/L (3.5-5.1); TOTAL PROTEIN 6.2 gm/dL (6.4-8.2)
[2019-08-04 15:38] LABS: PLATELET SUFFICIENCY NORMAL (NORMAL); TOTAL CELLS COUNTED 100 #CELLS
[2019-08-04 17:41] VITALS: BP 118/67
[2019-08-04 18:25] VITALS: BP 111/41
[2019-08-04 19:21] VITALS: BP 125/61
[2019-08-04 20:30] VITALS: BP 101/50
[2019-08-05] VITALS: BP 138/50
[2019-08-05 06:34] LABS: BASO % 0.1 % (0.0-1.0); EOS # 0.1 10*3/uL (0.0-0.4); EOS % 0.6 % (1.0-4.0); HEMATOCRIT 37.7 % (37.0-47.0); HEMOGLOBIN 11.1 g/dl (12.0-16.0); LYMPH # 1.4 10*3/uL (1.3-4.4); LYMPH % 12.9 % (27.0-41.0); MEAN CELL VOLUME 107.4 fl (81.0-99.0); MEAN CORPUSCULAR HGB 31.6 pg (27.0-31.0); MEAN CORPUSCULAR HGB CONC 29.4 g/dl (33.0-37.0); MEAN PLATELET VOLUME 11.7 fl (9.6-12.3); MONO # 1.1 10*3/uL (0.1-1.0); MONO % 10.4 % (3.0-9.0); NEUT # 8.1 10*3/uL (2.3-7.9); NEUT % 74.9 % (47.0-73.0); PLATELET COUNT AUTOMATED 297 10*3/uL (130-400); RED BLOOD COUNT 3.51 10*6/uL (4.10-5.10); RED CELL DISTRI WIDTH 14.3 % (0-14.5); WHITE BLOOD COUNT 10.8 10*3/uL (4.8-10.8)
[2019-08-05 07:03] LABS: POTASSIUM 5.4 mmol/L (3.5-5.1)
[2019-08-05 07:04] LABS: CREATININE 5.52 mg/dL (0.55-1.02)
[2019-08-05 08:00] VITALS: BP 130/42
[2019-08-05 12:00] VITALS: BP 107/52
[2019-08-05 16:00] VITALS: BP 93/43
[2019-08-05 17:42] VITALS: BP 118/67
[2019-08-05 20:00] VITALS: BP 125/50
[2019-08-05] MEDS ORDERED: DOCUSATE SOD100 MG PO (20:52)
[2019-08-06] VITALS: BP 115/65
[2019-08-06 08:00] VITALS: BP 116/52
[2019-08-06 12:00] VITALS: BP 117/47
[2019-08-06 16:00] VITALS: BP 110/72
[2019-08-06 16:28] VITALS: BP 112/65
[2019-08-06 20:00] VITALS: BP 102/49
[2019-08-07] VITALS: BP 103/48
[2019-08-07 08:00] VITALS: BP 127/68
[2019-08-07 08:05] VITALS: BP 127/68
[2019-08-07 16:00] VITALS: BP 125/65
[2019-08-07 16:56] LABS: EOS # 0.3 10*3/uL (0.0-0.4); EOS % 2.8 % (1.0-4.0); HEMATOCRIT 32.4 % (37.0-47.0); HEMOGLOBIN 9.9 g/dl (12.0-16.0); LYMPH # 1.2 10*3/uL (1.3-4.4); LYMPH % 12.4 % (27.0-41.0); MEAN CELL VOLUME 107.6 fl (81.0-99.0); MEAN CORPUSCULAR HGB 32.9 pg (27.0-31.0); MEAN CORPUSCULAR HGB CONC 30.6 g/dl (33.0-37.0); MEAN PLATELET VOLUME 11.1 fl (9.6-12.3); MONO # 0.7 10*3/uL (0.1-1.0); MONO % 6.6 % (3.0-9.0); NEUT # 7.7 10*3/uL (2.3-7.9); NEUT % 77.5 % (47.0-73.0); PLATELET COUNT AUTOMATED 241 10*3/uL (130-400); RED BLOOD COUNT 3.01 10*6/uL (4.10-5.10); RED CELL DISTRI WIDTH 14.1 % (0-14.5); WHITE BLOOD COUNT 9.9 10*3/uL (4.8-10.8)
[2019-08-07 17:10] LABS: CREATININE 5.08 mg/dL (0.55-1.02); PHOSPHOROUS 5.3 mg/dL (2.5-4.9); POTASSIUM 4.7 mmol/L (3.5-5.1)
[2019-08-07 20:00] VITALS: BP 122/53
[2019-08-08] VITALS: BP 103/49
[2019-08-08 08:00] VITALS: BP 124/48
[2019-08-08 12:00] VITALS: BP 121/90
[2019-08-08 16:00] VITALS: BP 104/49
== END 2019-08-08 17:50 | disposition home or self-care (01) | DRG 640 ==
LOC: ED 13:33 → 4E 18:48 → EDHOLD 18:48 → 5E 19:41 → 4E 08-06 05:02
PROVIDERS: Hospitalist; Nurse Practitioner Family; Student in an Organized Health Care Education/Training Program; ADMIT Internal Medicine
PROC: 5A1D70Z Performance of Urinary Filtration, Intermittent, Less than 6 Hours Per Day (ICD-10-PCS; principal; 2019-08-07)
DX: E86.0 Dehydration (principal); N18.6 End stage renal disease; J44.1 Chronic obstructive pulmonary disease with (acute) exacerbation; I13.2 Hypertensive heart and chronic kidney disease with heart failure and with stage 5 chronic kidney disease, or end stage renal disease; L40.0 Psoriasis vulgaris; L30.4 Erythema intertrigo; D64.9 Anemia, unspecified; D72.829 Elevated white blood cell count, unspecified; E87.70 Fluid overload, unspecified; I25.10 Atherosclerotic heart disease of native coronary artery without angina pectoris; I25.2 Old myocardial infarction; Z95.5 Presence of coronary angioplasty implant and graft; Z87.891 Personal history of nicotine dependence; Z83.3 Family history of diabetes mellitus; Z82.49 Family history of ischemic heart disease and other diseases of the circulatory system; Z88.1 Allergy status to other antibiotic agents; Z88.0 Allergy status to penicillin; Z88.8 Allergy status to other drugs, medicaments and biological substances; Z79.82 Long term (current) use of aspirin; Z79.899 Other long term (current) drug therapy; Z99.2 Dependence on renal dialysis; I50.9 Heart failure, unspecified; I95.9 Hypotension, unspecified

== ENCOUNTER → 2019-08-22 | Outpatient (CLI) | payer OTHER ==
[~2019-08-22] MED LIST changes: +DOCUSATE SOD100 MG PO; +GABAPENTIN100 M2 PO
--- NOTE | 2019-08-22 11:15 | NUR ---
INFORMED CONSENT OBTAINED FOR LEXISCAN STRESS TEST WITH DR. MALDONADO. RESTING EKG NSR WITH A RESTING HR OF 65 WITH BP OF 104/68. LUNGS CLEAR WITH SPO2 OF 98% ON ROOM AIR. PT COMPLETED A 1:00 LEXISCAN PROTOCOL RECEIVING LEXISCAN 0.4 MG IV OVER 10 SECONDS. HAD NO CHEST PAIN. HAD NONDIAGNOSTIC ST CHANGES. HAD C/O OF FEELING SHORTNESS OF BREATH AND HEADACHE THAT RESOLVED IN RECOVERY. HAD A PEAK HR OF 85 WITH BP OF 100/68. LAST RECOVERY HR OF 78 WITH BP OF 98/62. AWAITING SCANNING IN STABLE CONDITION.
== END | disposition home or self-care (01) ==
LOC: CARD 01:29
DX: I13.0 Hypertensive heart and chronic kidney disease with heart failure and stage 1 through stage 4 chronic kidney disease, or unspecified chronic kidney disease (principal); I50.9 Heart failure, unspecified; N18.6 End stage renal disease; R06.02 Shortness of breath; I25.10 Atherosclerotic heart disease of native coronary artery without angina pectoris

== ENCOUNTER 2019-08-28 19:20 | Emergency (ER) | payer OTHER ==
[~2019-08-28 19:20] MED LIST changes: +MICARDIS20 MG PO; -MICARDIS80 MG PO
[2019-08-28 19:45] LABS: HEMOGLOBIN 11.6 g/dl (12.0-16.0); MEAN CELL VOLUME 108.6 fl (81.0-99.0); MEAN CORPUSCULAR HGB 33.1 pg (27.0-31.0); MEAN CORPUSCULAR HGB CONC 30.5 g/dl (33.0-37.0); MEAN PLATELET VOLUME 11.3 fl (9.6-12.3); PLATELET COUNT AUTOMATED 308 10*3/uL (130-400); RED CELL DISTRI WIDTH 14.1 % (0-14.5); WHITE BLOOD COUNT 6.6 10*3/uL (4.8-10.8)
[2019-08-28 19:56] LABS: ACT PARTIAL THROMBO TIME 27.3 SECONDS (20.0-32.1); INTERNATIONAL NORM RATIO 0.9 (2.0-3.5)
[2019-08-28 20:01] LABS: CREATININE 4.39 mg/dL (0.55-1.02); POTASSIUM 3.8 mmol/L (3.5-5.1); TOTAL PROTEIN 6.6 gm/dL (6.4-8.2)
[2019-08-28 20:05] LABS: PLATELET SUFFICIENCY NORMAL (NORMAL); STOMATOCYTE FEW; TOTAL CELLS COUNTED 100 #CELLS
[2019-08-28 20:27] LABS: TROPONIN I 0.056 ng/ml (<0.045)
[2019-08-28] MEDS ORDERED: MEDROL DOSEPAK4 MG PO (22:26)
[2019-08-29] MEDS ORDERED: [UNRECOGNIZED DRUG - OTHER] SQ (12:56)
== END 2019-08-28 22:50 | disposition home or self-care (01) ==
LOC: ED 19:20
PROVIDERS: Emergency Medicine
DX: R06.00 Dyspnea, unspecified (principal); R06.02 Shortness of breath; I25.10 Atherosclerotic heart disease of native coronary artery without angina pectoris; K21.9 Gastro-esophageal reflux disease without esophagitis; E66.01 Morbid (severe) obesity due to excess calories; I25.2 Old myocardial infarction; I13.2 Hypertensive heart and chronic kidney disease with heart failure and with stage 5 chronic kidney disease, or end stage renal disease; N18.5 Chronic kidney disease, stage 5; M10.9 Gout, unspecified; Z91.041 Radiographic dye allergy status; Z88.1 Allergy status to other antibiotic agents; Z88.8 Allergy status to other drugs, medicaments and biological substances; Z88.6 Allergy status to analgesic agent; Z79.899 Other long term (current) drug therapy; Z79.82 Long term (current) use of aspirin; Z68.42 Body mass index [BMI] 45.0-49.9, adult; Z87.891 Personal history of nicotine dependence

== ENCOUNTER 2019-08-29 09:18 | Inpatient (IN) | payer OTHER ==
[~2019-08-29] VITALS: Ht 162.5 cm; Wt 124.3 kg
[2019-08-29] VITALS (7 sets, daily range): BP systolic 136–177; BP diastolic 53–93
[2019-08-29 09:57] LABS: HEMATOCRIT 42.9 % (37.0-47.0); HEMOGLOBIN 12.8 g/dl (12.0-16.0); MEAN CELL VOLUME 106.2 fl (81.0-99.0); MEAN CORPUSCULAR HGB 31.7 pg (27.0-31.0); MEAN CORPUSCULAR HGB CONC 29.8 g/dl (33.0-37.0); MEAN PLATELET VOLUME 11.4 fl (9.6-12.3); PLATELET COUNT AUTOMATED 331 10*3/uL (130-400); RED BLOOD COUNT 4.04 10*6/uL (4.10-5.10); RED CELL DISTRI WIDTH 14.1 % (0-14.5); WHITE BLOOD COUNT 4.7 10*3/uL (4.8-10.8)
[2019-08-29 10:09] LABS: ACT PARTIAL THROMBO TIME 27.3 SECONDS (20.0-32.1); INTERNATIONAL NORM RATIO 0.9 (2.0-3.5)
[2019-08-29 10:13] LABS: ALBUMIN 3.3 gm/dl (3.1-4.5); CREATININE 5.65 mg/dL (0.55-1.02); POTASSIUM 4.7 mmol/L (3.5-5.1); TOTAL PROTEIN 7.2 gm/dL (6.4-8.2); TROPONIN I 0.043 ng/ml (<0.045)
[2019-08-29 10:18] LABS: TOTAL CELLS COUNTED 100 #CELLS
[2019-08-29 10:20] LABS: PLATELET SUFFICIENCY NORMAL (NORMAL)
--- NOTE | 2019-08-29 10:31 | NUR ---
PT. REFUSES ABG, RUSTY COSME NOTIFIED.
--- NOTE | 2019-08-29 10:45 | NUR ---
MULTIPLE ATTEMPTS MADE BY MULTIPLE NURSES TO ESTABLISH IV ACCESS WTIH NO SUCCESS. RUSTY ANN NOTIFIED.
--- NOTE | 2019-08-29 10:55 | NUR ---
TWO UNSUCCESSFUL ATTEMPTS BY MYSELF AT ACCUCATH INSERTION WHILE PT STILL IN ER.
--- NOTE | 2019-08-29 11:00 | NUR ---
DR BAÑUELOS IN ROOM SPEAKING WTIH PT ABOUT ESTABLISHING PICC LINE FOR ACCESS. PT VOICED UNDERSTANING.
--- NOTE | 2019-08-29 11:20 | NUR ---
A 58, admitted to ICCU, under the services of Dr. ERICA TOTH,[facility] with a diagnosis of ATYPICAL CHEST PAIN, RESPIRATORY FAILURE, CKD. Chief complaint is chest heaviness when laying on her left side and increased shortness of breath. Patient arrived via stretcher from ER. Monitor applied. Initial assessment completed. Vital signs taken and recorded. See assessment for past medical history, medications and allergies. Patient and/or family oriented to unit. [facility] ICCU visitation policy reviewed. Clothing/patient valuable form completed. Patient arrived with no IV in place as unsuccessful attempts in ER and she refused an IJ. Patient will be having a midline placed today. KIRAN TRAMMELL L
--- NOTE | 2019-08-29 11:24 | NUR ---
ASSESSED PATIENT'S SKIN AT NURSE CARING FOR PATIENT'S REQUEST. DRY PLAQUES NOTED TO BILATERAL ARMS AND UPPER BACK. NO OPEN AREAS OR DRAINAGE NOTED AT TIME OF ASSESSMENT. PATIENT STATES SHE TAKES A SHOT ONCE A WEEK FOR THIS. PATIENT AGREED TO AQUAPHOR TO DRY PLAQUES TO BILATAERAL ARMS AND UPPER BACK.
--- NOTE | 2019-08-29 12:28 | NUR ---
REPORT HAS BEEN GIVEN TO [facility], WHO WANTS HER TO ARRIVE TOMORROW AT 0830. I HAVE FAXED HER HOME MED LIST TO THEM. DR KEVIN HAS BEEN NOTIFIED OF THE CONSULT. HE SAYS HE WILL BE UNABLE TO SEE THE PATIENT BEFORE SHE LEAVES IN THE MORNING, TO HAVE THE PATIENT MAKE AN APPOINTMENT WITH HIS OFFICE IF OUTPATIENT PULMONARY WORKUP IS NEEDED AND THAT HE WILL BE AVAILABLE TO SEE HER AT [place] IF SHE ENDS UP BEING ADMITTED THERE AND THEY WANT A PULMONARY WORK UP.
[2019-08-29] MEDS ORDERED: [UNRECOGNIZED DRUG - OTHER] SQ (12:56)
--- NOTE | 2019-08-29 13:09 | NUR ---
DR GRIFFIN CALLED FOR CONSULTATION. HE'S AWARE PT TO BE IN ADULT MINISTRIES DIRECTOR AT [place] TOMORROW AT 0830. HE REQUESTS THAT CONSULTATION ORDER BE CANCELLED HE WILL BE UNABLE TO SEE THE PATIENT PRIOR TO HER TRANSFER. INFORMED HIM THAT HEPARIN PROTOCOL HAS BEEN ORDERED AND FURTHER RECOMMENDATIONS GIVEN TO DR BAÑUELOS THAT HEPARIN DRIP TO BE D/C PRIOR TO HER LEAVING [facility]. ALSO TO GIVE HER 162MG ASA AND 75MG PLAVIX IN AM PRIOR TO PT LEAVING.
--- NOTE | 2019-08-29 13:17 | NUR ---
CONSULT CALLED TO [facility].
--- NOTE | 2019-08-29 13:27 | NUR ---
TO SURGERY FOR MIDLINE - DR BAÑUELOS SPOKE WITH PATIENT PRIOR TO LEAVING
--- NOTE | 2019-08-29 16:01 | NUR ---
PT RETURNED AT 1430 WITH A MIDLINE IN THE LEFT UPPER ARM.
--- NOTE | 2019-08-29 17:14 | NUR ---
RESTING EASILY AT THIS TIME.
--- NOTE | 2019-08-29 17:16 | NUR ---
DR LAST SAW PT EARLIER. HE TOLD PATIENT THAT IF SHE GETS ADMITTED TO [facility] SHE'LL NEED DIALYZED THERE AFTER HER HEART CATH. IF SHE'S DISCHARGED SHE SHOULD CALL OR GO TO THE DIALYSIS CLINIC HERE FOR DIALSYS EVEN IF IT'S ONLY FOR A FEW HOURS. PT UNDERSTANDS THIS.
--- NOTE | 2019-08-29 18:41 | NUR ---
UP TO BSC WITH MINIMAL ASSIST.
--- NOTE | 2019-08-29 20:40 | NUR ---
PT. RESTING IN BED. HEPARIN DRIP INFUSING ORDERED VIA LEFT UPPER ARM, SITE ASYMPT. LUNGS DIMINISHED BILAT, PULSE OX 99% ON 3L NC. ABDOMEN SOFT, NONDISTENDED AND NORMO. EDEMA VS OBESITY. PSORIASIS NOTED ON LIMBS AND TRUNK. FISTULA IN RIGHT UPPER ARM HAS GOOD BRUIT AND THRILL NOTED. RESP. EASY AND REG, NO DISTRESS. HEATH PADILLA, RN
[2019-08-30] VITALS: BP 107/39
[2019-08-30 04:00] VITALS: BP 110/48
[2019-08-30 06:17] LABS: ACT PARTIAL THROMBO TIME 48.3 SECONDS (20.0-32.1); INTERNATIONAL NORM RATIO 0.9 (2.0-3.5)
[2019-08-30 06:33] LABS: CREATININE 7.28 mg/dL (0.55-1.02); FREE T4 0.99 ng/dl (0.76-1.46); PHOSPHOROUS 7.2 mg/dL (2.5-4.9); THYROID STIM HORMONE (HS) 0.449 uIU/ml (0.358-4.75); TOTAL PROTEIN 6.2 gm/dL (6.4-8.2)
[2019-08-30 06:34] LABS: HEMATOCRIT 37.4 % (37.0-47.0); MEAN CELL VOLUME 110.3 fl (81.0-99.0); MEAN CORPUSCULAR HGB 32.4 pg (27.0-31.0); MEAN CORPUSCULAR HGB CONC 29.4 g/dl (33.0-37.0); MEAN PLATELET VOLUME 11.8 fl (9.6-12.3); NUCLEATED RED BLOOD CELL 0.2 % (0.0-0.0); PLATELET COUNT AUTOMATED 316 10*3/uL (130-400); RED BLOOD COUNT 3.39 10*6/uL (4.10-5.10); RED CELL DISTRI WIDTH 14.4 % (0-14.5); WHITE BLOOD COUNT 8.2 10*3/uL (4.8-10.8)
[2019-08-30 07:29] LABS: BASOPHILS 1 % (0-1); PLATELET SUFFICIENCY NORMAL (NORMAL); POLYCHROMASIA SLIGHT; STOMATOCYTE FEW; TOTAL CELLS COUNTED 100 #CELLS; VITAMIN D, 25-HYDROXY 25.6 ng/mL (30-100)
--- NOTE | 2019-08-30 07:50 | NUR ---
patient taken off the floor via stretcher by [facility] ambulance service. patient family present and discharge instruction and educational info given to family members at this time. patient receptive and understanding of discharge information. heparin gtt stopped at this time per Dr. Retana's order.
== END 2019-08-30 07:50 | disposition other institution (70) | DRG 280 ==
LOC: ED 09:18 → EDHOLD 10:47 → ICCU 10:47
PROVIDERS: Family Medicine; Internal Medicine; ADMIT Internal Medicine
PROC: 05HY33Z Insertion of Infusion Device into Upper Vein, Percutaneous Approach (ICD-10-PCS; principal; 2019-08-29)
DX: I21.4 Non-ST elevation (NSTEMI) myocardial infarction (principal); J96.01 Acute respiratory failure with hypoxia; N18.6 End stage renal disease; I13.2 Hypertensive heart and chronic kidney disease with heart failure and with stage 5 chronic kidney disease, or end stage renal disease; Z68.42 Body mass index [BMI] 45.0-49.9, adult; Q61.3 Polycystic kidney, unspecified; E83.41 Hypermagnesemia; R73.9 Hyperglycemia, unspecified; I25.10 Atherosclerotic heart disease of native coronary artery without angina pectoris; E66.01 Morbid (severe) obesity due to excess calories; L40.9 Psoriasis, unspecified; K21.9 Gastro-esophageal reflux disease without esophagitis; L98.8 Other specified disorders of the skin and subcutaneous tissue; I50.9 Heart failure, unspecified; E53.8 Deficiency of other specified B group vitamins; G62.9 Polyneuropathy, unspecified; Z87.891 Personal history of nicotine dependence; Z88.5 Allergy status to narcotic agent; Z99.2 Dependence on renal dialysis; Z88.8 Allergy status to other drugs, medicaments and biological substances; Z88.1 Allergy status to other antibiotic agents; Z91.041 Radiographic dye allergy status; Z83.3 Family history of diabetes mellitus; Z82.49 Family history of ischemic heart disease and other diseases of the circulatory system; I25.2 Old myocardial infarction; Z95.5 Presence of coronary angioplasty implant and graft; Z79.899 Other long term (current) drug therapy

== ENCOUNTER 2019-10-01 16:09 | Inpatient (IN) | payer OTHER ==
[~2019-10-01] VITALS: Ht 162.6 cm; Wt 125.8 kg
[~2019-10-01 16:09] MED LIST changes: +[UNRECOGNIZED DRUG - OTHER] SQ
[2019-10-01 16:22] VITALS: BP 155/56
[2019-10-01 16:43] LABS: BASO % 0.2 % (0.0-1.0); EOS # 0.4 10*3/uL (0.0-0.4); EOS % 4.2 % (1.0-4.0); HEMATOCRIT 38.2 % (37.0-47.0); HEMOGLOBIN 11.6 g/dl (12.0-16.0); LYMPH # 1.1 10*3/uL (1.3-4.4); LYMPH % 12.8 % (27.0-41.0); MEAN CELL VOLUME 106.7 fl (81.0-99.0); MEAN CORPUSCULAR HGB 32.4 pg (27.0-31.0); MEAN CORPUSCULAR HGB CONC 30.4 g/dl (33.0-37.0); MEAN PLATELET VOLUME 11.5 fl (9.6-12.3); MONO # 0.6 10*3/uL (0.1-1.0); MONO % 7.2 % (3.0-9.0); NEUT # 6.7 10*3/uL (2.3-7.9); NEUT % 75.3 % (47.0-73.0); PLATELET COUNT AUTOMATED 242 10*3/uL (130-400); RED BLOOD COUNT 3.58 10*6/uL (4.10-5.10); RED CELL DISTRI WIDTH 13.8 % (0-14.5); WHITE BLOOD COUNT 8.9 10*3/uL (4.8-10.8)
[2019-10-01 16:52] LABS: ACT PARTIAL THROMBO TIME 27.7 SECONDS (20.0-32.1); INTERNATIONAL NORM RATIO 0.9 (2.0-3.5)
[2019-10-01 17:01] LABS: ALBUMIN 3.1 gm/dl (3.1-4.5); CREATININE 8.21 mg/dL (0.55-1.02); POTASSIUM 4.8 mmol/L (3.5-5.1); TOTAL PROTEIN 6.7 gm/dL (6.4-8.2)
[2019-10-01 17:02] LABS: TROPONIN I 0.034 ng/ml (<0.045)
--- NOTE | 2019-10-01 17:16 | NUR ---
PT GIVEN WARM BLANKET AND PILLOW READJUSTED BED TO FOWLERS POSITION PER PT REQUEST
[2019-10-01 18:49] VITALS: BP 177/68
[2019-10-01 19:55] VITALS: BP 152/47
--- NOTE | 2019-10-01 19:55 | NUR ---
A 58, admitted to 5E, under the services of EVA Pendleton MD with a diagnosis of COPD WITH ACUTE EXACERBATION. Chief complaint is SHORTNESS OF BREATH. Patient arrived via bed from ER. Monitor applied. Initial assessment completed. Vital signs taken and recorded. EVA PENDLETON MD notified of admission to the unit. Orders received. See assessment for past medical history, medications and allergies. Patient and/or family oriented to [facility]. visitation policy reviewed. Clothing/patient valuable form completed. RAFA SHELDON RN
[2019-10-01] MEDS ORDERED: ROSUVASTATIN CA20 MG PO (20:14)
[2019-10-01] MEDS ORDERED: FLUTICASONE-SA1 EAC3 INH (20:15)
[2019-10-01] MEDS ORDERED: PROAIR HFA8.5 GM INH (20:16)
--- NOTE | 2019-10-01 21:13 | NUR ---
DR. MALDONADO STATED TO ADD PATIENT ON HEPARIN 5000 UNITS BID SQ
--- NOTE | 2019-10-01 21:39 | NUR ---
CONTACTED TO VERIFY ADMISSION STATUS, PATIENT TO REMAIN MONITORED FOR 24 HOURS AND THEN BECOME MED/SURG AT 2100 HOURS ON SUNDAY 10/01.
--- NOTE | 2019-10-01 21:43 | NUR ---
DT. LAST ANSWERING SERVICE CONTACTED FOR CONSULT, MESSAGE LEFT WITH TERE
--- NOTE | 2019-10-01 21:46 | NUR ---
MESSAGE LEFT WITH ANSWERING SERVICE THAT PATIENT IS ADMITTED TO THE HOSPITAL AND WOULD NOT BE ABLE TO MAKE HER SCHEDULED APPOINTMENT AT THE OFFICE TOMORROW SUNDAY 10/01
--- NOTE | 2019-10-01 21:47 | NUR ---
[facility] CONTACTED AND ANSWERING SERVICE NIKO ADVISED OF PATIENT ADMISSION AND THAT SHE WOULD NEED DIALIZED HERE AND WOULD NOT BE AT HER SCHEDULED CLINIC DAY TOMORROW.
--- NOTE | 2019-10-01 21:51 | NUR ---
DR. GRIFFIN NOTIFIED OF PATIENT ADMISSION SHE HAD AN APPOINTMENT AT THE OFFICE TOMORROW, AND CONSULT.
[2019-10-02] VITALS: BP 156/71
[2019-10-02 06:28] LABS: HEMATOCRIT 41.5 % (37.0-47.0); HEMOGLOBIN 12.4 g/dl (12.0-16.0); MEAN CELL VOLUME 106.1 fl (81.0-99.0); MEAN CORPUSCULAR HGB 31.7 pg (27.0-31.0); MEAN CORPUSCULAR HGB CONC 29.9 g/dl (33.0-37.0); MEAN PLATELET VOLUME 11.7 fl (9.6-12.3); PLATELET COUNT AUTOMATED 275 10*3/uL (130-400); RED BLOOD COUNT 3.91 10*6/uL (4.10-5.10); RED CELL DISTRI WIDTH 13.9 % (0-14.5); WHITE BLOOD COUNT 6.1 10*3/uL (4.8-10.8)
[2019-10-02 06:38] LABS: ALBUMIN 3.2 gm/dl (3.1-4.5); CREATININE 8.82 mg/dL (0.55-1.02)
[2019-10-02 06:39] LABS: POTASSIUM 5.9 mmol/L (3.5-5.1)
[2019-10-02 06:49] LABS: PLATELET SUFFICIENCY NORMAL (NORMAL); TOTAL CELLS COUNTED 100 #CELLS
[2019-10-02 08:00] VITALS: BP 151/63
--- NOTE | 2019-10-02 08:00 | NUR ---
PT AWAKE, ALERT, ORIENTED X3. DENIES ANY NEEDS AT THIS TIME. C/O SOB W/ EXERTION. LUNGS DIMINISHED. DENIES PAIN. NO EDEMA NOTED. NO N/V/D. CALL LIGHT IS WITHIN REACH.
--- NOTE | 2019-10-02 09:00 | NUR ---
Heel Sprayer in to talk to patient. Patient states lives at home with her boyfriend, 2 daughters, and 2 grandsons. There are 0 steps in the home. Physician: Dr. Shawn Prince [facility]acy[facility]: her youngest daughter is her aide who works for [employer], [facility] Patient's level of ADLs: MODERATE ASSIST Patient has working utilities: yes DME: wheelchair, cane, walker, shower chair Follow-up physician's appointment after d/c: she prefers to make her own follow up appt after discharge Does patient want to access PORTAL?: no Discharge plan discussed with patient. She lives at home with her boyfriend, 2 daughters, and 2 grandsons. She is independent in her ADLs and uses a wheelchair to get around for long distances and either a cane or walker for short distances. Discussed home health care services and she states her youngest daughter is her aide who works for [employer]. When medically stable she will be discharged to home with the resumption of her [employer]. She is HD MWF with a chair time of 0515. Her boyfriend or daughter transports to . Her daughter, Cordelia, will provide transportation on discharge. Her [facility] heel caser is Dannielle Anthony. SARY KRAMER
[2019-10-02 12:00] VITALS: BP 122/50
--- NOTE | 2019-10-02 12:47 | NUR ---
PATIENT TAKEN TO DIALYSIS AT THIS TIME.
[2019-10-02 16:00] VITALS: BP 139/79
[2019-10-02 20:00] VITALS: BP 126/51
--- NOTE | 2019-10-02 20:20 | NUR ---
24 HR chart check completed.
--- NOTE | 2019-10-02 21:00 | NUR ---
RESTING IN BED WITH NO DISTRESS NOTED. RESPIRATIONS EASY. LUNGS DIMINISHED, CLEAR. PULSE OX 99% 2L. NON-PROD COUGH. TRACE BLE EDEMA. CALL LIGHT WITHIN REACH. NO VOICED COMPLAINTS.
[2019-10-02] MEDS ORDERED: CALCIUM ACETAT667 MG PO (23:28)
[2019-10-03] VITALS: BP 136/54
--- NOTE | 2019-10-03 00:30 | NUR ---
SLEEPING. RESPIRATIONS EASY. VSS. CALL LIGHT WITHIN REACH
--- NOTE | 2019-10-03 03:00 | NUR ---
SLEEPING. NO DISTRESS NOTED. RESPIRATIONS EASY. O2 IN USE. CALL LIGHT WITHIN REACH.
--- NOTE | 2019-10-03 06:00 | NUR ---
SLEPT THROUGHOUT NIGHT WITH NO DISTRESS NOTED. RESPIRATIONS EASY. CALL LIGHT WITHIN REACH. NO VOICED COMPLAINTS THIS SHIFT
[2019-10-03 06:55] LABS: HEMATOCRIT 40.5 % (37.0-47.0); HEMOGLOBIN 12.1 g/dl (12.0-16.0); MEAN CELL VOLUME 107.7 fl (81.0-99.0); MEAN CORPUSCULAR HGB 32.2 pg (27.0-31.0); MEAN CORPUSCULAR HGB CONC 29.9 g/dl (33.0-37.0); MEAN PLATELET VOLUME 11.9 fl (9.6-12.3); PLATELET COUNT AUTOMATED 255 10*3/uL (130-400); RED BLOOD COUNT 3.76 10*6/uL (4.10-5.10); RED CELL DISTRI WIDTH 14.2 % (0-14.5); WHITE BLOOD COUNT 10.8 10*3/uL (4.8-10.8)
[2019-10-03 06:57] LABS: ALBUMIN 3.1 gm/dl (3.1-4.5); CREATININE 6.37 mg/dL (0.55-1.02); PHOSPHOROUS 6.6 mg/dL (2.5-4.9); POTASSIUM 5.3 mmol/L (3.5-5.1); TOTAL PROTEIN 6.5 gm/dL (6.4-8.2)
[2019-10-03 07:13] LABS: INTERNATIONAL NORM RATIO 0.9 (2.0-3.5)
[2019-10-03 07:31] LABS: PLATELET SUFFICIENCY NORMAL (NORMAL); TOTAL CELLS COUNTED 100 #CELLS
[2019-10-03 08:00] VITALS: BP 155/65
--- NOTE | 2019-10-03 08:13 | NUR ---
PATIENT MEDICATED WITH TYLENOL AT THIS TIME FOR COMPLAINTS OF HEADACHE. WILL MONITOR FOR EFFECTIVENESS.
--- NOTE | 2019-10-03 09:30 | NUR ---
PER PATIENT, HEADACHE HAS BEEN RELIEVED.
[2019-10-03 12:00] VITALS: BP 138/50
[2019-10-03 16:00] VITALS: BP 136/67
--- NOTE | 2019-10-03 16:00 | NUR ---
PATIENT LYING IN BED AND DENIES ANY NEEDS AT THIS TIME. CALL LIGHT WITHIN REACH.
--- NOTE | 2019-10-03 19:58 | NUR ---
24 HR chart check completed.
[2019-10-03 20:00] VITALS: BP 151/51
--- NOTE | 2019-10-03 20:00 | NUR ---
RESTING IN BED WITH NO ACUTE DISTRESS NOTED. RESPIRATIONS EASY. LUNGS DIMINISHED, CLEAR. PULSE OX 96% 2L HUMIDIFIED. CLAIMS INFREQUENT COUGH. ABD SOFT WITH HYPERACTIVE BOWEL SOUNDS. CALL LIGHT WITHIN REACH. NO VOICED COMPLAINTS.
[2019-10-04] VITALS: BP 118/46
--- NOTE | 2019-10-04 | NUR ---
AWAKE BUT DROWSY. RESPIRATIONS EASY. VSS. CALL LIGHT WITHIN REACH
--- NOTE | 2019-10-04 02:53 | NUR ---
C/O NAUSEA. MEDICATED WITH ZOFRAN IV PER PRN ORDER. WILL MONITOR FOR EFFECTIVENESS
--- NOTE | 2019-10-04 04:00 | NUR ---
MEDS APPEAR EFFECTIVE. SLEEPING. RESPIRATIONS EASY. CALL LIGHT WITHIN REACH
[2019-10-04 05:52] LABS: HEMATOCRIT 41.7 % (37.0-47.0); HEMOGLOBIN 12.2 g/dl (12.0-16.0); MEAN CELL VOLUME 107.2 fl (81.0-99.0); MEAN CORPUSCULAR HGB 31.4 pg (27.0-31.0); MEAN CORPUSCULAR HGB CONC 29.3 g/dl (33.0-37.0); MEAN PLATELET VOLUME 11.6 fl (9.6-12.3); PLATELET COUNT AUTOMATED 262 10*3/uL (130-400); RED BLOOD COUNT 3.89 10*6/uL (4.10-5.10); RED CELL DISTRI WIDTH 14.4 % (0-14.5); WHITE BLOOD COUNT 9.4 10*3/uL (4.8-10.8)
--- NOTE | 2019-10-04 06:00 | NUR ---
C/O UPSET STOMACH TO PA. UPON RN ENTERING ROOM, PATIENT SNORING LOUDLY. WILL MONITOR
[2019-10-04 06:02] LABS: CREATININE 8.03 mg/dL (0.55-1.02)
[2019-10-04 06:25] LABS: POTASSIUM 6.1 mmol/L (3.5-5.1)
--- NOTE | 2019-10-04 06:27 | NUR ---
critical k 6.1, called to dr cole. patient receiving dialysis today
[2019-10-04 06:56] LABS: TOTAL CELLS COUNTED 100 #CELLS
[2019-10-04 06:57] LABS: PLATELET SUFFICIENCY NORMAL (NORMAL)
--- NOTE | 2019-10-04 07:00 | NUR ---
transported to dialysis
[2019-10-04 08:00] VITALS: BP 118/62
--- NOTE | 2019-10-04 10:46 | NUR ---
PT MEDICATED WITH IV ZOFRAN PER PRN ORDER FOR C/O NAUSEA/VOMITING. WILL MONITOR EFFECTIVENESS.
[2019-10-04 12:00] VITALS: BP 124/49
--- NOTE | 2019-10-04 12:00 | NUR ---
PT RETURNED TO ROOM FROM SCHEDULED DIALYSIS.
[2019-10-04 12:50] LABS: ALBUMIN 3.1 gm/dl (3.1-4.5); CREATININE 4.31 mg/dL (0.55-1.02); PHOSPHOROUS 4.5 mg/dL (2.5-4.9)
[2019-10-04 12:51] LABS: POTASSIUM 4.6 mmol/L (3.5-5.1)
[2019-10-04 13:24] LABS: HEMATOCRIT 42.3 % (37.0-47.0); HEMOGLOBIN 12.7 g/dl (12.0-16.0); MEAN CELL VOLUME 108.2 fl (81.0-99.0); MEAN CORPUSCULAR HGB 32.5 pg (27.0-31.0); MEAN PLATELET VOLUME 11.4 fl (9.6-12.3); PLATELET COUNT AUTOMATED 242 10*3/uL (130-400); RED BLOOD COUNT 3.91 10*6/uL (4.10-5.10); RED CELL DISTRI WIDTH 14.5 % (0-14.5); WHITE BLOOD COUNT 9.7 10*3/uL (4.8-10.8)
[2019-10-04 13:51] LABS: PLATELET SUFFICIENCY NORMAL (NORMAL); TOTAL CELLS COUNTED 100 #CELLS
--- NOTE | 2019-10-04 15:12 | NUR ---
MYLICON GIVEN PER PRN ORDER FOR C/O INDIGESTION/GAS. WILL MONITOR EFFECTIVENESS.
[2019-10-04 16:00] VITALS: BP 126/53
[2019-10-04 20:00] VITALS: BP 120/65
--- NOTE | 2019-10-04 20:00 | NUR ---
IN TO ASSESS PATIENT. PATIENT SITTING IN BED. PLEASANT AND COOPERATIVE. NASAL CANNULA INTACT. PATIENT STATES SHE HAS AN UPSET STOMACH AND REQUESTING YOSHI RAQUEL. CALL LIGHT WITHIN REACH, WILL MONITOR
--- NOTE | 2019-10-04 20:25 | NUR ---
IN TO ASSESS PATIENT. PATIENT ALERT AND ORIENTED X3. PLEASANT AND COOPERATIVE. NO COMPLAINTS AT THIS TIME. O2 INTACT. + BRUIT AND THRILL TO FISTULA IN RIGHT UPPER ARM. CALL LIGHT WITHIN REACH, WILL MONITOR
[2019-10-05] VITALS: BP 117/50
--- NOTE | 2019-10-05 | NUR ---
PATIENT SLEEPING, NO DISTRESS NOTED. TAMRA LIGHT WITHIN REACH
--- NOTE | 2019-10-05 02:33 | NUR ---
24 HR chart check completed.
--- NOTE | 2019-10-05 05:26 | NUR ---
PRN ZOFRAN GIVEN FOR PT COMPLAINTS OF NAUSEA FROM INDIGESTION
--- NOTE | 2019-10-05 05:29 | NUR ---
PRN TUMS GIVEN FOR PT COMPLAINTS OF INDIGESTION. CALL LIGHT WITHIN REACH, WILL MONITOR
--- NOTE | 2019-10-05 05:50 | NUR ---
HAD PATIENT SIT ON SIDE OF BED PATIENT STATED SHE WAS FEELING INDIGESTION STILL WHILE LAYING DOWN. PATIENT SAT ON SIDE OF BED AND BEGAN BELCHING AND STATED IT MADE HER FEEL BETTER.
--- NOTE | 2019-10-05 06:04 | NUR ---
PRN MYLICON GIVEN FOR PT COMPLAINTS OF GAS
[2019-10-05 06:19] LABS: HEMATOCRIT 45.3 % (37.0-47.0); HEMOGLOBIN 13.2 g/dl (12.0-16.0); MEAN CELL VOLUME 108.6 fl (81.0-99.0); MEAN CORPUSCULAR HGB 31.7 pg (27.0-31.0); MEAN CORPUSCULAR HGB CONC 29.1 g/dl (33.0-37.0); MEAN PLATELET VOLUME 11.7 fl (9.6-12.3); PLATELET COUNT AUTOMATED 275 10*3/uL (130-400); RED BLOOD COUNT 4.17 10*6/uL (4.10-5.10); RED CELL DISTRI WIDTH 14.3 % (0-14.5); WHITE BLOOD COUNT 10.1 10*3/uL (4.8-10.8)
[2019-10-05 06:41] LABS: CREATININE 5.86 mg/dL (0.55-1.02); POTASSIUM 5.3 mmol/L (3.5-5.1)
[2019-10-05 06:45] LABS: TOTAL CELLS COUNTED 100 #CELLS
[2019-10-05 06:46] LABS: PLATELET SUFFICIENCY NORMAL (NORMAL); STOMATOCYTE FEW
[2019-10-05 08:00] VITALS: BP 116/50
--- NOTE | 2019-10-05 08:22 | NUR ---
PT SLEEPING COMFORTABLY IN BED. AROUSES EASILY. 02 IN USE VIA 2LNC. NO VOICED COMPLAINTS AT THIS TIME. WILL CONTINUE TO MONITOR. CALL LIGHT WITHIN REACH. VSS.
--- NOTE | 2019-10-05 08:30 | NUR ---
Housing Development Specialist in to see patient. No new needs or request at this time. When medically stable she will be discharged to home with the resumption of her [employer].
--- NOTE | 2019-10-05 09:43 | NUR ---
IN TO SEE PATIENT.
--- NOTE | 2019-10-05 11:12 | NUR ---
NOTIFIED OF CONSULT. NEW ORDERS RECEIVED.
[2019-10-05 12:00] VITALS: BP 141/52
--- NOTE | 2019-10-05 13:00 | NUR ---
PT GIVEN IV ZOFRAN PER PRN ORDER FOR C/O NAUSEA. ALSO GIVEN PO MYLICON PER PRN ORDER FOR C/O INDIGESTION AND GAS. WILL MONITOR EFFECTIVENESS.
[2019-10-05 16:00] VITALS: BP 116/66
--- NOTE | 2019-10-05 19:48 | NUR ---
PATIENTS FAMILY IN ROOM. PATIENT REQUESTING TO GET SHOWER WITH DAUGHTERS HELP. O2 TUBING LONG ENOUGH TO REACH INTO SHOWER. HEP LOCK WRAPPED FOR PROTECTION. ENCOURAGED PATIENT TO ASK FOR HELP IF NEEDED.
[2019-10-05 20:00] VITALS: BP 145/59
--- NOTE | 2019-10-05 21:53 | NUR ---
PRN TUMS GIVEN FOR PT COMPLAINTS OF INDIGESTION. PATIENT LYING DOWN, AGAIN INSTRUCTED PATIENT TO SIT UP ON SIDE OF BED INSTEAD OF LAYING DOWN. WHEN PATIENT SITS UP SHE BEGINS BELCHING AND STATES SHE FEELS MUCH BETTER
--- NOTE | 2019-10-05 22:10 | NUR ---
PRN MYLICON GIVEN FOR PT COMPLAINTS OF GAS BUILD UP. CALL LIGHT WITHIN REACH, WILL MONITOR
[2019-10-06] VITALS (7 sets, daily range): BP systolic 106–161; BP diastolic 40–81
--- NOTE | 2019-10-06 | NUR ---
PRN MEDICATION APPEARS EFFECTIVE, PT SLEEPING
--- NOTE | 2019-10-06 06:28 | NUR ---
SPOKE WITH VIVEK RODITIFIED HIM THAT PATIENT HAS DIALYSIS AND THAT SHE STATD SHE NEEDED SOMETHING ON HER STOMACH FOR BREAKFAST. HE STATED PATIENT MAY HAVE A CLEAR LIQUID BREAKFAST AND THAT IS IT
--- NOTE | 2019-10-06 06:38 | NUR ---
PATIENT TO DIALYSIS AT THIS TIME
[2019-10-06 08:15] LABS: HEMATOCRIT 41.1 % (37.0-47.0); HEMOGLOBIN 12.2 g/dl (12.0-16.0); MEAN CELL VOLUME 108.2 fl (81.0-99.0); MEAN CORPUSCULAR HGB 32.1 pg (27.0-31.0); MEAN CORPUSCULAR HGB CONC 29.7 g/dl (33.0-37.0); MEAN PLATELET VOLUME 12.1 fl (9.6-12.3); PLATELET COUNT AUTOMATED 245 10*3/uL (130-400); RED CELL DISTRI WIDTH 14.2 % (0-14.5); WHITE BLOOD COUNT 10.9 10*3/uL (4.8-10.8)
[2019-10-06 08:36] LABS: TOTAL CELLS COUNTED 100 #CELLS
[2019-10-06 08:37] LABS: PLATELET SUFFICIENCY NORMAL (NORMAL); STOMATOCYTE FEW
[2019-10-06 08:41] LABS: CREATININE 7.7 mg/dL (0.55-1.02)
[2019-10-06 08:48] LABS: POTASSIUM 6.9 mmol/L (3.5-5.1)
--- NOTE | 2019-10-06 08:48 | NUR ---
ATTEMPTED TO REACH DR STEWART RESIDENT REGARDING CRITICAL POTASSIUM. AWAITNG CALL BACK
--- NOTE | 2019-10-06 11:00 | NUR ---
Mental Hygienist in to see patient in the dialysis room. No new needs or request at this time. When medically stable she will be discharged to home with the resumption of her [employer].
--- NOTE | 2019-10-06 20:14 | NUR ---
PT MEDICATED W/SIMETHICONE FOR C/O GAS/BLOATING, TYLENOL FOR C/O STOMACH PAIN AND ZOFRAN FOR C/O NAUSEA. PT RESTING QUIETLY IN BED WATCHING TV. CALL LIGHT IN REACH.
--- NOTE | 2019-10-06 21:40 | NUR ---
24 HOUR CHART CHECK COMPLETE
[2019-10-07] VITALS: BP 130/41
[2019-10-07 07:06] LABS: HEMATOCRIT 41.3 % (37.0-47.0); HEMOGLOBIN 12.2 g/dl (12.0-16.0); MEAN CELL VOLUME 107.8 fl (81.0-99.0); MEAN CORPUSCULAR HGB 31.9 pg (27.0-31.0); MEAN CORPUSCULAR HGB CONC 29.5 g/dl (33.0-37.0); MEAN PLATELET VOLUME 11.5 fl (9.6-12.3); PLATELET COUNT AUTOMATED 231 10*3/uL (130-400); RED BLOOD COUNT 3.83 10*6/uL (4.10-5.10); RED CELL DISTRI WIDTH 14.1 % (0-14.5); WHITE BLOOD COUNT 11.4 10*3/uL (4.8-10.8)
[2019-10-07 07:17] LABS: CREATININE 5.82 mg/dL (0.55-1.02)
[2019-10-07 07:37] LABS: POTASSIUM 5.9 mmol/L (3.5-5.1)
[2019-10-07 07:48] LABS: PLATELET SUFFICIENCY NORMAL (NORMAL); TOTAL CELLS COUNTED 100 #CELLS
[2019-10-07 08:00] VITALS: BP 120/57
--- NOTE | 2019-10-07 08:41 | NUR ---
PATIENT MEDICATED WITH ZOFRAN FOR COMPLAINTS OF NAUSEA. WILL MONITOR.
--- NOTE | 2019-10-07 09:30 | NUR ---
PT STATES NAUSEA HAS IMPROVED AT THIS TIME. DENIES FURTHER COMPLAINTS.
[2019-10-07 12:00] VITALS: BP 144/66
--- NOTE | 2019-10-07 13:46 | NUR ---
PT MEDICATED WITH NORCO AT THIS TIME FOR COMPLAINTS OF PAIN IN ABD 02/08. WILL MONITOR FOR EFFECTIVENESS.
--- NOTE | 2019-10-07 14:45 | NUR ---
PER PATIENT, PRN MEDICATION HAS BEEN EFFECTIVE.
--- NOTE | 2019-10-07 15:35 | NUR ---
PT MEDICATED WITH ZOFRAN AND MYLICON AT THIS TIME PER ORDERS FOR COMPLAINTS OF NAUSEA AND GAS/INDIGESTION. WILL MONITOR FOR EFFECTIVENESS.
[2019-10-07 16:00] VITALS: BP 105/97
--- NOTE | 2019-10-07 16:35 | NUR ---
PT STATES MEDICATION HAVE SOME RELIEF FOR GI SYMPTOMS.
[2019-10-07 20:00] VITALS: BP 109/67
--- NOTE | 2019-10-07 21:20 | NUR ---
PRN NORCO GIVEN AT THIS TIME FOR 6/10 ABDOMINAL AND GENERALIZED PAIN PER PATIENT, A&O X3, CALL LIGHT WITHIN REACH. WILL CONTINUE TO MONITOR. PRN MYLICON AND ZOFRAN ALSO GIVEN AT THIS TIME AT PATIENT REQUEST FOR GAS PAIN AND NAUSEA.
--- NOTE | 2019-10-07 22:20 | NUR ---
PATIENT RATED HER PAIN AT A 4/10 AT THIS TIME AFTER PRN NORCO WAS GIVEN. A&O X3, CALL LIGHT WITHIN REACH,.
[2019-10-08] VITALS: BP 106/70
[2019-10-08 06:51] LABS: CREATININE 7.26 mg/dL (0.55-1.02)
[2019-10-08 08:00] VITALS: BP 110/50
--- NOTE | 2019-10-08 11:04 | NUR ---
PT MEDICATED WITH ZOFRAN FOR COMPLAINTS OF NAUSEA AT THIS TIME; WILL MONITOR FOR EFFECTIVENESS.
--- NOTE | 2019-10-08 12:15 | NUR ---
PATIENT RESTING, EYES CLOSED, MED APPEARS TO HAVE BEEN EFFECTIVE.
[2019-10-08 16:00] VITALS: BP 137/92
--- NOTE | 2019-10-08 19:41 | NUR ---
48 hour chart check complete
[2019-10-08 20:00] VITALS: BP 150/56
[2019-10-09] VITALS: BP 139/44
[2019-10-09 07:14] LABS: CREATININE 8.81 mg/dL (0.55-1.02)
[2019-10-09 07:23] LABS: POTASSIUM 6.3 mmol/L (3.5-5.1)
--- NOTE | 2019-10-09 07:40 | NUR ---
NOTIFIED REGARDING CRITICAL K LEVEL. THIS NURSE WILL NOTIFY NEPHRO REGARDING K LEVEL THIS AM. NO NEW ORDERS AT THIS TIME. PT IS A SCHEDULED DIALYSIS PATIENT.
--- NOTE | 2019-10-09 07:41 | NUR ---
'S ANSWERING SERVICE CALLED AT THIS TIME REGARDING CRITICAL K LEVEL.
--- NOTE | 2019-10-09 07:47 | NUR ---
NOTIFIED REGARDING CRITICAL K LEVEL.
[2019-10-09 08:00] VITALS: BP 137/74
--- NOTE | 2019-10-09 09:08 | NUR ---
PATIENT TAKEN TO DIALYSIS PER ORDER.
--- NOTE | 2019-10-09 11:35 | NUR ---
PT. UNAVAILABLE IN DIALYSIS
--- NOTE | 2019-10-09 13:59 | NUR ---
PATIENT RETURNED TO ROOM FROM SCHEDULED DIALYSIS.
[2019-10-09 16:00] VITALS: BP 133/77
--- NOTE | 2019-10-09 16:24 | NUR ---
PT MEDICATED WITH PO NORCO PER PRN ORDER FOR C/O GENERALIZED DISCOMFORT/LEG PAIN. RATES PAIN 03/11. WILL MONITOR EFFECTIVENESS.
--- NOTE | 2019-10-09 17:00 | NUR ---
IN TO SEE PATIENT.
--- NOTE | 2019-10-09 17:30 | NUR ---
NORCO EFFECTIVE PER PATIENT.
[2019-10-09 20:00] VITALS: BP 119/47
--- NOTE | 2019-10-09 21:30 | NUR ---
PATIENT FOUND EATING BOX LUNCH. REMINDED OF DIET AND FLUID RESTRICTIONS
--- NOTE | 2019-10-09 21:32 | NUR ---
24 HR chart check completed.
--- NOTE | 2019-10-09 22:00 | NUR ---
ON BSC ATTEMPTING TO VOID AND MOVE BOWELS. C/O CONSTIPATION STATING NO BM SINCE 10/03. PROVIDED WITH MOM PER PRN ORDER. ABD SOFTLY OBESE WITH NORMO BS. ALSO C/O INABILITY TO VOID DESPITE URGE STATING "YOU ARE GOING TO NEED TO CATH ME." BLADDER SCAN COMPLETED, 30 CC NOTED. EXPLAINED TO PATIENT THAT CATH IS NOT WARRANTED
[2019-10-10] VITALS: BP 128/56
--- NOTE | 2019-10-10 | NUR ---
SLEEPING. NO DISTRESS NOTED. RESPIRATIONS EASY. VSS. PULSE OX 96% 2L HUMIDIFIED. CALL LIGHT WITHIN REACH.
--- NOTE | 2019-10-10 06:00 | NUR ---
SLEPT THROUGHOUT NIGHT WITH NO DISTRESS NOTED. RESPIRATIONS EASY. O2 IN USE. CALL LIGHT WITHIN REACH.
--- NOTE | 2019-10-10 06:26 | NUR ---
EARLIER MOM NOT YET EFFECTIVE. HYPER BS, PASSING FLATUS. AGAIN PROVIDED WITH MOM. WILL MONITOR
[2019-10-10 06:36] LABS: CREATININE 6.23 mg/dL (0.55-1.02); POTASSIUM 5.5 mmol/L (3.5-5.1)
[2019-10-10 08:00] VITALS: BP 140/74
--- NOTE | 2019-10-10 08:20 | NUR ---
PT RESTING IN BED. RESP-EASY AND REGULAR. OXYGEN IN USE. NO C/O AT THIS TIME. CALL LIGHT IN REACH. SEE SHIFT ASSESSMENT.
--- NOTE | 2019-10-10 11:30 | NUR ---
PT RESTING IN BED. RESP-EASY AND REGULAR. TOLERATED ROUTINE MED WITH NO PROBLEM. CALL LIGHT IN REACH.
[2019-10-10 12:00] VITALS: BP 105/44
[2019-10-10] MEDS ORDERED: PANTOPRAZOLE SO40 MG PO (12:31)
[2019-10-10] MEDS ORDERED: MEDROL DOSEPAK4 MG PO (12:34)
[2019-10-10] MEDS ORDERED: FLUCONAZOLE100 MG PO (13:05)
--- NOTE | 2019-10-10 14:37 | NUR ---
MEDICATED WITH MILK OF MAGNESIA FOR CONSTIPATION PER PT REQUEST. CALL LIGHT IN REACH.
--- NOTE | 2019-10-10 15:10 | NUR ---
Discharge instructions reviewed with patient/family. Patient receptive and verbalizes understanding. Follow-up care arranged. Written instructions given to patient/family. HEPLOCK 2X2 APPLIED. ESCORTED VIA WHEELCHAIR FOR DISCHARGE WITH DAUGHTER AT HER SIDE. ADELINA RHOADES R
== END 2019-10-10 15:10 | disposition home or self-care (01) | DRG 383 ==
LOC: ED 16:09 → 5E 18:48 → EDHOLD 18:48 → 5E 19:48
PROVIDERS: Hospitalist; Internal Medicine Nephrology; Nurse Practitioner Family; ADMIT Internal Medicine
PROC: 5A1D70Z Performance of Urinary Filtration, Intermittent, Less than 6 Hours Per Day (ICD-10-PCS; principal; 2019-10-02)
PROC: 5A1D70Z Performance of Urinary Filtration, Intermittent, Less than 6 Hours Per Day (ICD-10-PCS; 2019-10-04)
PROC: 0DB68ZX Excision of Stomach, Via Natural or Artificial Opening Endoscopic, Diagnostic (ICD-10-PCS; 2019-10-06)
PROC: 5A1D70Z Performance of Urinary Filtration, Intermittent, Less than 6 Hours Per Day (ICD-10-PCS; 2019-10-06)
PROC: 5A1D70Z Performance of Urinary Filtration, Intermittent, Less than 6 Hours Per Day (ICD-10-PCS; 2019-10-09)
DX: K26.3 Acute duodenal ulcer without hemorrhage or perforation (principal); J96.01 Acute respiratory failure with hypoxia; N18.6 End stage renal disease; J44.1 Chronic obstructive pulmonary disease with (acute) exacerbation; Z68.42 Body mass index [BMI] 45.0-49.9, adult; I50.32 Chronic diastolic (congestive) heart failure; I13.2 Hypertensive heart and chronic kidney disease with heart failure and with stage 5 chronic kidney disease, or end stage renal disease; K22.10 Ulcer of esophagus without bleeding; J01.90 Acute sinusitis, unspecified; R73.9 Hyperglycemia, unspecified; E83.41 Hypermagnesemia; I25.10 Atherosclerotic heart disease of native coronary artery without angina pectoris; K21.9 Gastro-esophageal reflux disease without esophagitis; L40.9 Psoriasis, unspecified; E66.01 Morbid (severe) obesity due to excess calories; E83.39 Other disorders of phosphorus metabolism; G62.9 Polyneuropathy, unspecified; E87.5 Hyperkalemia; D64.9 Anemia, unspecified; E03.9 Hypothyroidism, unspecified; K44.9 Diaphragmatic hernia without obstruction or gangrene; K29.70 Gastritis, unspecified, without bleeding; Z95.5 Presence of coronary angioplasty implant and graft; Z99.2 Dependence on renal dialysis; Z87.891 Personal history of nicotine dependence; Z88.1 Allergy status to other antibiotic agents; Z88.8 Allergy status to other drugs, medicaments and biological substances; Z79.82 Long term (current) use of aspirin; Z79.899 Other long term (current) drug therapy; I25.2 Old myocardial infarction; Z82.49 Family history of ischemic heart disease and other diseases of the circulatory system; Z83.3 Family history of diabetes mellitus; Z84.1 Family history of disorders of kidney and ureter

== ENCOUNTER 2019-10-11 22:47 | Inpatient (IN) | payer OTHER ==
[~2019-10-11] VITALS: Ht 162.5 cm; Wt 123.6 kg
[~2019-10-11 22:47] MED LIST changes: +CALCIUM ACETAT667 MG PO; +FLUCONAZOLE100 MG PO; +FLUTICASONE-SA1 EAC3 INH; +PANTOPRAZOLE SO40 MG PO; +ROSUVASTATIN CA20 MG PO
[2019-10-11 22:54] VITALS: BP 134/76
[2019-10-11 23:55] LABS: HEMATOCRIT 42.8 % (37.0-47.0); HEMOGLOBIN 13.2 g/dl (12.0-16.0); MEAN CELL VOLUME 104.4 fl (81.0-99.0); MEAN CORPUSCULAR HGB 32.2 pg (27.0-31.0); MEAN CORPUSCULAR HGB CONC 30.8 g/dl (33.0-37.0); MEAN PLATELET VOLUME 11.9 fl (9.6-12.3); PLATELET COUNT AUTOMATED 215 10*3/uL (130-400); RED CELL DISTRI WIDTH 14.6 % (0-14.5); WHITE BLOOD COUNT 18.3 10*3/uL (4.8-10.8)
[2019-10-12 00:05] LABS: ACT PARTIAL THROMBO TIME 28.2 SECONDS (20.0-32.1); INTERNATIONAL NORM RATIO 0.9 (2.0-3.5)
[2019-10-12 00:10] LABS: CREATININE 8.32 mg/dL (0.55-1.02)
[2019-10-12 00:15] LABS: POTASSIUM 6.2 mmol/L (3.5-5.1)
[2019-10-12 00:21] LABS: PLATELET SUFFICIENCY NORMAL (NORMAL); TOTAL CELLS COUNTED 100 #CELLS
[2019-10-12 02:53] VITALS: BP 145/91
[2019-10-12] MEDS ORDERED: COREG25 MG PO (03:19)
[2019-10-12 04:06] LABS: BILIRUBIN NEGATIVE (NEGATIVE); BLOOD 1+ (NEGATIVE); CLARITY CLOUDY (CLEAR); COLOR YELLOW (YELLOW); GLUCOSE TRACE (NEGATIVE); KETONE NEGATIVE (NEGATIVE); LEUKO ESTERASE 2+ (NEGATIVE); NITRITE NEGATIVE (NEGATIVE); PH 7.5 (5.0-9.0); SPECIFIC GRAVITY 1.015 (1.005-1.030); UROBILINOGEN 0.2 E.U./dl (0.2-1.0)
[2019-10-12 04:07] LABS: EPITHELIAL CELLS TNTC; YEAST TRACE
[2019-10-12 04:08] LABS: BACTERIA 1+; WBC 21-30 wbc/hpf (0-5)
[2019-10-12 06:23] LABS: BASO % 0.1 % (0.0-1.0); EOS % 0.1 % (1.0-4.0); HEMATOCRIT 41.1 % (37.0-47.0); HEMOGLOBIN 13.1 g/dl (12.0-16.0); LYMPH # 0.7 10*3/uL (1.3-4.4); LYMPH % 3.4 % (27.0-41.0); MEAN CELL VOLUME 103.8 fl (81.0-99.0); MEAN CORPUSCULAR HGB 33.1 pg (27.0-31.0); MEAN CORPUSCULAR HGB CONC 31.9 g/dl (33.0-37.0); MEAN PLATELET VOLUME 12.4 fl (9.6-12.3); MONO # 1.4 10*3/uL (0.1-1.0); MONO % 6.8 % (3.0-9.0); NEUT # 17.9 10*3/uL (2.3-7.9); NEUT % 89.1 % (47.0-73.0); PLATELET COUNT AUTOMATED 217 10*3/uL (130-400); RED BLOOD COUNT 3.96 10*6/uL (4.10-5.10); RED CELL DISTRI WIDTH 14.6 % (0-14.5); WHITE BLOOD COUNT 20.1 10*3/uL (4.8-10.8)
[2019-10-12 06:51] LABS: CREATININE 8.57 mg/dL (0.55-1.02); POTASSIUM 5.9 mmol/L (3.5-5.1)
[2019-10-12 06:52] LABS: PHOSPHOROUS 6.7 mg/dL (2.5-4.9)
[2019-10-12 12:00] VITALS: BP 127/51
[2019-10-12 20:00] VITALS: BP 98/67
[2019-10-13] VITALS: BP 125/78
[2019-10-13 02:53] LABS: ABG BASE EXCESS 5.4 mmol/L (-2.0-2.0); ARTERIAL BLOOD GAS PH 7.389 (7.35-7.45)
[2019-10-13 05:06] LABS: HEPATITIS B SURFACE AG Negative (Negative)
[2019-10-13 08:00] VITALS: BP 116/52
[2019-10-13 12:00] VITALS: BP 152/64
[2019-10-13 16:00] VITALS: BP 128/80
[2019-10-13 20:00] VITALS: BP 114/65
[2019-10-14] VITALS: BP 100/52; BP 114/48
[2019-10-14 08:32] LABS: HEMATOCRIT 33.1 % (37.0-47.0); HEMOGLOBIN 10.3 g/dl (12.0-16.0); MEAN CELL VOLUME 103.8 fl (81.0-99.0); MEAN CORPUSCULAR HGB 32.3 pg (27.0-31.0); MEAN CORPUSCULAR HGB CONC 31.1 g/dl (33.0-37.0); MEAN PLATELET VOLUME 12.7 fl (9.6-12.3); PLATELET COUNT AUTOMATED 150 10*3/uL (130-400); RED BLOOD COUNT 3.19 10*6/uL (4.10-5.10); RED CELL DISTRI WIDTH 14.7 % (0-14.5); WHITE BLOOD COUNT 19.3 10*3/uL (4.8-10.8)
[2019-10-14 08:39] LABS: CREATININE 6.47 mg/dL (0.55-1.02); PHOSPHOROUS 8.1 mg/dL (2.5-4.9); POTASSIUM 5.1 mmol/L (3.5-5.1); TOTAL PROTEIN 4.9 gm/dL (6.4-8.2)
[2019-10-14 08:54] LABS: TOTAL CELLS COUNTED 100 #CELLS
[2019-10-14 08:55] LABS: PLATELET SUFFICIENCY NORMAL (NORMAL); POLYCHROMASIA SLIGHT
[2019-10-14 16:00] VITALS: BP 110/52
[2019-10-14 20:00] VITALS: BP 91/57
[2019-10-15] VITALS: BP 90/43
[2019-10-15 08:00] VITALS: BP 102/58
[2019-10-15 12:00] VITALS: BP 99/71
[2019-10-15 16:00] VITALS: BP 102/65
[2019-10-15 20:00] VITALS: BP 125/97
[2019-10-15 20:51] LABS: HEMATOCRIT 34.4 % (37.0-47.0); HEMOGLOBIN 10.8 g/dl (12.0-16.0); MEAN CELL VOLUME 101.2 fl (81.0-99.0); MEAN CORPUSCULAR HGB 31.8 pg (27.0-31.0); MEAN CORPUSCULAR HGB CONC 31.4 g/dl (33.0-37.0); MEAN PLATELET VOLUME 12.8 fl (9.6-12.3); PLATELET COUNT AUTOMATED 159 10*3/uL (130-400); RED CELL DISTRI WIDTH 14.9 % (0-14.5); WHITE BLOOD COUNT 18.1 10*3/uL (4.8-10.8)
[2019-10-15 21:25] LABS: PLATELET SUFFICIENCY NORMAL (NORMAL); TOTAL CELLS COUNTED 100 #CELLS
[2019-10-16] VITALS: BP 104/61
[2019-10-16 06:32] LABS: CREATININE 6.18 mg/dL (0.55-1.02); POTASSIUM 4.2 mmol/L (3.5-5.1)
[2019-10-16 07:25] LABS: HEMOGLOBIN 9.9 g/dl (12.0-16.0); MEAN CORPUSCULAR HGB 32.6 pg (27.0-31.0); MEAN CORPUSCULAR HGB CONC 31.9 g/dl (33.0-37.0); MEAN PLATELET VOLUME 12.5 fl (9.6-12.3); PLATELET COUNT AUTOMATED 155 10*3/uL (130-400); RED BLOOD COUNT 3.04 10*6/uL (4.10-5.10); RED CELL DISTRI WIDTH 15.1 % (0-14.5); WHITE BLOOD COUNT 15.3 10*3/uL (4.8-10.8)
[2019-10-16 07:44] LABS: PLATELET SUFFICIENCY NORMAL (NORMAL); TOTAL CELLS COUNTED 100 #CELLS
[2019-10-16 08:00] VITALS: BP 108/60
[2019-10-16 16:00] VITALS: BP 90/60
[2019-10-16 20:00] VITALS: BP 90/73
[2019-10-17] VITALS (7 sets, daily range): BP systolic 90–220; BP diastolic 45–98
[2019-10-17 07:15] LABS: HEMATOCRIT 34.1 % (37.0-47.0); HEMOGLOBIN 10.4 g/dl (12.0-16.0); MEAN CELL VOLUME 104.9 fl (81.0-99.0); MEAN CORPUSCULAR HGB CONC 30.5 g/dl (33.0-37.0); MEAN PLATELET VOLUME 12.9 fl (9.6-12.3); PLATELET COUNT AUTOMATED 155 10*3/uL (130-400); RED BLOOD COUNT 3.25 10*6/uL (4.10-5.10); RED CELL DISTRI WIDTH 15.2 % (0-14.5); WHITE BLOOD COUNT 14.4 10*3/uL (4.8-10.8)
[2019-10-17 07:24] LABS: CREATININE 4.55 mg/dL (0.55-1.02); POTASSIUM 3.3 mmol/L (3.5-5.1)
[2019-10-17 08:12] LABS: ATYPICAL LYMPHS 1 % (0-0); PLATELET SUFFICIENCY NORMAL (NORMAL); POLYCHROMASIA SLIGHT; TARGET CELLS FEW; TOTAL CELLS COUNTED 100 #CELLS
[2019-10-18] VITALS: BP 120/45
[2019-10-18 06:45] LABS: BASO % 0.1 % (0.0-1.0); EOS # 0.3 10*3/uL (0.0-0.4); EOS % 2.8 % (1.0-4.0); HEMATOCRIT 31.8 % (37.0-47.0); HEMOGLOBIN 9.6 g/dl (12.0-16.0); LYMPH # 0.9 10*3/uL (1.3-4.4); LYMPH % 7.4 % (27.0-41.0); MEAN CORPUSCULAR HGB CONC 30.2 g/dl (33.0-37.0); MEAN PLATELET VOLUME 12.4 fl (9.6-12.3); MONO # 1.2 10*3/uL (0.1-1.0); MONO % 10.2 % (3.0-9.0); NEUT # 9.2 10*3/uL (2.3-7.9); NEUT % 78.8 % (47.0-73.0); PLATELET COUNT AUTOMATED 150 10*3/uL (130-400); RED CELL DISTRI WIDTH 15.3 % (0-14.5); WHITE BLOOD COUNT 11.7 10*3/uL (4.8-10.8)
[2019-10-18 07:10] LABS: CREATININE 6.24 mg/dL (0.55-1.02); POTASSIUM 3.1 mmol/L (3.5-5.1)
[2019-10-18 08:00] VITALS: BP 122/60
[2019-10-18 12:00] VITALS: BP 90/50
[2019-10-18 16:00] VITALS: BP 137/47
[2019-10-18 20:00] VITALS: BP 121/97
[2019-10-19] VITALS: BP 105/48
[2019-10-19 06:16] LABS: HEMOGLOBIN 10.3 g/dl (12.0-16.0); MEAN CELL VOLUME 105.6 fl (81.0-99.0); MEAN CORPUSCULAR HGB CONC 30.3 g/dl (33.0-37.0); PLATELET COUNT AUTOMATED 173 10*3/uL (130-400); RED BLOOD COUNT 3.22 10*6/uL (4.10-5.10); RED CELL DISTRI WIDTH 14.9 % (0-14.5); WHITE BLOOD COUNT 14.6 10*3/uL (4.8-10.8)
[2019-10-19 06:52] LABS: PLATELET SUFFICIENCY NORMAL (NORMAL); TOTAL CELLS COUNTED 100 #CELLS
[2019-10-19 06:56] LABS: ALBUMIN 2.1 gm/dl (3.1-4.5); CREATININE 4.54 mg/dL (0.55-1.02); PHOSPHOROUS 3.4 mg/dL (2.5-4.9); POTASSIUM 3.8 mmol/L (3.5-5.1); TOTAL PROTEIN 5.6 gm/dL (6.4-8.2)
[2019-10-19 08:00] VITALS: BP 134/54
[2019-10-19 12:00] VITALS: BP 100/50
[2019-10-19] MEDS ORDERED: BACTRIM 400-801 EACH PO (13:10)
[2019-10-19] MEDS ORDERED: IMODIUM A-D2 M2 PO (13:10)
[2019-10-19] MEDS ORDERED: FLAGYL500 MG PO (13:10)
[2019-10-19 16:00] VITALS: BP 103/57
== END 2019-10-19 16:48 | disposition home or self-care (01) | DRG 391 ==
LOC: ED 22:47 → EDHOLD 10-12 01:48 → 4E 10-12 01:48
PROVIDERS: Internal Medicine; Internal Medicine Nephrology; Student in an Organized Health Care Education/Training Program; ADMIT Internal Medicine
PROC: 5A1D70Z Performance of Urinary Filtration, Intermittent, Less than 6 Hours Per Day (ICD-10-PCS; principal; 2019-10-14)
PROC: 5A1D70Z Performance of Urinary Filtration, Intermittent, Less than 6 Hours Per Day (ICD-10-PCS; 2019-10-16)
PROC: 5A1D70Z Performance of Urinary Filtration, Intermittent, Less than 6 Hours Per Day (ICD-10-PCS; 2019-10-18)
DX: K57.20 Diverticulitis of large intestine with perforation and abscess without bleeding (principal); E43 Unspecified severe protein-calorie malnutrition; N18.6 End stage renal disease; N30.01 Acute cystitis with hematuria; I50.32 Chronic diastolic (congestive) heart failure; N25.81 Secondary hyperparathyroidism of renal origin; E87.1 Hypo-osmolality and hyponatremia; I13.2 Hypertensive heart and chronic kidney disease with heart failure and with stage 5 chronic kidney disease, or end stage renal disease; Z68.42 Body mass index [BMI] 45.0-49.9, adult; Q61.3 Polycystic kidney, unspecified; K21.9 Gastro-esophageal reflux disease without esophagitis; I25.10 Atherosclerotic heart disease of native coronary artery without angina pectoris; D75.89 Other specified diseases of blood and blood-forming organs; E87.5 Hyperkalemia; E87.6 Hypokalemia; R73.9 Hyperglycemia, unspecified; L40.9 Psoriasis, unspecified; E66.01 Morbid (severe) obesity due to excess calories; L98.8 Other specified disorders of the skin and subcutaneous tissue; G62.9 Polyneuropathy, unspecified; D63.8 Anemia in other chronic diseases classified elsewhere; E83.39 Other disorders of phosphorus metabolism; D53.9 Nutritional anemia, unspecified; E16.2 Hypoglycemia, unspecified; J44.9 Chronic obstructive pulmonary disease, unspecified; I25.2 Old myocardial infarction; Z99.2 Dependence on renal dialysis; Z95.5 Presence of coronary angioplasty implant and graft; Z87.891 Personal history of nicotine dependence; Z82.49 Family history of ischemic heart disease and other diseases of the circulatory system; Z83.3 Family history of diabetes mellitus; Z84.1 Family history of disorders of kidney and ureter; Z79.82 Long term (current) use of aspirin; Z79.899 Other long term (current) drug therapy; Z88.0 Allergy status to penicillin; Z88.1 Allergy status to other antibiotic agents; Z88.8 Allergy status to other drugs, medicaments and biological substances

== ENCOUNTER 2020-05-19 16:45 | Inpatient (IN) | payer OTHER ==
[~2020-05-19] VITALS: Ht 162.5 cm; Wt 114.9 kg
[~2020-05-19 16:45] MED LIST changes: +BACTRIM 400-801 EACH PO; +FLAGYL500 MG PO; +IMODIUM A-D2 M2 PO
[2020-05-19 16:51] VITALS: BP 130/70
[2020-05-19 17:57] LABS: BASO % 0.2 % (0.0-1.0); EOS # 0.4 10*3/uL (0.0-0.4); EOS % 4.9 % (1.0-4.0); HEMATOCRIT 40.9 % (37.0-47.0); LYMPH # 1.4 10*3/uL (1.3-4.4); LYMPH % 16.3 % (27.0-41.0); MEAN CELL VOLUME 102.5 fl (81.0-99.0); MEAN CORPUSCULAR HGB 31.6 pg (27.0-31.0); MEAN CORPUSCULAR HGB CONC 30.8 g/dl (33.0-37.0); MEAN PLATELET VOLUME 11.1 fl (9.6-12.3); MONO # 0.9 10*3/uL (0.1-1.0); MONO % 10.1 % (3.0-9.0); NEUT # 5.9 10*3/uL (2.3-7.9); NEUT % 68.2 % (47.0-73.0); PLATELET COUNT AUTOMATED 258 10*3/uL (130-400); RED BLOOD COUNT 3.99 10*6/uL (4.10-5.10); RED CELL DISTRI WIDTH 14.4 % (0-14.5); WHITE BLOOD COUNT 8.7 10*3/uL (4.8-10.8)
[2020-05-19 18:09] LABS: ACT PARTIAL THROMBO TIME 30.9 SECONDS (20.0-32.1)
[2020-05-19 18:24] LABS: ALBUMIN 2.8 gm/dl (3.1-4.5); ALKALINE PHOSPHATASE 127 U/L (45-117); BUN 44 mg/dl (7-24); CHLORIDE 103 mmol/L (98-107); SGOT/AST 13 IU/L (3-35); SGPT/ALT 13 U/L (12-78); SODIUM 139 mmol/L (136-145); TOTAL PROTEIN 6.5 gm/dL (6.4-8.2)
[2020-05-19 18:29] LABS: TROPONIN I < 0.015 ng/ml (<0.045)
[2020-05-19 19:20] VITALS: BP 130/72
[2020-05-19 20:00] VITALS: BP 88/51
[2020-05-19] MEDS ORDERED: CETIRIZINE HYDR10 MG PO (20:23)
[2020-05-19] MEDS ORDERED: FLUTICASONE PROP 50 INH (20:24)
--- NOTE | 2020-05-19 21:09 | NUR ---
CALLED ANSWERING SERVICE AND SPOKE WITH TERE TO CONSULT DR LOVETT FOR DIALYSIS,DR LOVETT RETURNED
[2020-05-19 23:33] VITALS: BP 122/74
--- NOTE | 2020-05-20 00:26 | NUR ---
PATIENT IN BED WATCHING TV AWAKE AND ALERT. NO DISTRESS NOTED. VSS. CONT CORPORATE TRUST OFFICER IN PLACE. CALL LIGHT WITHIN REACH. RN WILL CONT TO MONITOR
--- NOTE | 2020-05-20 04:48 | NUR ---
PT RESTING IN ROOM. CALL LIGHT WITHIN REACH. WILL CONTINUE TO MONITOR. NO VOICED COMPLAINTS.
--- NOTE | 2020-05-20 06:14 | NUR ---
PT SLEEPING AT THIS TIME. RESTING COMFORTABLY IN BED. NO DISTRESS NOTED. CALL LIGHT WITHIN REACH. WILL CONTINUE TO MONITOR.
--- NOTE | 2020-05-20 06:44 | NUR ---
PT RESTING COMFORTABLY IN BED. NO DISTRESS NOTED. CALL LIGHT WITHIN REACH. WILL CONTINUE TO MONITOR.
--- NOTE | 2020-05-20 07:38 | NUR ---
PT WAS SLEEPING AWOKE EASILY TOOK MED WITHOUT DIFFICULTY BED IN LOWEST POSITION BED RAILS UP CALL LIGHT IN REACH
[2020-05-20 09:19] VITALS: BP 132/63
[2020-05-20 10:00] VITALS: BP 88/51
--- NOTE | 2020-05-20 10:00 | NUR ---
The assessment has been completed. MARIANELA RIVERA Time: 1000 A 59 year old FEMALE admitted to under services of DR. ERICA TOTH,[facility]. Pt. arrived via ambulatory from ER. Chief complaint: PT WITH INCREASING SOB FOR PAST FEW WEEKS.PT DENIES CHEST PAIN AT THIS TIME AND BELIEVES THIS IS MAINLY A SEASONAL ALLERGY. MARIANELA RIVERA
--- NOTE | 2020-05-20 10:30 | NUR ---
ATTEMPTING TO REACH DR MALDONADO REGARDING PTS BLOOD PRESSURE.WILL REATTEMPT
--- NOTE | 2020-05-20 11:00 | NUR ---
ATTEMPTED TO REACH DR MALDONADO AGAIN,PT REMAINS ASYMPTOMATIC. WILL CONTINUE TO MONITOR.
--- NOTE | 2020-05-20 11:00 | NUR ---
Spout Positioner in to talk to patient. Patient states lives at home with her boyfriend, 2 daughters, and 2 grandsons. There are 0 steps in the home. Physician: Dr. Shawn Prince [facility]acy: [facility]: her youngest daughter is her aide who works for [employer], [facility] Patient's level of ADLs: MODERATE ASSIST Patient has working utilities: yes DME: cane, walker, wheelchair, shower chair Follow-up physician's appointment after d/c: she prefers to make her own follow up appt after discharge Does patient want to access PORTAL?: no Discharge plan discussed with patient. She lives at home with her family. She is independent in her ADLs and uses a wheelchair to get around for long distances and either a cane or walker for short distances. Discussed home health care services and she states her youngest daughter is her aide who works for [employer]. When medically stable she will be discharged to home with the resumption of her [employer]. She is HD MWF with a chair time of 0515. Her boyfriend or daughter transports to . Her daughter, Cordelia, will provide transportation on discharge. Her [facility] field case manager is Dannielle Anthony. SARY KRAMER
--- NOTE | 2020-05-20 13:00 | NUR ---
PT TAKEN OFF FLOOR TO DIALYSIS
--- NOTE | 2020-05-20 17:50 | NUR ---
PT BACK FROM DIALYSIS. NO REPORT RECIEVED FROM DIALYSIS NURSE.
[2020-05-20 20:00] VITALS: BP 123/37
--- NOTE | 2020-05-20 20:09 | NUR ---
24 HR chart check completed.
--- NOTE | 2020-05-20 21:00 | NUR ---
RESTING IN BED WITH NO ACUTE DISTRESS NOTED. RESPIRATIONS EASY. LUNGS DIMINISHED. PULSE OX 96% 2L. NON-PROD COUGH. CALL LIGHT WITHIN REACH. NO VOICED COMPLAINTS
--- NOTE | 2020-05-20 21:48 | NUR ---
REQUESTED AND RECEIVED BENADRYL PER PRN ORDER FOR ITCHING. WILL MONITOR
--- NOTE | 2020-05-20 22:58 | NUR ---
LAURENT JADE PROVIDED TO ASSISTED WITH COUGH.
[2020-05-21] VITALS: BP 125/47
--- NOTE | 2020-05-21 | NUR ---
SLEEPING. NO DISTRESS NOTED. RESPIRATIONS EASY. VSS. CALL LIGHT WITHIN REACH.
--- NOTE | 2020-05-21 06:10 | NUR ---
BENADRYL AGAIN PROVIDED FOR ITCHING D/T PSORIATIC RASH.
[2020-05-21 06:40] LABS: BASO % 0.2 % (0.0-1.0); EOS # 0.4 10*3/uL (0.0-0.4); EOS % 4.7 % (1.0-4.0); HEMATOCRIT 38.3 % (37.0-47.0); LYMPH # 1.1 10*3/uL (1.3-4.4); LYMPH % 11.6 % (27.0-41.0); MEAN CORPUSCULAR HGB 31.2 pg (27.0-31.0); MEAN CORPUSCULAR HGB CONC 30.3 g/dl (33.0-37.0); MEAN PLATELET VOLUME 11.2 fl (9.6-12.3); MONO # 0.9 10*3/uL (0.1-1.0); MONO % 9.4 % (3.0-9.0); NEUT # 6.7 10*3/uL (2.3-7.9); NEUT % 73.8 % (47.0-73.0); PLATELET COUNT AUTOMATED 246 10*3/uL (130-400); RED BLOOD COUNT 3.72 10*6/uL (4.10-5.10); RED CELL DISTRI WIDTH 14.3 % (0-14.5); WHITE BLOOD COUNT 9.1 10*3/uL (4.8-10.8)
[2020-05-21 06:51] LABS: CREATININE 7.07 mg/dL (0.55-1.02); POTASSIUM 5.4 mmol/L (3.5-5.1)
[2020-05-21 08:00] VITALS: BP 105/70
--- NOTE | 2020-05-21 09:00 | NUR ---
CM in to see patient. She is currently having an echo completed at bedside. Will follow up at a later time.
[2020-05-21 12:00] VITALS: BP 147/64
[2020-05-21 16:00] VITALS: BP 127/52
--- NOTE | 2020-05-21 17:18 | NUR ---
ZOFRAN GIVEN FOR C/O NAUSEA. WILL MONITOR
--- NOTE | 2020-05-21 18:13 | NUR ---
ZOFRAN APPEARS EFFECTIVE. PT RESTING IN BED WITH EYES CLOSED.
[2020-05-21 20:00] VITALS: BP 149/55
--- NOTE | 2020-05-21 21:30 | NUR ---
PATIENT REMAINS ASLEEP. NO DISTRESS NOTED. SNORING RESPIRATIONS. CALL LIGHT WITHIN REACH, WILL MONITOR
--- NOTE | 2020-05-21 21:30 | NUR ---
SPOKE WITH DR. SHANKAR AT THIS TIME. PATIENT VOMITED 500CC OF CLEAR GREEN VOMIT. PATIENT LAYING FLAT AND STATED THAT SHE ATE FRUIT AND SALAD WITH RANCH DRESSING TODAY. ENCOURAGED PATIENT TO SIT UP SO THAT SHE WON'T KEEP THROWING UP. PATIENT ALSO COMPLAINING OF PAIN IN THE RIGHT LEG. STATING THAT SHE IS CRAMPING UP AND NEEDS A PAIN PILL. ORDER RECIEVED TO GIVE THE PATIENT HER ZOFRAN EARLY AND THAT DR. SHANKAR WILL GIVE HER A PAIN PILL X1.
--- NOTE | 2020-05-21 22:15 | NUR ---
PRN MEDICATION APPEARS EFFECTIVE, PT SLEEPING
[2020-05-22] VITALS: BP 139/46
--- NOTE | 2020-05-22 03:38 | NUR ---
24 HR chart check completed.
--- NOTE | 2020-05-22 03:40 | NUR ---
PATIENT SLEEPING, SNORING RESPIRATIONS. CALL LIGHT WITHIN REACH, WILL MONITOR
--- NOTE | 2020-05-22 06:15 | NUR ---
PATIENT STATES SHE FEELS A LOT BETTER THIS MORNING. HAS NO COMPLAINTS OR NEEDS AT THIS TIME. CALL LIGHT WITHIN REACH, WILL MONITOR
--- NOTE | 2020-05-22 07:00 | NUR ---
PT TAKEN OFF FLOOR FOR DIALYSIS
[2020-05-22 07:13] LABS: BASO % 0.3 % (0.0-1.0); EOS # 0.2 10*3/uL (0.0-0.4); EOS % 2.6 % (1.0-4.0); HEMATOCRIT 39.5 % (37.0-47.0); LYMPH # 0.9 10*3/uL (1.3-4.4); LYMPH % 12.1 % (27.0-41.0); MEAN CELL VOLUME 104.2 fl (81.0-99.0); MEAN CORPUSCULAR HGB 31.4 pg (27.0-31.0); MEAN CORPUSCULAR HGB CONC 30.1 g/dl (33.0-37.0); MEAN PLATELET VOLUME 11.2 fl (9.6-12.3); MONO # 0.7 10*3/uL (0.1-1.0); MONO % 9.1 % (3.0-9.0); NEUT # 5.8 10*3/uL (2.3-7.9); NEUT % 75.6 % (47.0-73.0); PLATELET COUNT AUTOMATED 233 10*3/uL (130-400); RED BLOOD COUNT 3.79 10*6/uL (4.10-5.10); RED CELL DISTRI WIDTH 14.2 % (0-14.5); WHITE BLOOD COUNT 7.7 10*3/uL (4.8-10.8)
[2020-05-22 07:27] LABS: ALBUMIN 2.5 gm/dl (3.1-4.5); CREATININE 8.66 mg/dL (0.55-1.02)
[2020-05-22 07:43] LABS: POTASSIUM 6.7 mmol/L (3.5-5.1)
--- NOTE | 2020-05-22 07:45 | NUR ---
DR MALDONADO NOTIFIED OF CRITICAL K OF 6.7. STAT POTASSIUM ORDERED.
--- NOTE | 2020-05-22 09:00 | NUR ---
CM in to see patient in dialysis. No new needs or request at this time. Discussed home health care services and she currently has [employer] and would like to resume those services upon discharge. When medically stable she will be discharged to home. CM will continue to follow for any discharge planning needs.
--- NOTE | 2020-05-22 10:30 | NUR ---
DIALYSIS CALLED. STATES PT IS REQUESTING PAIN MEDICATION.SPOKE W DR MALDONADO WHO STATES TO GIVE NORCO 5-325 BID PRN.
--- NOTE | 2020-05-22 10:38 | NUR ---
CALLED DIALYSIS BACK AND EXPLAINED WAITING FOR PHARMACY TO PROFILE MEDICATION. STATES PT IS REQUESTING TO COME OFF OF THE MACHINE ANYWAYS.
--- NOTE | 2020-05-22 11:26 | NUR ---
REPORT RECIEVED FROM DIALYSIS NURSE.
[2020-05-22 12:00] VITALS: BP 108/80
--- NOTE | 2020-05-22 12:02 | NUR ---
DR VELASQUEZ INTO SEE PT
--- NOTE | 2020-05-22 12:07 | NUR ---
PT C/O 5/10 ACHING BACK/LEG PAIN. MEDICATED PER ORDER. WILL MONITOR FOR RELIEF. RESPS EASY AND NON LABORED. CALL LIGHT WITHIN REACH
--- NOTE | 2020-05-22 13:07 | NUR ---
MEDICATION EFFECTIVE PER PT
[2020-05-22 16:00] VITALS: BP 88/54
--- NOTE | 2020-05-22 16:23 | NUR ---
PER DR LAST IF PTS SYSTOLIC JEFFERY IS NOT OVER 90 IN ONE HOUR GIVE A 250 ML FLUID BOLUS
[2020-05-22 17:30] VITALS: BP 100/56
[2020-05-22 20:00] VITALS: BP 126/59
[2020-05-23] VITALS: BP 146/64
[2020-05-23 08:00] VITALS: BP 102/50
--- NOTE | 2020-05-23 09:00 | NUR ---
CM in to see patient. No new needs or request at this time. Discussed home health care services and she states she has her youngest daughter at [employer] taking care of her. She denies any other home meeds. CM will continue to follow for any discharge planning needs. When medically stable she will be discharged to home. She states her daughter will provide transportation on discharge.
[2020-05-23 12:00] VITALS: BP 109/74
[2020-05-23 16:00] VITALS: BP 104/73
--- NOTE | 2020-05-23 17:06 | NUR ---
Patient reported pain, medicaided as ordered. Respirations easy and regular, skins warm and dry. No acute distress noted at this time. Verbalized relief.
--- NOTE | 2020-05-23 18:00 | NUR ---
CALLED TO CHECK IF PATIENT IS DISCHARGED. NO ORDER IN BUT DISCHARGE SUMMARY. DR. MALDONADO AWARE PATIENT IS DIZZY AND WILL DISCHARGE TOMORROW 05/24.
[2020-05-23 20:00] VITALS: BP 102/42
--- NOTE | 2020-05-23 20:00 | NUR ---
PATIENT VOICED NO COMPLAINTS. NO OVERT DISTRESS NOTED, RESP ARE EASY AND REGULAR. BED IS LOCKED IN LOWEST POSITION. CALL LIGHT WITHIN REACH
--- NOTE | 2020-05-23 21:22 | NUR ---
COREG HELD PER NURSING JUDGEMENT, BLOOD PRESSURES ARE LOW 100/40'S. WILL MONITOR
[2020-05-24] VITALS: BP 119/96
[2020-05-24 05:51] LABS: CREATININE 7.78 mg/dL (0.55-1.02)
[2020-05-24 08:00] VITALS: BP 132/84
--- NOTE | 2020-05-24 09:00 | NUR ---
CM in to see patient. No new needs or request at this time. Discussed home health care services and she declines any other home health care services. She currently has [employer] and will resume those services upon discharge. CM will continue to follow for any discharge planning needs. When medically stable she will be discharged to home.
--- NOTE | 2020-05-24 11:00 | NUR ---
CALLED DR. SURESH TO SEE IF PATIENT WAS GOING TO GET DIALYSIS TODAY. CALLED [facility] TO CHECK ON STATUS OF DIALYSIS.
--- NOTE | 2020-05-24 12:10 | NUR ---
PATIENT TAKEN TO DILAYSIS.
--- NOTE | 2020-05-24 12:41 | NUR ---
NORCO GIVEN FOR C/O BACK PAIN. WILL MONITOR.
--- NOTE | 2020-05-24 13:10 | NUR ---
MANOJ HELPED MINIMALLY.
[2020-05-24 13:35] LABS: BASO % 0.1 % (0.0-1.0); EOS # 0.2 10*3/uL (0.0-0.4); EOS % 2.9 % (1.0-4.0); HEMATOCRIT 34.4 % (37.0-47.0); LYMPH # 0.6 10*3/uL (1.3-4.4); LYMPH % 8.5 % (27.0-41.0); MEAN CELL VOLUME 103.9 fl (81.0-99.0); MEAN CORPUSCULAR HGB CONC 30.8 g/dl (33.0-37.0); MEAN PLATELET VOLUME 11.1 fl (9.6-12.3); MONO # 0.6 10*3/uL (0.1-1.0); MONO % 8.8 % (3.0-9.0); NEUT # 5.8 10*3/uL (2.3-7.9); NEUT % 79.3 % (47.0-73.0); PLATELET COUNT AUTOMATED 179 10*3/uL (130-400); RED BLOOD COUNT 3.31 10*6/uL (4.10-5.10); RED CELL DISTRI WIDTH 13.8 % (0-14.5); WHITE BLOOD COUNT 7.3 10*3/uL (4.8-10.8)
[2020-05-24 14:09] LABS: ALBUMIN 2.4 gm/dl (3.1-4.5); CREATININE 5.29 mg/dL (0.55-1.02); POTASSIUM 4.1 mmol/L (3.5-5.1)
[2020-05-24 14:10] LABS: CREATININE 5.31 mg/dL (0.55-1.02); POTASSIUM 4.1 mmol/L (3.5-5.1)
[2020-05-24 16:00] VITALS: BP 138/87
--- NOTE | 2020-05-24 17:00 | NUR ---
PATIENT BACK IN ROOM FROM DILAYSIS AND SEEMS CONFUSED. STATING SHE DOESN'T WANT STUDENT NURSES IN THERE BECAUSE THEY COULDN'T WAKE HER UP. EXPLAINED THAT WAS YESTERDAY THERE ARE NO STUDENT NURSES HERE TODAY. SHE STATED IM TRYING TO MAKE HER THINK SHE IS CRAZY. DR. SURESH HERE AND STATES JUST WATCH PATIENT IF BECOMES WORSE CALL DR. MALDONADO.
--- NOTE | 2020-05-24 18:53 | NUR ---
PATIENT CALLED OUT WANTING TO SPEAK TO NURSE. UPON ENTERING ROOM PATIENT STATES SHE KNOWS WHY SHE WAS SLEEPY AND CONFUSED IS BECAUSE THE BENADRYL SHE WAS GIVEN 3 DAYS PRIOR. PATIENT STATES SHE FEELS BETTER.
[2020-05-24 20:00] VITALS: BP 108/48
--- NOTE | 2020-05-24 22:04 | NUR ---
SHANT MEDICATED WITH NORCO FOR C/O HIP PAIN 02/08. WILL MONITOR
[2020-05-25] VITALS: BP 111/70
[2020-05-25 06:05] LABS: CREATININE 4.95 mg/dL (0.55-1.02); POTASSIUM 4.2 mmol/L (3.5-5.1)
[2020-05-25 08:00] VITALS: BP 121/42
--- NOTE | 2020-05-25 11:05 | NUR ---
PATIENT DISCHARGED TO HOME.
== END 2020-05-25 11:05 | disposition home or self-care (01) | DRG 193 ==
LOC: ED 16:45 → 4E 19:15 → EDHOLD 19:15 → 4E 05-20 07:15
PROVIDERS: Emergency Medicine; Internal Medicine Nephrology; ADMIT Internal Medicine; ATTEND Internal Medicine
PROC: 5A1D70Z Performance of Urinary Filtration, Intermittent, Less than 6 Hours Per Day (ICD-10-PCS; principal; 2020-05-20)
PROC: 5A1D70Z Performance of Urinary Filtration, Intermittent, Less than 6 Hours Per Day (ICD-10-PCS; 2020-05-22)
PROC: 5A1D70Z Performance of Urinary Filtration, Intermittent, Less than 6 Hours Per Day (ICD-10-PCS; 2020-05-24)
DX: J18.9 Pneumonia, unspecified organism (principal); N18.6 End stage renal disease; J98.11 Atelectasis; E44.0 Moderate protein-calorie malnutrition; Z68.41 Body mass index [BMI] 40.0-44.9, adult; Z79.899 Other long term (current) drug therapy; R06.02 Shortness of breath; R05 Cough; R09.89 Other specified symptoms and signs involving the circulatory and respiratory systems; R74.8 Abnormal levels of other serum enzymes; I50.9 Heart failure, unspecified; E66.01 Morbid (severe) obesity due to excess calories; K21.9 Gastro-esophageal reflux disease without esophagitis; E20.9 Hypoparathyroidism, unspecified; G62.9 Polyneuropathy, unspecified; J44.9 Chronic obstructive pulmonary disease, unspecified; I25.10 Atherosclerotic heart disease of native coronary artery without angina pectoris; R22.31 Localized swelling, mass and lump, right upper limb; I35.0 Nonrheumatic aortic (valve) stenosis; N28.1 Cyst of kidney, acquired; E87.5 Hyperkalemia; I11.0 Hypertensive heart disease with heart failure; D64.9 Anemia, unspecified; Z53.29 Procedure and treatment not carried out because of patient's decision for other reasons; L40.9 Psoriasis, unspecified; R25.2 Cramp and spasm; Z99.2 Dependence on renal dialysis; Z88.8 Allergy status to other drugs, medicaments and biological substances; Z88.1 Allergy status to other antibiotic agents; Z91.041 Radiographic dye allergy status; I25.2 Old myocardial infarction; Z87.440 Personal history of urinary (tract) infections; Z98.891 History of uterine scar from previous surgery; Z87.891 Personal history of nicotine dependence; Z82.49 Family history of ischemic heart disease and other diseases of the circulatory system; Z83.3 Family history of diabetes mellitus; Z84.1 Family history of disorders of kidney and ureter; Z95.5 Presence of coronary angioplasty implant and graft

== ENCOUNTER 2020-10-27 10:06 | Inpatient (IN) | payer OTHER ==
[~2020-10-27] VITALS: Ht 160 cm; Wt 109.8 kg
[~2020-10-27 10:06] MED LIST changes: +FLUTICASONE PROP 50 INH
[2020-10-27 10:13] VITALS: BP 190/60
[2020-10-27 10:28] LABS: BASO % 0.2 % (0.0-1.0); EOS # 0.3 10*3/uL (0.0-0.4); HEMATOCRIT 42.3 % (37.0-47.0); LYMPH # 0.8 10*3/uL (1.3-4.4); LYMPH % 9.7 % (27.0-41.0); MEAN CELL VOLUME 100.7 fl (81.0-99.0); MEAN CORPUSCULAR HGB CONC 30.7 g/dl (33.0-37.0); MEAN PLATELET VOLUME 10.5 fl (9.6-12.3); MONO # 0.5 10*3/uL (0.1-1.0); MONO % 6.6 % (3.0-9.0); NEUT # 6.5 10*3/uL (2.3-7.9); NEUT % 79.3 % (47.0-73.0); PLATELET COUNT AUTOMATED 304 10*3/uL (130-400); RED CELL DISTRI WIDTH 14.1 % (0-14.5); WHITE BLOOD COUNT 8.2 10*3/uL (4.8-10.8)
[2020-10-27 10:44] LABS: ALBUMIN 2.8 gm/dl (3.1-4.5); CREATININE 6.55 mg/dL (0.55-1.02); POTASSIUM 5.2 mmol/L (3.5-5.1); TOTAL PROTEIN 7.4 gm/dL (6.4-8.2)
[2020-10-27 10:56] LABS: TROPONIN I 0.27 ng/ml (<0.045)
[2020-10-27 11:54] VITALS: BP 179/68
[2020-10-27 14:30] VITALS: BP 128/86
[2020-10-27 20:00] VITALS: BP 143/39
[2020-10-28] VITALS: BP 134/73
[2020-10-28 07:55] VITALS: BP 182/82
[2020-10-28 11:47] VITALS: BP 128/58
[2020-10-28 16:00] VITALS: BP 127/76
[2020-10-28 20:00] VITALS: BP 149/32
[2020-10-29] VITALS: BP 119/55
[2020-10-29 08:00] VITALS: BP 98/55
[2020-10-29 12:00] VITALS: BP 97/82
[2020-10-29 16:00] VITALS: BP 157/58
[2020-10-29 20:00] VITALS: BP 142/58
[2020-10-30 06:36] LABS: ALBUMIN 2.8 gm/dl (3.1-4.5); CREATININE 7.12 mg/dL (0.55-1.02); POTASSIUM 5.6 mmol/L (3.5-5.1); TOTAL PROTEIN 6.8 gm/dL (6.4-8.2)
[2020-10-30 07:55] VITALS: BP 162/93
[2020-10-30 12:00] VITALS: BP 164/88
[2020-10-30 16:00] VITALS: BP 116/66
[2020-10-30 20:00] VITALS: BP 124/43
[2020-10-31] VITALS: BP 119/58
[2020-10-31 06:15] LABS: HEMATOCRIT 43.4 % (37.0-47.0); MEAN CELL VOLUME 103.8 fl (81.0-99.0); MEAN CORPUSCULAR HGB 30.4 pg (27.0-31.0); MEAN CORPUSCULAR HGB CONC 29.3 g/dl (33.0-37.0); MEAN PLATELET VOLUME 11.5 fl (9.6-12.3); PLATELET COUNT AUTOMATED 274 10*3/uL (130-400); RED BLOOD COUNT 4.18 10*6/uL (4.10-5.10); RED CELL DISTRI WIDTH 14.2 % (0-14.5); WHITE BLOOD COUNT 8.4 10*3/uL (4.8-10.8)
[2020-10-31 06:26] LABS: CREATININE 5.23 mg/dL (0.55-1.02); POTASSIUM 5.2 mmol/L (3.5-5.1)
[2020-10-31 07:51] LABS: PLATELET SUFFICIENCY NORMAL (NORMAL); TOTAL CELLS COUNTED 100 #CELLS
[2020-10-31 08:00] VITALS: BP 138/60; BP 151/76
[2020-10-31 12:00] VITALS: BP 120/60
[2020-10-31 16:00] VITALS: BP 135/41
[2020-10-31 20:00] VITALS: BP 121/67
[2020-11-01] VITALS: BP 110/61
[2020-11-01 07:36] LABS: BASO % 0.1 % (0.0-1.0); HEMATOCRIT 45.3 % (37.0-47.0); LYMPH # 0.5 10*3/uL (1.3-4.4); LYMPH % 6.2 % (27.0-41.0); MEAN CELL VOLUME 103.7 fl (81.0-99.0); MEAN CORPUSCULAR HGB 30.7 pg (27.0-31.0); MEAN CORPUSCULAR HGB CONC 29.6 g/dl (33.0-37.0); MEAN PLATELET VOLUME 11.2 fl (9.6-12.3); MONO # 0.3 10*3/uL (0.1-1.0); MONO % 3.1 % (3.0-9.0); NEUT # 7.4 10*3/uL (2.3-7.9); NEUT % 88.2 % (47.0-73.0); NUCLEATED RED BLOOD CELL 0.4 % (0.0-0.0); PLATELET COUNT AUTOMATED 285 10*3/uL (130-400); RED BLOOD COUNT 4.37 10*6/uL (4.10-5.10); RED CELL DISTRI WIDTH 14.3 % (0-14.5); WHITE BLOOD COUNT 8.4 10*3/uL (4.8-10.8)
[2020-11-01 07:47] LABS: ALBUMIN 2.7 gm/dl (3.1-4.5); CREATININE 7.07 mg/dL (0.55-1.02); POTASSIUM 5.8 mmol/L (3.5-5.1)
[2020-11-01 08:00] VITALS: BP 148/53
[2020-11-01 16:00] VITALS: BP 119/52
[2020-11-01 20:00] VITALS: BP 104/46
[2020-11-02] VITALS: BP 90/50
[2020-11-02 08:00] VITALS: BP 112/52
[2020-11-02 12:00] VITALS: BP 130/50
[2020-11-02] MEDS ORDERED: DOXYCYCLINE100 M3 PO ×2 (13:28)
== END 2020-11-02 16:21 | disposition home or self-care (01) | DRG 189 ==
LOC: ED 10:06 → 4E 11:49 → EDHOLD 11:49 → 4E 13:50
PROVIDERS: Emergency Medicine; Internal Medicine; Internal Medicine Nephrology; Student in an Organized Health Care Education/Training Program; ADMIT Internal Medicine; ATTEND Internal Medicine
PROC: 5A1D70Z Performance of Urinary Filtration, Intermittent, Less than 6 Hours Per Day (ICD-10-PCS; principal; 2020-10-30)
DX: J96.01 Acute respiratory failure with hypoxia (principal); I21.A1 Myocardial infarction type 2; N18.6 End stage renal disease; I13.2 Hypertensive heart and chronic kidney disease with heart failure and with stage 5 chronic kidney disease, or end stage renal disease; J44.1 Chronic obstructive pulmonary disease with (acute) exacerbation; I16.1 Hypertensive emergency; Z68.42 Body mass index [BMI] 45.0-49.9, adult; Q61.3 Polycystic kidney, unspecified; L40.9 Psoriasis, unspecified; E20.9 Hypoparathyroidism, unspecified; E89.0 Postprocedural hypothyroidism; E66.01 Morbid (severe) obesity due to excess calories; I50.9 Heart failure, unspecified; T78.3XXA Angioneurotic edema, initial encounter; I25.10 Atherosclerotic heart disease of native coronary artery without angina pectoris; E55.9 Vitamin D deficiency, unspecified; K21.9 Gastro-esophageal reflux disease without esophagitis; I25.2 Old myocardial infarction; Z99.2 Dependence on renal dialysis; Z88.0 Allergy status to penicillin; Z88.8 Allergy status to other drugs, medicaments and biological substances; Z88.6 Allergy status to analgesic agent; Z88.1 Allergy status to other antibiotic agents; Z91.041 Radiographic dye allergy status; Z87.891 Personal history of nicotine dependence; Z82.49 Family history of ischemic heart disease and other diseases of the circulatory system; Z95.5 Presence of coronary angioplasty implant and graft

== ENCOUNTER 2020-11-09 21:11 | Inpatient (IN) | payer OTHER ==
[~2020-11-09] VITALS: Ht 162.5 cm; Wt 113.1 kg
[2020-11-09 21:15] VITALS: BP 139/79
[2020-11-10 01:11] LABS: BASO % 0.1 % (0.0-1.0); EOS # 0.4 10*3/uL (0.0-0.4); EOS % 2.9 % (1.0-4.0); HEMATOCRIT 33.9 % (37.0-47.0); LYMPH # 1.3 10*3/uL (1.3-4.4); LYMPH % 10.8 % (27.0-41.0); MEAN CELL VOLUME 101.5 fl (81.0-99.0); MEAN CORPUSCULAR HGB 31.4 pg (27.0-31.0); MEAN PLATELET VOLUME 11.6 fl (9.6-12.3); MONO # 1.2 10*3/uL (0.1-1.0); MONO % 9.8 % (3.0-9.0); NEUT # 9.3 10*3/uL (2.3-7.9); NEUT % 75.9 % (47.0-73.0); PLATELET COUNT AUTOMATED 199 10*3/uL (130-400); RED BLOOD COUNT 3.34 10*6/uL (4.10-5.10); RED CELL DISTRI WIDTH 15.6 % (0-14.5); WHITE BLOOD COUNT 12.2 10*3/uL (4.8-10.8)
[2020-11-10 01:28] LABS: ALBUMIN 2.2 gm/dl (3.1-4.5); CREATININE 6.1 mg/dL (0.55-1.02); POTASSIUM 4.7 mmol/L (3.5-5.1); TOTAL PROTEIN 5.4 gm/dL (6.4-8.2)
[2020-11-10 01:31] LABS: TROPONIN I 3.28 ng/ml (<0.045)
[2020-11-10 02:54] VITALS: BP 132/41
[2020-11-10 04:14] VITALS: BP 139/79
[2020-11-10 06:49] LABS: BASO % 0.1 % (0.0-1.0); EOS # 0.4 10*3/uL (0.0-0.4); EOS % 3.3 % (1.0-4.0); HEMATOCRIT 34.8 % (37.0-47.0); LYMPH # 1.2 10*3/uL (1.3-4.4); LYMPH % 11.1 % (27.0-41.0); MEAN CELL VOLUME 101.5 fl (81.0-99.0); MEAN CORPUSCULAR HGB 30.9 pg (27.0-31.0); MEAN CORPUSCULAR HGB CONC 30.5 g/dl (33.0-37.0); MEAN PLATELET VOLUME 11.2 fl (9.6-12.3); MONO # 1.1 10*3/uL (0.1-1.0); MONO % 10.1 % (3.0-9.0); NEUT # 8.3 10*3/uL (2.3-7.9); PLATELET COUNT AUTOMATED 194 10*3/uL (130-400); RED BLOOD COUNT 3.43 10*6/uL (4.10-5.10); RED CELL DISTRI WIDTH 15.5 % (0-14.5)
[2020-11-10 07:21] LABS: ALBUMIN 2.2 gm/dl (3.1-4.5); CREATININE 6.64 mg/dL (0.55-1.02); TOTAL PROTEIN 5.5 gm/dL (6.4-8.2)
[2020-11-10 08:00] VITALS: BP 113/53
[2020-11-10 12:00] VITALS: BP 127/61
[2020-11-10 16:00] VITALS: BP 123/65
[2020-11-10 20:00] VITALS: BP 105/48
[2020-11-11] VITALS: BP 103/47
== END 2020-11-11 10:06 | disposition short-term general hospital (02) | DRG 280 ==
LOC: ED 21:11 → EDHOLD 11-10 03:26 → 4E 11-10 04:03
PROVIDERS: Emergency Medicine; ADMIT Internal Medicine; ATTEND Internal Medicine
DX: I21.4 Non-ST elevation (NSTEMI) myocardial infarction (principal); E43 Unspecified severe protein-calorie malnutrition; N25.81 Secondary hyperparathyroidism of renal origin; Z68.41 Body mass index [BMI] 40.0-44.9, adult; N18.5 Chronic kidney disease, stage 5; N28.1 Cyst of kidney, acquired; E66.01 Morbid (severe) obesity due to excess calories; K21.9 Gastro-esophageal reflux disease without esophagitis; I11.0 Hypertensive heart disease with heart failure; L40.9 Psoriasis, unspecified; I25.118 Atherosclerotic heart disease of native coronary artery with other forms of angina pectoris; J44.9 Chronic obstructive pulmonary disease, unspecified; D64.9 Anemia, unspecified; J30.1 Allergic rhinitis due to pollen; G62.9 Polyneuropathy, unspecified; I50.9 Heart failure, unspecified; Z99.2 Dependence on renal dialysis; Z95.5 Presence of coronary angioplasty implant and graft; Z79.899 Other long term (current) drug therapy; Z79.82 Long term (current) use of aspirin; Z79.02 Long term (current) use of antithrombotics/antiplatelets; Z88.6 Allergy status to analgesic agent; Z88.8 Allergy status to other drugs, medicaments and biological substances; Z88.5 Allergy status to narcotic agent; Z88.1 Allergy status to other antibiotic agents; Z91.041 Radiographic dye allergy status; I25.2 Old myocardial infarction; Z87.01 Personal history of pneumonia (recurrent); Z87.891 Personal history of nicotine dependence; Z84.1 Family history of disorders of kidney and ureter; Z83.3 Family history of diabetes mellitus; Z82.49 Family history of ischemic heart disease and other diseases of the circulatory system; Z80.8 Family history of malignant neoplasm of other organs or systems

== ENCOUNTER 2020-12-24 22:27 | Emergency (ER) | payer OTHER ==
[~2020-12-24] VITALS: Ht 162.5 cm; Wt 111.2 kg
[2020-12-25 00:47] LABS: BASO % 0.4 % (0.0-1.0); EOS # 0.4 10*3/uL (0.0-0.4); EOS % 5.8 % (1.0-4.0); HEMATOCRIT 37.1 % (37.0-47.0); LYMPH # 1.3 10*3/uL (1.3-4.4); LYMPH % 18.3 % (27.0-41.0); MEAN CELL VOLUME 105.1 fl (81.0-99.0); MEAN CORPUSCULAR HGB 31.2 pg (27.0-31.0); MEAN CORPUSCULAR HGB CONC 29.6 g/dl (33.0-37.0); MEAN PLATELET VOLUME 12.4 fl (9.6-12.3); MONO # 0.8 10*3/uL (0.1-1.0); MONO % 10.8 % (3.0-9.0); NEUT # 4.6 10*3/uL (2.3-7.9); NEUT % 64.6 % (47.0-73.0); PLATELET COUNT AUTOMATED 134 10*3/uL (130-400); RED BLOOD COUNT 3.53 10*6/uL (4.10-5.10); RED CELL DISTRI WIDTH 14.1 % (0-14.5); WHITE BLOOD COUNT 7.1 10*3/uL (4.8-10.8)
[2020-12-25 01:04] LABS: ALBUMIN 2.6 gm/dl (3.1-4.5); CREATININE 5.93 mg/dL (0.55-1.02); POTASSIUM 4.2 mmol/L (3.5-5.1); TOTAL PROTEIN 6.2 gm/dL (6.4-8.2); TROPONIN I 0.024 ng/ml (<0.045)
[2021-01-02] MEDS ORDERED: GOOD NEIGHBOR5.8 MG PO (09:51)
[2021-01-02] MEDS ORDERED: Flonase 0.05% 120 Me NAS (09:51)
[2021-01-02] MEDS ORDERED: MEDROL DOSEPAK4 MG PO (09:52)
[2021-01-02] MEDS ORDERED: DOXYCYCLINE100 MG PO (09:52)
[2021-01-02] MEDS ORDERED: MUCINEX100 MG PO (10:32)
[2021-01-02] MEDS ORDERED: ONDANSETRON HYDR4 MG PO (13:18)
[2021-01-02] MEDS ORDERED: PEPCID40 MG PO (16:21)
== END 2020-12-25 03:45 | disposition home or self-care (01) ==
LOC: ED 22:27
PROVIDERS: Emergency Medicine
DX: J44.9 Chronic obstructive pulmonary disease, unspecified (principal); I13.2 Hypertensive heart and chronic kidney disease with heart failure and with stage 5 chronic kidney disease, or end stage renal disease; N18.6 End stage renal disease; I50.9 Heart failure, unspecified; I25.10 Atherosclerotic heart disease of native coronary artery without angina pectoris; I25.2 Old myocardial infarction; K21.9 Gastro-esophageal reflux disease without esophagitis; Z99.2 Dependence on renal dialysis; Z87.891 Personal history of nicotine dependence; Z98.890 Other specified postprocedural states; Z79.899 Other long term (current) drug therapy; Z91.041 Radiographic dye allergy status; Z88.1 Allergy status to other antibiotic agents; Z88.8 Allergy status to other drugs, medicaments and biological substances

== ENCOUNTER 2021-01-06 06:10 | Inpatient (IN) | payer OTHER ==
[~2021-01-06] VITALS: Ht 162.5 cm; Wt 107.6 kg
[2021-01-06] VITALS (10 sets, daily range): BP systolic 83–116; BP diastolic 39–65
[~2021-01-06 06:10] MED LIST changes: +DOXYCYCLINE100 MG PO; +Flonase 0.05% 120 Me NAS; +GOOD NEIGHBOR5.8 MG PO; +MUCINEX100 MG PO; +ONDANSETRON HYDR4 MG PO
[2021-01-06 06:42] LABS: BASO % 0.1 % (0.0-1.0); EOS # 0.7 10*3/uL (0.0-0.4); EOS % 4.4 % (1.0-4.0); HEMATOCRIT 33.3 % (37.0-47.0); LYMPH # 1.1 10*3/uL (1.3-4.4); LYMPH % 7.4 % (27.0-41.0); MEAN CELL VOLUME 101.2 fl (81.0-99.0); MEAN CORPUSCULAR HGB CONC 30.6 g/dl (33.0-37.0); MEAN PLATELET VOLUME 13.3 fl (9.6-12.3); MONO # 1.3 10*3/uL (0.1-1.0); MONO % 8.4 % (3.0-9.0); NEUT # 11.9 10*3/uL (2.3-7.9); NEUT % 79.1 % (47.0-73.0); PLATELET COUNT AUTOMATED 211 10*3/uL (130-400); RED BLOOD COUNT 3.29 10*6/uL (4.10-5.10); RED CELL DISTRI WIDTH 14.4 % (0-14.5)
[2021-01-06 06:55] LABS: ALBUMIN 2.5 gm/dl (3.1-4.5); CREATININE 9.18 mg/dL (0.55-1.02); TOTAL PROTEIN 5.2 gm/dL (6.4-8.2)
[2021-01-07] VITALS: BP 117/35
[2021-01-07 06:18] LABS: ACT PARTIAL THROMBO TIME 29.1 SECONDS (20.0-32.1)
[2021-01-07 06:23] LABS: EOS # 0.6 10*3/uL (0.0-0.4); EOS % 5.8 % (1.0-4.0); HEMATOCRIT 29.8 % (37.0-47.0); LYMPH # 1.1 10*3/uL (1.3-4.4); LYMPH % 10.9 % (27.0-41.0); MEAN CELL VOLUME 103.8 fl (81.0-99.0); MEAN CORPUSCULAR HGB 31.4 pg (27.0-31.0); MEAN CORPUSCULAR HGB CONC 30.2 g/dl (33.0-37.0); MEAN PLATELET VOLUME 13.5 fl (9.6-12.3); MONO # 1.2 10*3/uL (0.1-1.0); MONO % 11.8 % (3.0-9.0); NEUT # 7.3 10*3/uL (2.3-7.9); NEUT % 70.8 % (47.0-73.0); PLATELET COUNT AUTOMATED 160 10*3/uL (130-400); RED BLOOD COUNT 2.87 10*6/uL (4.10-5.10); RED CELL DISTRI WIDTH 14.6 % (0-14.5); WHITE BLOOD COUNT 10.4 10*3/uL (4.8-10.8)
[2021-01-07 06:27] LABS: ALBUMIN 2.1 gm/dl (3.1-4.5); TOTAL PROTEIN 4.9 gm/dL (6.4-8.2)
[2021-01-07 06:40] LABS: CREATININE 5.22 mg/dL (0.55-1.02); FREE T4 1.1 ng/dl (0.76-1.46); THYROID STIM HORMONE (HS) 0.164 uIU/ml (0.358-4.75)
[2021-01-07 06:42] LABS: POTASSIUM 4.5 mmol/L (3.5-5.1)
[2021-01-07 07:39] LABS: VITAMIN D, 25-HYDROXY 18.2 ng/mL (30-100)
[2021-01-07 08:00] VITALS: BP 72/32
[2021-01-07 12:00] VITALS: BP 98/38
[2021-01-07 12:30] VITALS: BP 106/44
[2021-01-07 16:00] VITALS: BP 96/40
[2021-01-07 20:00] VITALS: BP 123/47
[2021-01-08] VITALS: BP 129/45
[2021-01-08 08:00] VITALS: BP 107/40
[2021-01-08 08:30] VITALS: BP 100/56
[2021-01-08 15:11] LABS: BASO % 0.1 % (0.0-1.0); EOS # 0.6 10*3/uL (0.0-0.4); EOS % 5.2 % (1.0-4.0); HEMATOCRIT 33.3 % (37.0-47.0); LYMPH # 1.2 10*3/uL (1.3-4.4); LYMPH % 10.3 % (27.0-41.0); MEAN CELL VOLUME 105.7 fl (81.0-99.0); MEAN CORPUSCULAR HGB 31.4 pg (27.0-31.0); MEAN CORPUSCULAR HGB CONC 29.7 g/dl (33.0-37.0); MEAN PLATELET VOLUME 12.5 fl (9.6-12.3); MONO # 1.4 10*3/uL (0.1-1.0); MONO % 12.2 % (3.0-9.0); NEUT # 8.2 10*3/uL (2.3-7.9); NEUT % 71.5 % (47.0-73.0); PLATELET COUNT AUTOMATED 158 10*3/uL (130-400); RED BLOOD COUNT 3.15 10*6/uL (4.10-5.10); RED CELL DISTRI WIDTH 14.7 % (0-14.5); WHITE BLOOD COUNT 11.4 10*3/uL (4.8-10.8)
[2021-01-08 15:29] LABS: ALBUMIN 2.1 gm/dl (3.1-4.5); CREATININE 3.19 mg/dL (0.55-1.02); POTASSIUM 4.2 mmol/L (3.5-5.1); TOTAL PROTEIN 5.4 gm/dL (6.4-8.2)
[2021-01-08 16:00] VITALS: BP 104/81
[2021-01-08 20:00] VITALS: BP 114/44
[2021-01-09] VITALS: BP 107/49
[2021-01-09 05:45] LABS: CREATININE 4.55 mg/dL (0.55-1.02); POTASSIUM 4.9 mmol/L (3.5-5.1)
[2021-01-09 06:19] LABS: HEMATOCRIT 31.7 % (37.0-47.0); MEAN CELL VOLUME 106.7 fl (81.0-99.0); MEAN PLATELET VOLUME 12.8 fl (9.6-12.3); PLATELET COUNT AUTOMATED 169 10*3/uL (130-400); RED BLOOD COUNT 2.97 10*6/uL (4.10-5.10); RED CELL DISTRI WIDTH 14.8 % (0-14.5); WHITE BLOOD COUNT 11.8 10*3/uL (4.8-10.8)
[2021-01-09 06:47] LABS: ROULEAUX SLIGHT; TOTAL CELLS COUNTED 100 #CELLS
[2021-01-09 06:48] LABS: PLATELET SUFFICIENCY NORMAL (NORMAL); POLYCHROMASIA SLIGHT
[2021-01-09 08:00] VITALS: BP 105/52
[2021-01-09 12:00] VITALS: BP 113/46
[2021-01-09] MEDS ORDERED: CARVEDILOL12.5 MG PO (15:44)
[2021-01-09] MEDS ORDERED: PANTOPRAZOLE SO40 MG PO (15:46)
[2021-01-09] MEDS ORDERED: NYSTOP60 GM T (15:48)
[2021-01-09 16:00] VITALS: BP 110/50
== END 2021-01-09 17:56 | disposition home or self-care (01) | DRG 391 ==
LOC: ED 06:10 → 5E 07:27 → EDHOLD 07:27 → 5E 19:26
PROVIDERS: Internal Medicine; Social Worker Clinical; ADMIT Internal Medicine; ATTEND Internal Medicine
PROC: 5A1D70Z Performance of Urinary Filtration, Intermittent, Less than 6 Hours Per Day (ICD-10-PCS; principal; 2021-01-08)
DX: A08.4 Viral intestinal infection, unspecified (principal); E43 Unspecified severe protein-calorie malnutrition; N18.6 End stage renal disease; K80.20 Calculus of gallbladder without cholecystitis without obstruction; E86.9 Volume depletion, unspecified; M79.604 Pain in right leg; E87.5 Hyperkalemia; I50.9 Heart failure, unspecified; I95.3 Hypotension of hemodialysis; E83.41 Hypermagnesemia; D53.9 Nutritional anemia, unspecified; R73.9 Hyperglycemia, unspecified; I25.10 Atherosclerotic heart disease of native coronary artery without angina pectoris; R33.9 Retention of urine, unspecified; E83.39 Other disorders of phosphorus metabolism; N26.1 Atrophy of kidney (terminal); K21.9 Gastro-esophageal reflux disease without esophagitis; E86.0 Dehydration; Z68.39 Body mass index [BMI] 39.0-39.9, adult; Z82.49 Family history of ischemic heart disease and other diseases of the circulatory system; Z88.0 Allergy status to penicillin; Z88.6 Allergy status to analgesic agent; Z88.1 Allergy status to other antibiotic agents; Z91.041 Radiographic dye allergy status; Z88.8 Allergy status to other drugs, medicaments and biological substances; Z79.51 Long term (current) use of inhaled steroids

== ENCOUNTER 2021-01-11 06:00 | Inpatient (IN) | payer OTHER ==
[~2021-01-11] VITALS: Wt 114.4 kg
[2021-01-11 06:00] VITALS: BP 153/72
[~2021-01-11 06:00] MED LIST changes: +CARVEDILOL12.5 MG PO
[2021-01-11 06:29] LABS: HEMATOCRIT 31.7 % (37.0-47.0); MEAN CELL VOLUME 101.6 fl (81.0-99.0); MEAN CORPUSCULAR HGB 31.4 pg (27.0-31.0); MEAN CORPUSCULAR HGB CONC 30.9 g/dl (33.0-37.0); MEAN PLATELET VOLUME 12.9 fl (9.6-12.3); PLATELET COUNT AUTOMATED 218 10*3/uL (130-400); RED BLOOD COUNT 3.12 10*6/uL (4.10-5.10); RED CELL DISTRI WIDTH 14.8 % (0-14.5); WHITE BLOOD COUNT 9.7 10*3/uL (4.8-10.8)
[2021-01-11 07:01] LABS: PLATELET SUFFICIENCY NORMAL (NORMAL); TOTAL CELLS COUNTED 100 #CELLS
[2021-01-11 08:16] LABS: ALBUMIN 2.4 gm/dl (3.1-4.5); CREATININE 8.09 mg/dL (0.55-1.02); TOTAL PROTEIN 5.9 gm/dL (6.4-8.2); TROPONIN I 0.039 ng/ml (<0.045)
[2021-01-11 08:18] LABS: POTASSIUM 6.3 mmol/L (3.5-5.1)
[2021-01-11 11:31] VITALS: BP 143/80
[2021-01-11] MEDS ORDERED: FAMOTIDINE40 MG PO (11:47)
[2021-01-11 12:31] VITALS: BP 147/88
[2021-01-11 20:00] VITALS: BP 105/56
[2021-01-12] VITALS: BP 125/56
[2021-01-12 08:00] VITALS: BP 129/49
[2021-01-12 12:00] VITALS: BP 123/48
== END 2021-01-12 12:54 | disposition home or self-care (01) | DRG 302 ==
LOC: ED 06:00 → EDHOLD 08:33 → 4E 08:33
PROVIDERS: Emergency Medicine; ADMIT Internal Medicine; ATTEND Internal Medicine
PROC: 5A1D70Z Performance of Urinary Filtration, Intermittent, Less than 6 Hours Per Day (ICD-10-PCS; principal; 2021-01-11)
DX: I25.10 Atherosclerotic heart disease of native coronary artery without angina pectoris (principal); N18.6 End stage renal disease; E43 Unspecified severe protein-calorie malnutrition; Q61.3 Polycystic kidney, unspecified; I13.2 Hypertensive heart and chronic kidney disease with heart failure and with stage 5 chronic kidney disease, or end stage renal disease; R07.2 Precordial pain; J44.9 Chronic obstructive pulmonary disease, unspecified; K21.9 Gastro-esophageal reflux disease without esophagitis; E78.5 Hyperlipidemia, unspecified; E66.01 Morbid (severe) obesity due to excess calories; I50.9 Heart failure, unspecified; R73.9 Hyperglycemia, unspecified; G62.9 Polyneuropathy, unspecified; R19.7 Diarrhea, unspecified; I95.9 Hypotension, unspecified; D53.9 Nutritional anemia, unspecified; E83.41 Hypermagnesemia; E86.0 Dehydration; E83.39 Other disorders of phosphorus metabolism; L30.9 Dermatitis, unspecified; R25.2 Cramp and spasm; D72.829 Elevated white blood cell count, unspecified; Z99.2 Dependence on renal dialysis; Z95.5 Presence of coronary angioplasty implant and graft; Z87.891 Personal history of nicotine dependence; Z83.3 Family history of diabetes mellitus; Z82.49 Family history of ischemic heart disease and other diseases of the circulatory system; Z84.1 Family history of disorders of kidney and ureter; Z88.8 Allergy status to other drugs, medicaments and biological substances; Z88.1 Allergy status to other antibiotic agents; Z88.0 Allergy status to penicillin; I25.2 Old myocardial infarction; Z68.39 Body mass index [BMI] 39.0-39.9, adult

== ENCOUNTER 2021-01-14 05:03 | Emergency (ER) | payer OTHER ==
[~2021-01-14] VITALS: Ht 157.4 cm; Wt 111.6 kg
[~2021-01-14 05:03] MED LIST changes: +FAMOTIDINE40 MG PO
[2021-01-14 05:40] LABS: ALBUMIN 2.2 gm/dl (3.1-4.5); CREATININE 4.13 mg/dL (0.55-1.02); POTASSIUM 4.6 mmol/L (3.5-5.1); TOTAL PROTEIN 5.6 gm/dL (6.4-8.2)
[2021-01-14 05:41] LABS: TROPONIN I 0.038 ng/ml (<0.045)
[2021-01-14 06:00] LABS: BASO % 0.1 % (0.0-1.0); EOS # 0.4 10*3/uL (0.0-0.4); EOS % 4.5 % (1.0-4.0); HEMATOCRIT 33.1 % (37.0-47.0); LYMPH # 1.4 10*3/uL (1.3-4.4); LYMPH % 15.7 % (27.0-41.0); MEAN CELL VOLUME 106.4 fl (81.0-99.0); MEAN CORPUSCULAR HGB 31.5 pg (27.0-31.0); MEAN CORPUSCULAR HGB CONC 29.6 g/dl (33.0-37.0); MONO # 0.8 10*3/uL (0.1-1.0); MONO % 9.4 % (3.0-9.0); NEUT % 69.4 % (47.0-73.0); PLATELET COUNT AUTOMATED 137 10*3/uL (130-400); RED BLOOD COUNT 3.11 10*6/uL (4.10-5.10); RED CELL DISTRI WIDTH 14.8 % (0-14.5); WHITE BLOOD COUNT 8.6 10*3/uL (4.8-10.8)
== END 2021-01-14 10:20 | disposition home or self-care (01) ==
LOC: ED 05:03
PROVIDERS: Internal Medicine
DX: R07.89 Other chest pain (principal); R06.02 Shortness of breath; Z95.5 Presence of coronary angioplasty implant and graft; Z91.041 Radiographic dye allergy status; Z88.8 Allergy status to other drugs, medicaments and biological substances; Z88.1 Allergy status to other antibiotic agents; Z88.0 Allergy status to penicillin; Z88.5 Allergy status to narcotic agent; Z79.899 Other long term (current) drug therapy; Z79.82 Long term (current) use of aspirin; Z90.89 Acquired absence of other organs; Z98.890 Other specified postprocedural states; Z87.891 Personal history of nicotine dependence

== ENCOUNTER 2021-01-20 11:15 | Emergency (ER) | payer OTHER ==
[~2021-01-20] VITALS: Ht 162.5 cm; Wt 112.7 kg
[2021-01-20 11:52] LABS: BASO % 0.2 % (0.0-1.0); EOS # 0.5 10*3/uL (0.0-0.4); EOS % 4.4 % (1.0-4.0); HEMATOCRIT 30.6 % (37.0-47.0); LYMPH # 1.1 10*3/uL (1.3-4.4); MEAN CELL VOLUME 106.6 fl (81.0-99.0); MEAN CORPUSCULAR HGB 31.7 pg (27.0-31.0); MEAN CORPUSCULAR HGB CONC 29.7 g/dl (33.0-37.0); MEAN PLATELET VOLUME 11.3 fl (9.6-12.3); MONO # 1.3 10*3/uL (0.1-1.0); MONO % 11.9 % (3.0-9.0); NEUT % 73.2 % (47.0-73.0); PLATELET COUNT AUTOMATED 246 10*3/uL (130-400); RED BLOOD COUNT 2.87 10*6/uL (4.10-5.10); RED CELL DISTRI WIDTH 14.9 % (0-14.5); WHITE BLOOD COUNT 10.9 10*3/uL (4.8-10.8)
[2021-01-20 12:09] LABS: ALBUMIN 2.3 gm/dl (3.1-4.5); CREATININE 3.45 mg/dL (0.55-1.02); POTASSIUM 3.9 mmol/L (3.5-5.1); TOTAL PROTEIN 5.7 gm/dL (6.4-8.2)
== END 2021-01-20 15:05 | disposition home or self-care (01) ==
LOC: ED 11:15
PROVIDERS: Internal Medicine
DX: T82.838A Hemorrhage due to vascular prosthetic devices, implants and grafts, initial encounter (principal); Z88.8 Allergy status to other drugs, medicaments and biological substances; Z91.041 Radiographic dye allergy status; Z88.0 Allergy status to penicillin; Z88.5 Allergy status to narcotic agent; Z79.899 Other long term (current) drug therapy; Z79.82 Long term (current) use of aspirin; Z98.890 Other specified postprocedural states; Z95.818 Presence of other cardiac implants and grafts; Y92.89 Other specified places as the place of occurrence of the external cause

== ENCOUNTER 2021-03-12 11:35 | Emergency (ER) | payer OTHER ==
[~2021-03-12] VITALS: Wt 109.3 kg
[2021-03-12 13:47] LABS: BASO % 0.3 % (0.0-1.0); EOS # 0.4 10*3/uL (0.0-0.4); EOS % 6.3 % (1.0-4.0); LYMPH % 16.9 % (27.0-41.0); MEAN CELL VOLUME 105.4 fl (81.0-99.0); MEAN CORPUSCULAR HGB 31.4 pg (27.0-31.0); MEAN CORPUSCULAR HGB CONC 29.7 g/dl (33.0-37.0); MEAN PLATELET VOLUME 11.2 fl (9.6-12.3); MONO # 0.9 10*3/uL (0.1-1.0); MONO % 14.1 % (3.0-9.0); NEUT # 3.8 10*3/uL (2.3-7.9); NEUT % 62.2 % (47.0-73.0); PLATELET COUNT AUTOMATED 218 10*3/uL (130-400); WHITE BLOOD COUNT 6.2 10*3/uL (4.8-10.8)
[2021-03-12 14:05] LABS: ALBUMIN 2.7 gm/dl (3.1-4.5); ALKALINE PHOSPHATASE 133 U/L (45-117); BUN 9 mg/dl (7-24); CHLORIDE 102 mmol/L (98-107); CREATININE 2.93 mg/dL (0.55-1.02); LIPASE 244 U/L (73-393); POTASSIUM 4.2 mmol/L (3.5-5.1); SGOT/AST 18 IU/L (3-35); SGPT/ALT 16 U/L (12-78); SODIUM 138 mmol/L (136-145); TOTAL PROTEIN 6.2 gm/dL (6.4-8.2)
[2021-03-12 14:07] LABS: TROPONIN I < 0.015 ng/ml (<0.045)
== END 2021-03-12 19:15 | disposition home or self-care (01) ==
LOC: ED 11:35
PROVIDERS: Physician Assistant
DX: T80.90XA Unspecified complication following infusion and therapeutic injection, initial encounter (principal); R42 Dizziness and giddiness; Z91.041 Radiographic dye allergy status; Z88.0 Allergy status to penicillin; Z88.8 Allergy status to other drugs, medicaments and biological substances; Z88.1 Allergy status to other antibiotic agents; Z79.899 Other long term (current) drug therapy; Z87.891 Personal history of nicotine dependence

== ENCOUNTER 2021-05-25 15:49 | Inpatient (IN) | payer OTHER ==
[~2021-05-25] VITALS: Ht 162.5 cm; Wt 111.2 kg
[2021-05-25 15:50] VITALS: BP 169/59
[2021-05-25 16:26] LABS: BASO % 0.1 % (0.0-1.0); EOS # 0.4 10*3/uL (0.0-0.4); EOS % 5.9 % (1.0-4.0); HEMATOCRIT 41.1 % (37.0-47.0); LYMPH # 1.4 10*3/uL (1.3-4.4); LYMPH % 20.8 % (27.0-41.0); MEAN CELL VOLUME 103.8 fl (81.0-99.0); MEAN CORPUSCULAR HGB 31.3 pg (27.0-31.0); MEAN CORPUSCULAR HGB CONC 30.2 g/dl (33.0-37.0); MEAN PLATELET VOLUME 11.3 fl (9.6-12.3); MONO # 0.9 10*3/uL (0.1-1.0); MONO % 12.9 % (3.0-9.0); NEUT # 4.2 10*3/uL (2.3-7.9); NEUT % 60.2 % (47.0-73.0); PLATELET COUNT AUTOMATED 191 10*3/uL (130-400); RED BLOOD COUNT 3.96 10*6/uL (4.10-5.10); RED CELL DISTRI WIDTH 13.9 % (0-14.5); WHITE BLOOD COUNT 6.9 10*3/uL (4.8-10.8)
[2021-05-25 16:39] LABS: ACT PARTIAL THROMBO TIME 31.7 SECONDS (20.0-32.1)
[2021-05-25 16:43] LABS: ALBUMIN 2.8 gm/dl (3.1-4.5); CREATININE 7.72 mg/dL (0.55-1.02); TOTAL PROTEIN 6.7 gm/dL (6.4-8.2); TROPONIN I 0.027 ng/ml (<0.045)
[2021-05-25 16:51] LABS: POTASSIUM 6.2 mmol/L (3.5-5.1)
[2021-05-25 18:24] VITALS: BP 129/28
[2021-05-25 20:00] VITALS: BP 133/74
[2021-05-26] VITALS (7 sets, daily range): BP systolic 115–152; BP diastolic 48–80
[2021-05-26 12:42] LABS: CREATININE 8.84 mg/dL (0.55-1.02)
[2021-05-26 13:04] LABS: POTASSIUM 6.9 mmol/L (3.5-5.1)
[2021-05-26 13:05] LABS: ALBUMIN 2.7 gm/dl (3.1-4.5)
[2021-05-27] VITALS: BP 132/48
[2021-05-27 06:59] LABS: CREATININE 7.36 mg/dL (0.55-1.02)
[2021-05-27 07:00] LABS: POTASSIUM 5.6 mmol/L (3.5-5.1)
[2021-05-27 08:00] VITALS: BP 121/52
[2021-05-27 12:00] VITALS: BP 96/62
[2021-05-27 16:00] VITALS: BP 100/76
[2021-05-27 20:00] VITALS: BP 91/51
[2021-05-27 20:29] VITALS: BP 116/78
[2021-05-28 02:10] VITALS: BP 112/62
[2021-05-28 08:00] VITALS: BP 120/86
[2021-05-28 12:00] VITALS: BP 111/60
[2021-05-28 16:00] VITALS: BP 92/61
[2021-05-28] MEDS ORDERED: VIBRA-TAB100 MG PO (16:59)
== END 2021-05-28 18:40 | disposition home or self-care (01) | DRG 189 ==
LOC: ED 15:49 → EDHOLD 19:37 → 4E 19:37
PROVIDERS: Emergency Medicine; Internal Medicine Nephrology; Student in an Organized Health Care Education/Training Program; ADMIT Internal Medicine; ATTEND Internal Medicine
PROC: 5A1D70Z Performance of Urinary Filtration, Intermittent, Less than 6 Hours Per Day (ICD-10-PCS; principal; 2021-05-26)
DX: J96.20 Acute and chronic respiratory failure, unspecified whether with hypoxia or hypercapnia (principal); N18.6 End stage renal disease; I13.2 Hypertensive heart and chronic kidney disease with heart failure and with stage 5 chronic kidney disease, or end stage renal disease; N25.81 Secondary hyperparathyroidism of renal origin; J44.0 Chronic obstructive pulmonary disease with (acute) lower respiratory infection; Z68.42 Body mass index [BMI] 45.0-49.9, adult; Q61.3 Polycystic kidney, unspecified; E44.0 Moderate protein-calorie malnutrition; Z20.822 Contact with and (suspected) exposure to COVID-19; S21.209A Unspecified open wound of unspecified back wall of thorax without penetration into thoracic cavity, initial encounter; D63.1 Anemia in chronic kidney disease; K21.9 Gastro-esophageal reflux disease without esophagitis; L40.9 Psoriasis, unspecified; I50.9 Heart failure, unspecified; E87.5 Hyperkalemia; I25.10 Atherosclerotic heart disease of native coronary artery without angina pectoris; N18.9 Chronic kidney disease, unspecified; E66.01 Morbid (severe) obesity due to excess calories; E53.8 Deficiency of other specified B group vitamins; Z99.2 Dependence on renal dialysis; Z95.5 Presence of coronary angioplasty implant and graft; X58.XXXA Exposure to other specified factors, initial encounter; Z91.041 Radiographic dye allergy status; Z88.8 Allergy status to other drugs, medicaments and biological substances; Z82.49 Family history of ischemic heart disease and other diseases of the circulatory system; Y93.89 Activity, other specified; Y92.89 Other specified places as the place of occurrence of the external cause; Y99.8 Other external cause status; Z87.891 Personal history of nicotine dependence

== ENCOUNTER 2021-06-08 20:22 | Emergency (ER) | payer OTHER ==
[~2021-06-08 20:22] MED LIST changes: +VIBRA-TAB100 MG PO
[2021-06-08 20:45] LABS: BASO % 0.3 % (0.0-1.0); EOS # 0.4 10*3/uL (0.0-0.4); EOS % 4.2 % (1.0-4.0); HEMATOCRIT 38.8 % (37.0-47.0); LYMPH # 1.5 10*3/uL (1.3-4.4); LYMPH % 15.2 % (27.0-41.0); MEAN CELL VOLUME 102.4 fl (81.0-99.0); MEAN CORPUSCULAR HGB 30.3 pg (27.0-31.0); MEAN CORPUSCULAR HGB CONC 29.6 g/dl (33.0-37.0); MEAN PLATELET VOLUME 11.1 fl (9.6-12.3); MONO % 10.3 % (3.0-9.0); NEUT # 6.7 10*3/uL (2.3-7.9); NEUT % 69.7 % (47.0-73.0); PLATELET COUNT AUTOMATED 218 10*3/uL (130-400); RED BLOOD COUNT 3.79 10*6/uL (4.10-5.10); RED CELL DISTRI WIDTH 14.4 % (0-14.5); WHITE BLOOD COUNT 9.6 10*3/uL (4.8-10.8)
[2021-06-08 21:01] LABS: ALBUMIN 2.9 gm/dl (3.1-4.5); CREATININE 8.79 mg/dL (0.55-1.02); POTASSIUM 5.5 mmol/L (3.5-5.1); TOTAL PROTEIN 6.6 gm/dL (6.4-8.2)
== END 2021-06-08 23:23 | disposition home or self-care (01) ==
LOC: ED 20:22
PROVIDERS: Nurse Practitioner Family
DX: J06.9 Acute upper respiratory infection, unspecified (principal); Z91.041 Radiographic dye allergy status; Z88.0 Allergy status to penicillin; Z88.1 Allergy status to other antibiotic agents; Z88.8 Allergy status to other drugs, medicaments and biological substances; Z88.6 Allergy status to analgesic agent; Z79.899 Other long term (current) drug therapy; Z87.891 Personal history of nicotine dependence

== ENCOUNTER 2021-06-14 20:40 | Emergency (ER) | payer OTHER ==
[~2021-06-14] VITALS: Ht 162.5 cm; Wt 107.0 kg
[2021-06-14] MEDS ORDERED: [UNRECOGNIZED DRUG - OTHER] SQ (20:56)
[2021-06-14] MEDS ORDERED: HYDROCODONE-AC1 EAC1 PO (20:57)
[2021-06-14] MEDS ORDERED: FAMOTIDINE20 M1 PO (20:58)
[2021-06-14 21:26] LABS: BASO % 0.2 % (0.0-1.0); EOS # 0.4 10*3/uL (0.0-0.4); EOS % 4.3 % (1.0-4.0); HEMATOCRIT 33.6 % (37.0-47.0); LYMPH # 1.1 10*3/uL (1.3-4.4); LYMPH % 11.7 % (27.0-41.0); MEAN CELL VOLUME 104.3 fl (81.0-99.0); MEAN CORPUSCULAR HGB 30.7 pg (27.0-31.0); MEAN CORPUSCULAR HGB CONC 29.5 g/dl (33.0-37.0); MEAN PLATELET VOLUME 10.9 fl (9.6-12.3); MONO # 1.1 10*3/uL (0.1-1.0); NEUT # 6.7 10*3/uL (2.3-7.9); NEUT % 71.5 % (47.0-73.0); PLATELET COUNT AUTOMATED 186 10*3/uL (130-400); RED BLOOD COUNT 3.22 10*6/uL (4.10-5.10); RED CELL DISTRI WIDTH 14.6 % (0-14.5); WHITE BLOOD COUNT 9.4 10*3/uL (4.8-10.8)
[2021-06-14 21:43] LABS: ALBUMIN 2.8 gm/dl (3.1-4.5); CREATININE 5.29 mg/dL (0.55-1.02); POTASSIUM 4.1 mmol/L (3.5-5.1)
== END 2021-06-15 04:43 | disposition short-term general hospital (02) ==
LOC: ED 20:40
PROVIDERS: Emergency Medicine
DX: I77.89 Other specified disorders of arteries and arterioles (principal)